=== PATIENT | male | born 1980 | race Caucasian/White ===

== ENCOUNTER 2020-07-23 13:55 | Outpatient (REF) | payer OTHER, SELFPAY | END 2020-07-23 13:56 | disposition home or self-care (01) | LOC: HO.LAB 13:55 | PROVIDERS: Visit Provider Internal Medicine | DX: Z20.828 Contact with and (suspected) exposure to other viral communicable diseases (principal) | CPT/HCPCS: C9803; U0003 ==

== ENCOUNTER 2022-10-01 09:31 | Outpatient (REF) | payer OTHER, SELFPAY ==
[2022-10-01 11:32] LABS: Hematocrit 38.7 % (42.0-52.0); Hemoglobin 13.5 g/dl (14.0-18.0); Mean Corpuscular HGB Conc 34.9 g/dl (31.0-36.0); Mean Corpuscular Volume 88.8 fL (80.0-98.0); Mean Platelet Volume 10.9 fL (9.4-12.4); Platelet Count 268 X10*3/uL (160-400); Red Blood Count 4.36 X10*6/uL (4.60-5.80); Red Cell Distribution Width 11.2 % (11.0-16.0); White Blood Count 5.7 X10*3/uL (4.8-10.8)
[2022-10-01 11:57] LABS: Alanine Aminotransferase 26 U/L (0-40); Albumin Level 4.3 g/dL (3.5-5.0); Alkaline Phosphatase 75 U/L (39-117); Anion Gap 13 (12-20); Aspartate Amino Transferase 23 U/L (5-37); Bilirubin Total 0.6 mg/dL (0.0-1.0); Blood Urea Nitrogen 14 mg/dL (9-16); Calcium 9.5 mg/dL (8.4-10.2); Carbon Dioxide 27 mmol/L (22-29); Chloride 105 mmol/L (96-108); Cholesterol 121 mg/dL; Estimated Glomerular Filt Rate > 60; Glucose Fasting 106 mg/dL (60-99); HDL Cholesterol 30 mg/dL; LDL Cholesterol Calculated 80 mg/dl; Potassium 4.5 mmol/L (3.3-5.1); Sodium 140 mmol/L (135-145); Total Protein 7.2 g/dL (6.5-8.0); Triglycerides 58 mg/dL
[2022-10-01 12:21] LABS: TSH reflex Free T4 2.07 uIU/mL (0.32-4.0)
== END 2022-10-01 09:32 | disposition home or self-care (01) ==
LOC: HO.WFDLDS 09:31
PROVIDERS: Visit Provider Nurse Practitioner Family
DX: Z00.00 Encounter for general adult medical examination without abnormal findings (principal)
CPT/HCPCS: 36415; 80053; 80061; 84443; 85027

== ENCOUNTER 2022-12-03 08:59 | Outpatient (REF) | payer OTHER, SELFPAY ==
[2022-12-03 12:01] LABS: Hematocrit 41.9 % (42.0-52.0); Hemoglobin 14.6 g/dl (14.0-18.0); Mean Corpuscular HGB Conc 34.8 g/dl (31.0-36.0); Mean Corpuscular Hemoglobin 30.6 pg (27.0-33.0); Mean Corpuscular Volume 87.8 fL (80.0-98.0); Mean Platelet Volume 11.8 fL (9.4-12.4); Platelet Count 198 X10*3/uL (160-400); Red Blood Count 4.77 X10*6/uL (4.60-5.80); Red Cell Distribution Width 11.9 % (11.0-16.0); White Blood Count 6.6 X10*3/uL (4.8-10.8)
[2022-12-09 18:42] LABS: PSA, Ultra Sensitive 0.44 ng/mL
== END 2022-12-03 09:00 | disposition home or self-care (01) ==
LOC: HO.WFDLDS 08:59
PROVIDERS: Visit Provider Hospitalist
DX: D64.9 Anemia, unspecified (principal); Z12.5 Encounter for screening for malignant neoplasm of prostate
CPT/HCPCS: 36415; 84153; 85027

== ENCOUNTER 2023-10-22 08:43 | Outpatient (AMB) | payer OTHER, SELFPAY ==
--- NOTE | 2023-10-22 08:48 | A.OFFPC_ITS ---
Vital Signs 10/22/23 08:55 Height 5 ft 11 in Weight 231 lb BMI 32.2 BP 108/56 L Blood Pressure Location Lt brachial Position Sitting Respiration 12 Pulse 57 Pulse Source Pulse Oximeter Temp 97.3 F Temp Source Temporal Artery Scan Pulse Oximetry (%) 98 Oxygen Delivery Method Room Air Intake Visit Reasons: DANYELL from [facility] Intake Note: Patient is here for a transfer of care from to . Patient reports L hand shaking, patient states shaking is at random. Patient reports recent loss of his father about 2 weeks ago. Patient reports concern for L large toenail. Felt Coverer Required: No Accompanied by: Self / Same As Patient Allergies mushroom [MUSHROOM] Allergy (Intermediate, Verified 10/22/23 09:35) SHORTNESS OF BREATH Seasonal Allergies Allergy (Intermediate, Verified 10/22/23 09:35) Unknown Medication List - Last Reconciled 10/22/23 by Aylin Pizarro, SOFTWARE TESTER- aripiprazole 5 mg PO aripiprazole ER mg IM bupropion HCl 75 mg PO DAILY cetirizine 10 mg PO DAILY cholecalciferol (vitamin D3) 50 mcg PO DAILY fluticasone propionate 50 mcg/actuation 2 sprays intranasal DAILY 1 month melatonin 3 mg PO BEDTIME meloxicam 15 mg PO DAILY sodium chloride 0.65% 2 sprays intranasal Q3H Tobacco use date assessed: 10/22/23 Dental Screening Dental Screen Date: 10/22/23 Did you have a dental visit in the last 12 months?: Yes Did you have a dental problem in the last 6 months where you did not have access to dental care?: No Was dental information given to patient?: Patient has dentist HPI HPI Comments History of Present Illness Details 43-year-old male with anemia, schizoaffe ctive disorder, MDD, generalized anxiety disorder, obesity, gout, chronic tension headaches, GERD, vitamin-D deficiency, allergic rhinitis Status post tracheostomy in February 2023 due to a retropharyngeal abscess with extension into the superior mediastinum positive for strep Specialists ENT * cleared for f/u Psych N Counselor [facility] Neurology - never did f/u Orthopedics Here today to est care Left great toe nail thickened for months. Reports started after getting in grown toe nail. Tx by podiatry. No at home treatment Left hand tremor. Acute on chronic. Worse since passing of his Dad 2 weeks ago. Was referred to neurology in the past by previous PCP however he did not attend this appointment. He has not sure why. Reports cramping in right calf. Occurs at bedtime. Reports good fluid intake. Has tried to massage the area and deep breathe to help. Walking off can help. Schizoaffective disorder, MDD, generalized anxiety disorder all managed by outside prescriber. Reports noncompliance with his medications. He is also active with a counselor States that his dad age 79 2 weeks ago of colon cancer. He wonders if he should have an early colon cancer screening with a colonoscopy. He has not currently active with GI and interested in a referral. [facility] Medical History Left knee pain History of retropharyngeal abscess Tremor of left hand Right anterior knee pain Surgical History S/P emergency tracheotomy for assistance in breathing History of surgery Labral tear of right hip joint Family History Father Colon cancer Alcoholism Mother Arthritis Daughter GERD (gastroesophageal reflux disease) Family/Other FH: mental illness Schizo affective schizophrenia Brother In good health Social History (Updated 10/22/23 @ 09:09 by Anushka Johnson CMA) Household Members: Other Household Members Other:: [facility] Housing: Other ([facility]) 75 years or older and lives alone: No Alcohol intake: never Patient Tobacco Use Status: Never used Tobacco e-Cigarette/Vaping Use: Never Used Second Hand Smoke Exposure: No service: No Current occupational status: employed 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 1. Little interest or pleasure in doing things: not at all 2. Feeling down, depressed, or hopeless: several days 3. Trouble falling or staying asleep, or sleeping too much: not at all 4. Feeling tired or having little energy: not at all 5. Poor appetite or overeating: not at all 6. Feeling bad about yourself - or that you are a failure or have let yourself or your family down: not at all 7. Trouble concentrating on things, such as reading the newspaper or watching television: not at all 8. Moving or speaking so slowly that other people could have noticed. Or the opposite - being so fidgety or restless that you have been moving around a lot more than usual: not at all 9. Thoughts that you would be better off or of hurting yourself in some way: not at all Total score: 1 Depression Screening Interpretation: Positive Depression Screening Follow-up: Existing condition and In treatment Depression Screening Done: Yes 00089 - PHQ-9 Billing: Yes Source: Developed by Drs. Anderson Mijares, Shanda Sloan, Gurpreet Cabezas and colleagues, with an educational sandra from [employer]. Thrive Questionnaire Date Thrive assessed: 10/22/23 I am a: Patient What is your living situation today?: I have a steady place to live Within the past 12 months, did the food you bought not last and you didn't have the money to get more?: Never true Within the past 12 months, did you worry whether your food would run out before you got money to buy more?: Never true Do you have trouble paying for medicines?: No Do you have trouble getting transportation to medical appointments?: No Do you have trouble paying your heating and electricity bill?: No Do you have trouble taking care of your child, family member or friend?: No Do you have trouble with day-to-day activities such as bathing, preparing meals, shopping, managing finances, etc.?: No Are you currently unemployed and looking for a job?: No Are you interested in more education?: No Please select the resources that you would like help with: None Currently or been in a relationship where the following occur: no concerns reported THRIVE Score: 0 AUDIT C Alcohol Use Questionnaire (AUDIT-C) 1. How often do you have a drink containing alcohol?: Never 3. How often do you have six or more drinks on one occasion?: Never Total Score: 0 Score Reviewed/Action Taken: Yes NIRU-7 AMB Questionnaire NIRU-7 Date NIRU - 7 assessed: 10/22/23 Feeling nervous, anxious, or on edge: 0 = Not at all Not being able to stop or control worryin = Not at all Worrying too much about different things: 0 = Not at all Trouble relaxin = Not at all Being so restless that it is hard to sit still: 0 = Not at all Becoming easily annoyed or irritable: 0 = Not at all Feeling afraid as if something awful might happen: 0 = Not at all Total NIRU-7 score (0-4 normal; 5-9 mild; 10-14 moderate; 15-21 severe): 0 Source: Developed by Drs. Anderson Mijares, Shanda Sloan, Gurpreet Cabezas and colleagues, with an educational sandra from [employer]. NIRU-7 Assessment Billing NIRU-7 Assessment Tool: NIRU-7 Assessment 27279 Review of Systems Const All systems reviewed & are unremarkable except as noted in HPI and below Physical exam (Primary Care) Vital Signs: Last Vital Signs Temp 97.3 F 10/22/23 08:55 Pulse 57 10/22/23 08:55 Resp 12 10/22/23 08:55 BP 108/56 L 10/22/23 08:55 Pulse Ox 98 10/22/23 08:55 Oxygen Delivery Method Room Air 10/22/23 08:55 BMI result Body Mass Index 32.2 Tobacco/Smoking Status: Tobacco use Status Tobacco use date assessed 10/22/23 10/22/23 09:08 Patient Tobacco Use Status Never used Tobacco 10/22/23 09:09 e-Cigarette/Vaping Use Never Used 10/22/23 09:09 PHQ-9: PHQ-9 Score PHQ-9: Total score 1 10/22/23 09:08 Depression Screening Interpretation: Positive Depression Screening Follow-up: Existing condition and In treatment Thrive Assessment: Date of Thrive Assessment Date Thrive assessed 10/22/23 10/22/23 09:08 Currently or been in a relationship where the following occur: no concerns reported Const Other: awake alert NAD MMM RRR LS CTAB Left great toe nail onychomycosis Right lower ext WNL. Reports mild tenderness w/ calf palpation. Neurovasc intact Mood and affect appropriate No tremors noted during exam Assessment and Plan Assessment & Plan (1) MDD (major depressive disorder), recurrent episode: Comment: Currently managed on Abilify injectable as well as p.o., and bupropion by outside prescriber at [facility]. Also active with Psychiatry. Encouraged to follow up Code(s): F33.9 - Major depressive disorder, recurrent, unspecified Qualifiers: Major depression episode severity: moderate Qualified Code(s): F33.1 - Major depressive disorder, recurrent, moderate (2) NIRU (generalized anxiety disorder): Comment: Currently managed on Abilify injectable as well as p.o., and bupropion by outside prescriber at [facility]. Also active with Psychiatry. Encouraged to follow up Code(s): F41.1 - Generalized anxiety disorder (3) Vitamin D deficiency: Comment: Currently on vitamin D3 50 mcgs p.o. daily. We will check a vitamin-D level today Code(s): E55.9 - Vitamin D deficiency, unspecified (4) Allergic rhinitis: Comment: Managed with Flonase. Also taking cetirizine. Continue these medications as they are controlling his symptoms Code(s): J30.9 - Allergic rhinitis, unspecified Qualifiers: Allergic rhinitis seasonality: seasonal Allergic rhinitis trigger: other Qualified Code(s): J30.89 - Other allergic rhinitis (5) Benign essential tremor: Comment: Affecting the left hand only. We will refer to neurology for further evaluation and treatment Code(s): G25.0 - Essential tremor (6) Schizoaffective disorder: Comment: Currently managed on Abilify injectable as well as p.o., and bupropion by outside prescriber at [facility]. Also active with Psychiatry. Encouraged to follow up Code(s): F25.9 - Schizoaffective disorder, unspecified Qualifiers: Schizoaffective disorder type: bipolar Qualified Code(s): F25.0 - Schizoaffective disorder, bipolar type (7) Obesity (BMI 30.0-34.9): Comment: BMI 32.2. Lifestyle modifications encouraged Code(s): E66.9 - Obesity, unspecified (8) Onychomycosis: Comment: Affecting left great toenail. We will refer to podiatry for further evaluation and treatment Code(s): B35.1 - Tinea unguium (9) Family history of colon cancer: Comment: Dad, age 79 of colon CA 2024 He is interested in meeting with GI to see what his risks are to see if he would benefit from an earlier colon cancer screening Code(s): Z80.0 - Family history of malignant neoplasm of digestive organs (10) Leg cramping: Code(s): R25.2 - Cramp and spasm Plan: We will check electrolytes today. And bring him back to discuss. However this is only affecting 1 lichen it seems to be mostly at night. It sounds like a Charley horse. Likely he will just need supportive care such as hydration (11) Anemia: Comment: . Noted in his records. We will obtain labs today and follow up with him Code(s): D64.9 - Anemia, unspecified Qualifiers: Anemia type: unspecified type Qualified Code(s): D64.9 - Anemia, unspecified (12) Prostate cancer screening: Code(s): Z12.5 - Encounter for screening for malignant neoplasm of prostate Plan This note is constructed using voice recognition software. While every effort has been made to ensure accuracy in macaroni maker, still errors may have been included Sometimes, these errors may affect the content or meaning of the given sentence . Total time spent caring for the patient today was 45 minutes. This includes time spent before the visit reviewing the chart, time spent during the visit, and time spent after the visit on documentation Orders: Orders Comprehensive [place]. Panel Fast Today D64.9 - Anemia, unspecified, E55.9 - Vitamin D deficiency, unspecified, F33.9 - Major depressive disorder, recurrent, unspecified, F41.1 - Generalized anxiety disorder, J30.9 - Allergic rhinitis, unspecified, M10.9 - Gout, unspecified Vitamin D 1,25 dihydroxy Today D64.9 - Anemia, unspecified, E55.9 - Vitamin D deficiency, unspecified, F33.9 - Major depressive disorder, recurrent, unspecified, F41.1 - Generalized anxiety disorder, J30.9 - Allergic rhinitis, unspecified, M10.9 - Gout, unspecified Lipid Panel Today D64.9 - Anemia, unspecified, E55.9 - Vitamin D deficiency, unspecified, F33.9 - Major depressive disorder, recurrent, unspecified, F41.1 - Generalized anxiety disorder, J30.9 - Allergic rhinitis, unspecified, M10.9 - Gout, unspecified IRON PROFILE Today D64.9 - Anemia, unspecified, K21.9 - Gastro-esophageal reflux disease without esophagitis, Z12.5 - Encounter for screening for malignant neoplasm of prostate Vitamin B12 and Folate Today D64.9 - Anemia, unspecified, K21.9 - Gastro- esophageal reflux disease without esophagitis, Z12.5 - Encounter for screening for malignant neoplasm of prostate Microalbumin, Random (w Creat) Today D64.9 - Anemia, unspecified, E55.9 - Vi tamin D deficiency, unspecified, F33.9 - Major depressive disorder, recurrent, unspecified, F41.1 - Generalized anxiety disorder, J30.9 - Allergic rhinitis, unspecified, M10.9 - Gout, unspecified TSH reflex Free T4 Today D64.9 - Anemia, unspecified, E55.9 - Vitamin D deficiency, unspecified, F33.9 - Major depressive disorder, recurrent, unspecified, F41.1 - Generalized anxiety disorder, J30.9 - Allergic rhinitis, unspecified, M10.9 - Gout, unspecified PSA,Total (Free>4and<10) Today D64.9 - Anemia, unspecified, E55.9 - Vitamin D deficiency, unspecified, F33.9 - Major depressive disorder, recurrent, unspecified, F41.1 - Generalized anxiety disorder, J30.9 - Allergic rhinitis, unspecified, M10.9 - Gout, unspecified Magnesium Today D64.9 - Anemia, unspecified, E55.9 - Vitamin D deficiency, unspecified, F33.9 - Major depressive disorder, recurrent, unspecified, F41.1 - Generalized anxiety disorder, J30.9 - Allergic rhinitis, unspecified, M10.9 - Gout, unspecified Complete Blood Count no Diff Today D64.9 - Anemia, unspecified, K21.9 - Gastro- esophageal reflux disease without esophagitis, Z12.5 - Encounter for screening for malignant neoplasm of prostate Referrals Podiatry Referral B35.1 - Tinea unguium Neurology Referral D64.9 - Anemia, unspecified, E55.9 - Vitamin D deficiency, unspecified, F33.9 - Major depressive disorder, recurrent, unspecified, F41.1 - Generalized anxiety disorder, G25.0 - Essential tremor, J30.9 - Allergic rhinitis, unspecified, M10.9 - Gout, unspecified Gastroenterology Referral D64.9 - Anemia, unspecified, E55.9 - Vitamin D deficiency, unspecified, F33.9 - Major depressive disorder, recurrent, unspecified, F41.1 - Generalized anxiety disorder, J30.9 - Allergic rhinitis, unspecified, M10.9 - Gout, unspecified, Z80.0 - Family history of malignant neoplasm of digestive organs Coding Level of Care Code Est Pt Level 5 (22514) Diagnoses Moderate episode of recurrent major depressive disorder F33.1 Major depression episode severity: moderate NIRU (generalized anxiety disorder) F41.1 Vitamin D deficiency E55.9 Seasonal allergic rhinitis due to other allergic trigger J30.89 Allergic rhinitis seasonality: seasonal Allergic rhinitis trigger: other Benign essential tremor G25.0 Schizoaffective disorder, bipolar type F25.0 Schizoaffective disorder type: bipolar Obesity (BMI 30.0-34.9) E66.9 Onychomycosis B35.1 Family history of colon cancer Z80.0 Leg cramping R25.2 Anemia, unspecified type D64.9 Anemia type: unspecified type Prostate cancer screening Z12.5 Additional Codes NIRU-7 Assessment Billing - NIRU-7 Assessment Tool: NIRU-7 Assessment 22924 ([id number])
[2023-10-22 08:55] VITALS: BP 108/56; PULSE 57; RESP 12; TEMP 36.3; O2SAT 98; BMI 32.2
== END 2023-10-22 09:57 | disposition home or self-care (01) ==
PROVIDERS: PCP Nurse Practitioner Family; Visit Provider Nurse Practitioner Family
DX: G25.0 Essential tremor (principal); F33.1 Major depressive disorder, recurrent, moderate; F25.0 Schizoaffective disorder, bipolar type; F41.1 Generalized anxiety disorder; E55.9 Vitamin D deficiency, unspecified; J30.89 Other allergic rhinitis; E66.9 Obesity, unspecified; B35.1 Tinea unguium; Z80.0 Family history of malignant neoplasm of digestive organs; R25.2 Cramp and spasm; D64.9 Anemia, unspecified; Z12.5 Encounter for screening for malignant neoplasm of prostate
CPT/HCPCS: 99215

== ENCOUNTER 2023-10-22 09:46 | Outpatient (REF) | payer OTHER, SELFPAY ==
[2023-10-22 11:42] LABS: Hematocrit 38.8 % (42.0-52.0); Hemoglobin 13.8 g/dl (14.0-18.0); Mean Corpuscular HGB Conc 35.6 g/dl (31.0-36.0); Mean Corpuscular Hemoglobin 31.9 pg (27.0-33.0); Mean Corpuscular Volume 89.6 fL (80.0-98.0); Mean Platelet Volume 11.6 fL (9.4-12.4); Platelet Count 178 X10*3/uL (160-400); Red Blood Count 4.33 X10*6/uL (4.60-5.80); Red Cell Distribution Width 11.8 % (11.0-16.0)
[2023-10-22 12:15] LABS: Alanine Aminotransferase 37 U/L (0-40); Albumin Level 4.4 g/dL (3.5-5.0); Alkaline Phosphatase 59 U/L (39-117); Anion Gap 11 (12-20); Aspartate Amino Transferase 26 U/L (5-37); Bilirubin Total 0.7 mg/dL (0.0-1.0); Blood Urea Nitrogen 14 mg/dL (9-16); Calcium 9.4 mg/dL (8.4-10.2); Carbon Dioxide 28 mmol/L (22-29); Chloride 106 mmol/L (96-108); Cholesterol 123 mg/dL (<200); Estimated Glomerular Filt Rate 55; Glucose Fasting 101 mg/dL (60-99); HDL Cholesterol 29 mg/dL (>40); Iron 123 mcg/dL (45-160); LDL Cholesterol Calculated 75 mg/dL (<100); Magnesium 1.9 mg/dL (1.6-2.6); Percent Iron Saturation 38 % (15-50); Potassium 4.1 mmol/L (3.3-5.1); Sodium 141 mmol/L (135-145); Total Iron Binding Capacity 327 mcg/dL (228-428); Total Protein 7.6 g/dL (6.5-8.0); Triglycerides 98 mg/dL (<150); Unsaturated Iron Binding 204 ug/dL
[2023-10-22 12:31] LABS: PSA,Total (Free>4and<10) 0.53 ng/mL (0.00-4.00)
[2023-10-22 12:33] LABS: TSH reflex Free T4 3.46 uIU/mL (0.32-4.0)
[2023-10-22 12:40] LABS: Creatinine Urine 215.61 mg/dL; Microalbum/Creatinine Ratio Ur 2.3 ug/mg cr (<30)
[2023-10-22 12:45] LABS: Folate 7.2 ng/mL (> or = 4.0); Vitamin B12 203 pg/mL (200-900)
[2023-10-27 13:04] LABS: VITAMIN D (1,25 OH) D3 41 pg/mL; Vit D (1,25-Dihydroxy) Total 41 pg/mL (18-72); Vitamin D (1,25 OH) D2 <8 pg/mL
== END 2023-10-22 09:47 | disposition home or self-care (01) ==
LOC: HO.WFDLDS 09:46
PROVIDERS: Visit Provider Nurse Practitioner Family
DX: Z12.5 Encounter for screening for malignant neoplasm of prostate (principal); Z13.6 Encounter for screening for cardiovascular disorders; J30.9 Allergic rhinitis, unspecified; E55.9 Vitamin D deficiency, unspecified; M10.9 Gout, unspecified; F41.1 Generalized anxiety disorder; F33.9 Major depressive disorder, recurrent, unspecified; D64.9 Anemia, unspecified; K21.9 Gastro-esophageal reflux disease without esophagitis
CPT/HCPCS: 36415; 80053; 80061; 82043; 82570; 82607; 82652; 82746; 83540; 83735; 84153; 84443; 85027

== ENCOUNTER 2023-11-12 08:48 | Outpatient (AMB) | payer OTHER, SELFPAY ==
--- NOTE | 2023-11-12 09:03 | A.OFFPC_ITS ---
Vital Signs 11/12/23 09:18 Height 5 ft 11 in Weight 230 lb 2 oz BMI 32.1 BP 104/68 Blood Pressure Location Lt brachial Position Sitting Respiration 12 Pulse 74 Pulse Source Pulse Oximeter Temp 97 F Temp Source Temporal Artery Scan Pulse Oximetry (%) 99 Intake Visit Reasons: f/u labs Intake Note: Patient is here for a review of labs. Land Surveyor Assistant Required: No Accompanied by: Self / Same As Patient Allergies mushroom [MUSHROOM] Allergy (Intermediate, Verified 11/12/23 09:39) SHORTNESS OF BREATH Seasonal Allergies Allergy (Intermediate, Verified 11/12/23 09:39) Unknown Medication List - Last Reconciled 11/12/23 by Aylin Pizarro, DIRECTOR FINANCIAL SERVICES- aripiprazole 5 mg PO aripiprazole ER mg IM bupropion HCl 75 mg PO DAILY cetirizine 10 mg PO DAILY cholecalciferol (vitamin D3) 50 mcg PO DAILY fluticasone propionate 50 mcg/actuation 2 sprays intranasal DAILY 1 month melatonin 3 mg PO BEDTIME meloxicam 15 mg PO DAILY sodium chloride 0.65% 2 sprays intranasal Q3H Tobacco use date assessed: 10/22/23 HPI HPI Comments History of Present Illness Details 43-year-old male with anemia, schizoaffe ctive disorder, MDD, generalized anxiety disorder, obesity, gout, chronic tension headaches, GERD, vitamin-D deficiency, allergic rhinitis, CKD 2, IFG Status post tracheostomy in 2022 due to a retropharyngeal abscess with extension into the superior mediastinum positive for strep Specialists ENT Psych Neurology Orthopedics Podiatry GI Here today to f/u on labs new rash front of left lower leg, itchy. Feels like dry skin. worried as dad had something. denies it was cancer. cramps havent happened lately. Tremor is the same. appts w/ GI, podiatry and Neuro pending Labs from 10/22/2023 show a low RBC, hemoglobin hematocrit, normal electrolytes, BUN 14, creatinine 1.41, GFR 55, fasting glucose 101, normal magnesium, normal iron, normal liver enzymes, normal cholesterol, normal PSA, B12 on the low end of normal at 203, normal folate, TSH on the high end of normal 3.46, normal urine creatinine ratio PFSH Medical History Left knee pain History of retropharyngeal abscess Tremor of left hand Right anterior knee pain Surgical History S/P emergency tracheotomy for assistance in breathing History of surgery Labral tear of right hip joint Family History Father Colon cancer Alcoholism Mother Arthritis Daughter GERD (gastroesophageal reflux disease) Family/Other FH: mental illness Schizo affective schizophrenia Brother In good health Social History (Updated 11/12/23 @ 09:06 by Anushka Johnson CMA) Household Members: Other Household Members Other:: [facility] Both parents involved: No Caregiver staying overnight: No Housing: Other ([facility] [facility]) Are you a primary healthcare marketer to a significant other at home: No Do you presently have visiting nurse or other home services: No 75 years or older and lives alone: No Alcohol intake: never Patient Tobacco Use Status: Never used Tobacco e-Cigarette/Vaping Use: Never Used Second Hand Smoke Exposure: No service: No Current occupational status: employed 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 Anderson Mijares, Shanda Sloan, Gurpreet Cabezas and colleagues, with an educational sandra from [employer]. Review of Systems Const All systems reviewed & are unremarkable except as noted in HPI and below Physical exam (Primary Care) Vital Signs: Last Vital Signs Temp 97 F 11/12/23 09:18 Pulse 74 11/12/23 09:18 Resp 12 11/12/23 09:18 BP 104/68 11/12/23 09:18 Pulse Ox 99 11/12/23 09:18 BMI result Body Mass Index 32.1 Tobacco/Smoking Status: Tobacco use Status Tobacco use date assessed 10/22/23 11/12/23 09:09 Patient Tobacco Use Status Never used Tobacco 11/12/23 09:09 e-Cigarette/Vaping Use Never Used 11/12/23 09:09 Thrive Assessment: Date of Thrive Assessment Date Thrive assessed 10/22/23 11/12/23 09:09 Const Other: awake alert NAD MMM RRR LS CTAB Left great toe nail onychomycosis Left anterior lower leg is what appears to be secondary excoriations from scratching w/ scabs, healing w/o infection. Mood and affect appropriate No tremors noted during exam Assessment and Plan Assessment & Plan (1) Anemia: Comment: noted on labs with normal Iron and low normal B12. Hgb trending improved Plan: start a daily MVI with minerals and repeat labs in 3 months Code(s): D64.9 - Anemia, unspecified Qualifiers: Anemia type: unspecified type Qualified Code(s): D64.9 - Anemia, unspecified (2) IFG (impaired fasting glucose): Comment: lifestyle mods & monitoring repeat labs in 3 months to include a1c Code(s): R73.01 - Impaired fasting glucose (3) CKD (chronic kidney disease) stage 3, GFR 30-59 ml/min: Comment: 10/2023 BUN 14, creatinine 1.41, GFR 55 avoid nephrotoxic agents, monitor, hydrate Code(s): N18.30 - Chronic kidney disease, stage 3 unspecified Qualifiers: Chronic kidney disease stage 3 subtype: stage 3a (GFR 45-59) Qualified Code(s): N18.31 - Chronic kidney disease, stage 3a (4) Excoriation of left lower leg: Code(s): S80.812A - Abrasion, left lower leg, initial encounter Qualifiers: Encounter type: initial encounter Qualified Code(s): S80.812A - Abrasion, left lower leg, initial encounter Plan: short course of topical low dose steroids bid x 5 days and liberal application of daily moisturizer like cerve BID call if s/sx of infection or delayed healing Plan This note is constructed using voice recognition software. While every effort has been made to ensure accuracy in policy issue clerk, still errors may have been included Sometimes, these errors may affect the content or meaning of the given sentence . Total time spent caring for the patient today was 30 minutes. This includes time spent before the visit reviewing the chart, time spent during the visit, and time spent after the visit on documentation Orders: Orders Comprehensive [place]. Panel Fast 01/22/24 D64.9 - Anemia, unspecified, N18.30 - Chronic kidney disease, stage 3 unspecified, R73.01 - Impaired fasting glucose Complete Blood Count no Diff 01/22/24 D64.9 - Anemia, unspecified, N18.30 - Chronic kidney disease, stage 3 unspecified, R73.01 - Impaired fasting glucose Hemoglobin A1c 01/22/24 D64.9 - Anemia, unspecified, N18.30 - Chronic kidney disease, stage 3 unspecified, R73.01 - Impaired fasting glucose IRON PROFILE 01/22/24 D64.9 - Anemia, unspecified, N18.30 - Chronic kidney disease, stage 3 unspecified, R73.01 - Impaired fasting glucose Vitamin B12 and Folate 01/22/24 D64.9 - Anemia, unspecified, N18.30 - Chronic kidney disease, stage 3 unspecified, R73.01 - Impaired fasting glucose Medications: New multivitamin with minerals (Daily Multivitamin-Minerals tablet) administer with a meal 1 tab PO DAILY 90 tabs 3RF hydrocortisone 1% (Dermarest Eczema (hydrocortisone)) apply sparingly to left lower ext twice per day x 5 days then STOP 1 appl topical BID 120 mL 0RF Patient Instructions: RTO 3 MONTHS 3 MONTHS 30 MIN W ME FU ANEMIA, CKD, IFG//LABS Coding Level of Care Code Est Pt Level 4 (61875) Diagnoses Anemia, unspecified type D64.9 Anemia type: unspecified type IFG (impaired fasting glucose) R73.01 Stage 3a chronic kidney disease N18.31 Chronic kidney disease stage 3 subtype: stage 3a (GFR 45-59) Excoriation of left lower leg, initial encounter S80.142T Encounter type: initial encounter
[2023-11-12 09:18] VITALS: BP 104/68; PULSE 74; RESP 12; TEMP 36.1; O2SAT 99; BMI 32.1
== END 2023-11-12 09:54 | disposition home or self-care (01) ==
PROVIDERS: PCP Nurse Practitioner Family; Visit Provider Nurse Practitioner Family
DX: D64.9 Anemia, unspecified (principal); R73.01 Impaired fasting glucose; N18.31 Chronic kidney disease, stage 3a; S80.812A Abrasion, left lower leg, initial encounter
CPT/HCPCS: 99214

== ENCOUNTER 2024-02-07 10:48 | Outpatient (AMB) | payer OTHER, SELFPAY ==
--- NOTE | 2024-02-07 10:53 | A.OFFPC_ITS ---
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: No Accompanied by: Self / Same As Patient Allergies mushroom [MUSHROOM] Allergy (Intermediate, Verified 02/07/24 11:01) SHORTNESS OF BREATH Seasonal Allergies Allergy (Intermediate, Verified 02/07/24 11:01) Unknown Medication List - Last Reconciled 02/07/24 by Aylin Pizarro, LINEN WORKER- aripiprazole 5 mg PO aripiprazole ER mg IM bupropion HCl 75 mg PO DAILY cetirizine 10 mg PO DAILY fluticasone propionate 50 mcg/actuation 2 sprays intranasal DAILY 1 month melatonin 3 mg PO BEDTIME meloxicam 15 mg PO DAILY multivitamin with minerals (Daily Multivitamin-Minerals tablet) 1 tab PO DAILY sodium chloride 0.65% 2 sprays intranasal Q3H Tobacco use date assessed: 10/22/23 Dental Screening Dental Screen Date: 10/22/23 HPI HPI Comments History of Present Illness Details 43-year-old male with anemia, schizoaffe ctive disorder, MDD, generalized anxiety disorder, obesity, gout, chronic tension headaches, GERD, vitamin-D deficiency, allergic rhinitis, CKD 2, IFG Status post tracheostomy in 2022 due to a retropharyngeal abscess with extension into the superior mediastinum positive for strep [facility]ists ENT Psych Neurology first appt in February 2024 Orthopedics GI Labs from 10/22/2023 show a low RBC, hemoglobin hematocrit, normal electrolytes, BUN 14, creatinine 1.41, GFR 55, fasting glucose 101, normal magnesium, normal iron, normal liver enzymes, normal cholesterol, normal PSA, B12 on the low end of normal at 203, normal folate, TSH on the high end of normal 3.46, normal urine creatinine ratio Here today for routine f/u of chronic conditions: Did not get labs done before appt today, will do so after this appt. He is not fasting so fasting cmp d/c, cmp ordered Results and changes will be communicated via the portal Taking MVI as directed. Rash resolved s/p treatment Admits to having some troubles psychiatrically; working closely w/ his pysch team. This has interefered w/ him making his f/u. Still waiting on appts w Podiatrty. Info for podiatry referral given to him adele marr, advised to call to schedule appt. Had appt with GI scheduled 12/2023, missed this. He will call to reschedule. [facility] Medical History Left knee pain History of retropharyngeal abscess Tremor of left hand Right anterior knee pain Surgical History S/P emergency tracheotomy for assistance in breathing History of surgery Labral tear of right hip joint Family History Father Colon cancer Alcoholism Mother Arthritis Daughter GERD (gastroesophageal reflux disease) Family/Other FH: mental illness Schizo affective schizophrenia Brother In good health Social History Household Members: Other Household Members Other:: [employer] [facility] Housing: Other ([facility]) Are you a primary care provider to a significant other at home: No Do you presently have visiting nurse or other home services: No Alcohol intake: never Patient Tobacco Use Status: Never used Tobacco e-Cigarette/Vaping Use: Never Used Second Hand Smoke Exposure: No service: No Current occupational status: employed Current occupation: [employer] Current occupational exposures/hazards: No Sexual orientation: Straight/Heterosexual Gender identity: Male Cognitive needs: No Hearing needs: No Vision needs: Yes Questionnaire Thrive Questionnaire Date Thrive assessed: 10/22/23 NIRU-7 AMB Questionnaire NIRU-7 Date NIRU - 7 assessed: 10/22/23 Source: Developed by Drs. Anderson Mijares, Shanda Sloan, Gurpreet Cabezas and colleagues, with an educational sandra from [employer]. Review of Systems Const All systems reviewed & are unremarkable except as noted in HPI and below Physical exam (Primary Care) Vital Signs: Last Vital Signs Temp 97.7 F 02/07/24 10:57 Pulse 73 02/07/24 10:57 Resp 14 02/07/24 10:57 BP 118/70 02/07/24 10:57 Pulse Ox 98 02/07/24 10:57 Oxygen Delivery Method Room Air 02/07/24 10:57 BMI result Body Mass Index 32.4 Tobacco/Smoking Status: Tobacco use Status Tobacco use date assessed 10/22/23 02/07/24 10:55 Patient Tobacco Use Status Never used Tobacco 02/07/24 10:55 e-Cigarette/Vaping Use Never Used 02/07/24 10:55 Thrive Assessment: Date of Thrive Assessment Date Thrive assessed 10/22/23 02/07/24 10:55 Results Reviewed Results Reviewed: Labs from today show improved Iron Def Anemia , lower b12, stable renal labs and Hga1c 6% Assessment and Plan Assessment & Plan (1) CKD (chronic kidney disease) stage 3, GFR 30-59 ml/min: Comment: 10/2023 BUN 14, creatinine 1.41, GFR 55 avoid nephrotoxic agents, monitor, hydrate Code(s): N18.30 - Chronic kidney disease, stage 3 unspecified Qualifiers: Chronic kidney disease stage 3 subtype: stage 3a (GFR 45-59) Qualified Code(s): N18.31 - Chronic kidney disease, stage 3a (2) IFG (impaired fasting glucose): Comment: lifestyle mods & monitoring repeat labs in 3 months to include a1c Code(s): R73.01 - Impaired fasting glucose (3) Onychomycosis: Comment: Affecting left great toenail. refer to podiatry for further evaluation and treatment Code(s): B35.1 - Tinea unguium (4) Vitamin D deficiency: Comment: was on vitamin D3 50 mcgs p.o. daily vitamin-D level > 40. started on MVI Cont MVI repeat Vit D annually Code(s): E55.9 - Vitamin D deficiency, unspecified (5) Anemia: Comment: noted on labs with normal Iron and low B12. Hgb trending improved Plan: cont daily MVI with minerals ADD b12 1000mcg Qd and repeat labs in 3 months Code(s): D64.9 - Anemia, unspecified Qualifiers: Anemia type: unspecified type Qualified Code(s): D64.9 - Anemia, unspecified Orders: Orders Comprehensive [place]. Panel Fast 05/23/24 E55.9 - Vitamin D deficiency, unspecified, N18.31 - Chronic kidney disease, stage 3a, R73.01 - Impaired fasting glucose Lipid Panel 05/23/24 E55.9 - Vitamin D deficiency, unspecified, N18.31 - Chronic kidney disease, stage 3a, R73.01 - Impaired fasting glucose Vitamin B12 and Folate 05/23/24 E55.9 - Vitamin D deficiency, unspecified, N18.31 - Chronic kidney disease, stage 3a, R73.01 - Impaired fasting glucose Complete Blood Count no Diff 05/23/24 E55.9 - Vitamin D deficiency, unspecified, N18.31 - Chronic kidney disease, stage 3a, R73.01 - Impaired fasting glucose Hemoglobin A1c 04/23/24 R73.01 - Impaired fasting glucose Comprehensive Met. Panel Today N18.31 - Chronic kidney disease, stage 3a, R73.01 - Impaired fasting glucose Vitamin D 1,25 dihydroxy 05/23/24 E55.9 - Vitamin D deficiency, unspecified, N18.31 - Chronic kidney disease, stage 3a, R73.01 - Impaired fasting glucose Medications: New mecobalamin (vitamin B12) (B12 Active) 1,000 mcg PO DAILY 90 tabs 3RF Discontinued meloxicam Discontinued Reason: Doctor's Order 15 mg PO DAILY 30 tabs 0RF M25.561 - Pain in right knee Patient Instructions: RTO in 4-6 months for CPE, sooner as needed. At 1717 pt was informed via portal: Hi Your labs are looking better for the low blood count. Continue to take your multivitamin with iron daily. Your b12 however is lower. I have sent in a new medication to take daily. Your kidney labs are stable. Be sure to continue to adequately hydrate. You continue to show an elevated blood sugar consistent with pre-diabetes. Please monitor your sugar & carbohydrate intake. Try to include exercise. I have placed fasting lab orders to get done 1 week before the next visit with me. See you then, or sooner if needed. Aylin Coding Level of Care Code Est Pt Level 4 (73132) Diagnoses Stage 3a chronic kidney disease N18.31 Chronic kidney disease stage 3 subtype: stage 3a (GFR 45-59) IFG (impaired fasting glucose) R73. Onychomycosis B35.1 Vitamin D deficiency E55.9 Anemia, unspecified type D64.9 Anemia type: unspecified type
[2024-02-07 10:57] VITALS: BP 118/70; PULSE 73; RESP 14; TEMP 36.5; O2SAT 98; BMI 32.4
== END 2024-02-07 11:15 | disposition home or self-care (01) ==
PROVIDERS: PCP Nurse Practitioner Family; Visit Provider Nurse Practitioner Family
DX: N18.31 Chronic kidney disease, stage 3a (principal); R73.01 Impaired fasting glucose; B35.1 Tinea unguium; E55.9 Vitamin D deficiency, unspecified; D64.9 Anemia, unspecified
CPT/HCPCS: 99214

== ENCOUNTER 2024-02-07 11:19 | Outpatient (REF) | payer OTHER, SELFPAY ==
[2024-02-07 14:59] LABS: Hematocrit 39.9 % (42.0-52.0); Mean Corpuscular HGB Conc 35.1 g/dl (31.0-36.0); Mean Corpuscular Hemoglobin 31.2 pg (27.0-33.0); Mean Corpuscular Volume 88.9 fL (80.0-98.0); Mean Platelet Volume 11.9 fL (9.4-12.4); Platelet Count 215 X10*3/uL (160-400); Red Blood Count 4.49 X10*6/uL (4.60-5.80); Red Cell Distribution Width 11.9 % (11.0-16.0); White Blood Count 5.5 X10*3/uL (4.8-10.8)
[2024-02-07 15:24] LABS: Alanine Aminotransferase 34 U/L (0-40); Albumin Level 4.3 g/dL (3.5-5.0); Alkaline Phosphatase 63 U/L (39-117); Anion Gap 9 (12-20); Aspartate Amino Transferase 25 U/L (5-37); Bilirubin Total 0.6 mg/dL (0.0-1.0); Blood Urea Nitrogen 7 mg/dL (9-16); Calcium 9.6 mg/dL (8.4-10.2); Carbon Dioxide 30 mmol/L (22-29); Chloride 105 mmol/L (96-108); Estimated Glomerular Filt Rate 54; Glucose Random 179 mg/dL (60-115); Iron 122 mcg/dL (45-160); Percent Iron Saturation 38 % (15-50); Potassium 4.3 mmol/L (3.3-5.1); Sodium 140 mmol/L (135-145); Total Iron Binding Capacity 320 mcg/dL (228-428); Total Protein 7.4 g/dL (6.5-8.0); Unsaturated Iron Binding 198 ug/dL
[2024-02-07 15:31] LABS: Estimated Average Glucose 126 mg/dL
[2024-02-07 15:57] LABS: Folate 7.4 ng/mL (> or = 4.0); Vitamin B12 187 pg/mL (200-900)
== END 2024-02-07 11:20 | disposition home or self-care (01) ==
LOC: HO.WFDLDS 11:19
PROVIDERS: Visit Provider Nurse Practitioner Family
DX: D64.9 Anemia, unspecified (principal); R73.01 Impaired fasting glucose; N18.30 Chronic kidney disease, stage 3 unspecified; N18.31 Chronic kidney disease, stage 3a
CPT/HCPCS: 36415; 80053; 82607; 82746; 83036; 83540; 85027

== ENCOUNTER 2024-03-07 11:06 | Outpatient (AMB) | payer OTHER, SELFPAY ==
--- NOTE | 2024-03-07 11:11 | MHC.OFFVIS ---
Vital Signs 03/07/24 11:13 Height 5 ft 11 in Weight 230 lb BMI 32.1 BP 108/78 Blood Pressure Location Rt brachial Position Sitting Pulse 58 Pulse Source Pulse Oximeter Pulse Oximetry (%) 95 Oxygen Delivery Method Room Air Intake Visit Reasons: INP- Tremors L hand shakes a lot. -CONF Intake Note: patient has left side hand tremors. not sleeping at all,feels like he hasn't rested when he wakes up following day. Allergies mushroom [MUSHROOM] Allergy (Intermediate, Verified 03/07/24 11:16) SHORTNESS OF BREATH Seasonal Allergies Allergy (Intermediate, Verified 03/07/24 11:16) Unknown Medication List - Last Reconciled 03/07/24 by Ruby Rodriguez, KAREN aripiprazole 5 mg PO aripiprazole ER mg IM aripiprazole ER (Abilify Maintena) 300 mg IM Q28D bupropion HCl 75 mg PO DAILY cetirizine 10 mg PO DAILY fluticasone propionate 50 mcg/actuation 2 sprays intranasal DAILY 1 month mecobalamin (vitamin B12) (B12 Active) 1,000 mcg PO DAILY melatonin 3 mg PO BEDTIME multivitamin with minerals (Daily Multivitamin-Minerals tablet) 1 tab PO DAILY sodium chloride 0.65% 2 sprays intranasal Q3H HPI Comments Details: 43- yr-old male presents for new pt evaluation of movement disorder, specifically: LUE tremor. Pt is accompanied by his friend, Jessi. Pt is concerned about a LUE rest tremor, which he started to notice 6 months ago and his fmaily/frineds noticed 12 months ago. States tremor happens anytime. Only stops when he holds something heavy. Tremor is not increase with action- such as pouring. Pt is concerned that his abilify use may have caused the tremor. PMH significant for:schizoaffective disorder, depression, generalized anxiety disorder, GERD / hiatal hernia s/p Rey funduplication (07/2015, Dr. Pena), seasonal allergies, vitamin D deficiency, adenovirus (+) PCR and CT scan c.w. a large left-side retro & parapharyngeal abscess with extension into posterior mediastinum / ELDA / sCreat peaked = 1.6 s/p emergency tracheostomy & I&D of abscess (01/02/2023, Dr. Ramirez) s/p tracheostomy removal (December [address] [facility]). His mother has asymmetric tremor- worse with activity/pouring. His maternal grandfather also had tremor. Pt is right handed. ADL status: Ind. Currently lives with his mother. IADL status: Cannot manage his own finances- d/t compulsivity, difficulty prioritizing finances. Fine-motor skills: No issues Micrographia: Denies changes in writing Vision changes: Denies. But rarely blinks- per his friend. May stare off and not blink for 10 minutes. Denies h/o seizure. Hypophonia: Denies Hyposmia: Denies Dysphagia: Denies Drooling: Denies Orthostatic lightheadedness: Sometimes- briefly GI: Denies constipation : Denies Musculoskeletal: Denies neck or back pain. Slowness: Denies Freezing episodes: Denies Tremor: none other Involuntary movements: Denies Dyskinesia: Denies Stiffness: Denies Paresthesias: Denies Gait changes: Denies Sleep difficulty: Poor sleep. Uses Melatonin- but tries not to take it as he is worried that he will take too many. Has been told he snores. Some fragmented sleep, unrefreshing sleep, daytime sleepiness, restless sleep. Parasomnias: Has been told he talks in his sleep. Has woken up believing his vivid dream is real. Memory impairment: States memory is not great. Graduated high school- states was not a good student- had an IEP when younger and graduated from it, but struggled more in high school and this is when he starting showing signs of mental health d/o. Hallucinations: Not since he has been on Abilify. Has had hallucinations since about age 22- auditory, visual, and was talking to them. Usual exercise: Walks. Does candlepin bowling. He currently under care of psychiatry and psychology through [facility]. History of concussion/head injury? He had 2 mild concussions w/ scalp laceration x's 2- high school- hit his head on a ceiling; struck top of his head on a piece of metal when he stood up too fast. History of neuroleptic (metoclopramide/antipsychotics) use? Zyprexa when younger- x's a few months. Abilify x's 2 yrs- currently taking. History of psychiatric hospitalizations? Denies History of occupational chemical exposures? Denies Family history of movement disorders? Mother and maternal grandfather. Family history of mood disorder or suicide? Denies [facility] Medical History (Updated 03/07/24 @ 17:18 by KAREN Valentino) Benign essential tremor Left knee pain History of retropharyngeal abscess Tremor of left hand Right anterior knee pain Surgical History S/P emergency tracheotomy for assistance in breathing History of surgery Labral tear of right hip joint Family History Father Colon cancer Alcoholism Mother Arthritis Daughter GERD (gastroesophageal reflux disease) Family/Other FH: mental illness Schizo affective schizophrenia Brother In good health Social History Household Members: Other Household Members Other:: [employer] Both parents involved: No Caregiver staying overnight: No [facility]: [facility] Are you a primary transitional care manager to a significant other at home: No Do you presently have visiting nurse or other home services: No 75 years or older and lives alone: No Alcohol intake: never Patient Tobacco Use Status: Never used Tobacco e-Cigarette/Vaping Use: Never Used Second Hand Smoke Exposure: No service: No Current occupational status: employed Current occupation: [employer] Current occupational exposures/hazards: No Sexual orientation: Straight/Heterosexual Gender identity: Male Cognitive needs: No Hearing needs: No Vision needs: Yes Review of Systems Const All systems reviewed & are unremarkable except as noted in HPI and below Physical Exam Vital Signs: Last Vital Signs Pulse 58 03/07/24 11:13 BP 108/78 03/07/24 11:13 Pulse Ox 95 03/07/24 11:13 Oxygen Delivery Method Room Air 03/07/24 11:13 BMI result Body Mass Index 32.1 Const General: cooperative and no acute distress Resp Effort & Inspection: normal respiratory effort and able to speak in complete sentences Cardio Rate: regular rate Rhythm: regular rhythm Neuro Other: General: A&O x's 3. Expression: Decreased blink. Expression intact. Voice: Intact Tremor: LUE rest and postural tremor on pronator drift exam. Archimede's spiral- Bilaterally legible spirals w/o tremor. BUE MARIAH: Slightly decreased fluidity on right. Tone: BUE L > R tone Dyskinesia: None FFM: Intact Finger-Nose: BUE Intact Foot taps: Mildly decreased on the right Gait: Able to stand w/o using arms for support, no LUE arm swing w/ mild tremor, decreased RUE arm swing, good stride, slightly unsteady during turn (pt did not appreciate this himself). Psych: Pleasant affect. MS: 5/5 throughout. Deep tendon reflexes (DTR's): Right triceps reflex intensity grade: 2+, Left triceps reflex intensity grade: 2+, Rt Biceps (C5, C6): 2+, Left biceps reflex intensity grade: 2+, Right brachioradialis reflex intensity grade: 2+, Left brachioradialis reflex intensity grade: 2+, Right patellar reflex intensity grade: 2+ and Left patellar reflex intensity grade: 2+ Psych Appearance: grossly normal Mental Status: mental status grossly normal Speech and movement: Clear speech present Affect: normal affect Attitude: cooperative Thought process: Normal thought process present Assessment & Plan Assessment & Plan (1) Movement disorder: Comment: LUE rest/postural tremor, BUE L > R tone, decreased RLE foot taps, asymmetric decreased arm swing, decreased blink. 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 unknown CV insult. Pt has family h/o c/w ET, however pt's tremor s/s are not c/w a typical ET presentation. Code(s): G25.9 - Extrapyramidal and movement disorder, unspecified Category: Medical (2) Tremor: Code(s): R25.1 - Tremor, unspecified Category: Medical (3) Excessive daytime sleepiness: Code(s): G47.19 - Other hypersomnia Category: Medical (4) Sleep difficulties: Code(s): G47.9 - Sleep disorder, unspecified Category: Medical (5) Snoring: Code(s): R06.83 - Snoring Category: Medical Plan Reviewed w/ pt that we will conduct further investigations to determine etiology of tremor and movement d/o s/s. However, discussed that atypical neuroleptic medications can cause abnomral movement s/s- including Parkinsomism and Tardive dyskinesia, and these effects may be permanent even once the neuroleptic is discontinued. However, for some patients, these risks must be weighed against the benefits of these medications- and thus, for some patients, they do require prolonged or life-long tx w/ atypical neuroleptic tx's. In this pt's case, I would not recommend reducing his current Abilify dose as he has expressed that he is at high risk for mood decompensation w/o taking Abilify. He should continue to f/u w/ psychiatry and therapist. Pt is advised to undergo: Brain MRI w/o HST to assess for sleep apnea Upon review of above, consider DaTscan. Case discussed with Dr Elva Mays. Follow-up upon review of above and in 6 months or sooner prn. Coding Level of Care Code New Pt Level 4 (06711) Diagnoses Movement disorder G25.9 Tremor R25.1 Excessive daytime sleepiness G47.19 Sleep difficulties G47.9 Snoring R06.83 [place] Sleepiness Scale Questions Sitting and reading: moderate chance of dozing Watching TV: moderate chance of dozing Sitting inactive in a theater, movie etc.: moderate chance of dozing As a passenger in a car for an hour without break: moderate chance of dozing Lying down in the afternoon when circumstances permit: moderate chance of dozing Sitting and talking to someone: would never doze Sitting quietly after lunch without alcohol: moderate chance of dozing In a car, while stopped for a few minutes in the traffic: would never doze ESS < 10: normal, ESS > 12: pathologic: 12
[2024-03-07 11:13] VITALS: BP 108/78; PULSE 58; O2SAT 95; BMI 32.1
== END 2024-03-07 12:33 | disposition home or self-care (01) ==
PROVIDERS: Absent Provider Nurse Practitioner Family; PCP Nurse Practitioner Family; Visit Provider Nurse Practitioner Family
DX: G25.9 Extrapyramidal and movement disorder, unspecified (principal); G47.19 Other hypersomnia; G47.9 Sleep disorder, unspecified; R06.83 Snoring
CPT/HCPCS: 99204

== ENCOUNTER → 2024-03-07 11:06 | Outpatient (BNVA) | payer OTHER, SELFPAY | PROVIDERS: Absent Provider Nurse Practitioner Family; PCP Nurse Practitioner Family; Visit Provider Nurse Practitioner Family | DX: G25.9 Extrapyramidal and movement disorder, unspecified (principal); G47.19 Other hypersomnia; G47.9 Sleep disorder, unspecified; R06.83 Snoring | CPT/HCPCS: 99202 ==

== ENCOUNTER 2024-03-30 22:33 | Emergency (ER) | payer OTHER, SELFPAY ==
--- NOTE | ~2024-03-30 | XR_ITS ---
EXAMINATION: XR CHEST CLINICAL INFORMATION: Cough. COMPARISON: 02/02/2019. TECHNIQUE: Frontal view of the chest was obtained. FINDINGS: No significant abnormality is noted involving the heart, lungs, mediastinum, bony thorax or soft tissues. XR/XR chest 1V IMPRESSION: Unremarkable examination.
[2024-03-30 22:54] VITALS: BP 126/80; PULSE 97; RESP 18; TEMP 36.6; O2SAT 94; BMI 31.4
[2024-03-30 23:49] LABS: Influenza A PCR NEGATIVE (Negative); Influenza B PCR NEGATIVE (Negative); Resp Syncy Virus RNA Qual PCR NEGATIVE (Negative); SARS COV2 PCR INHOUSE NEGATIVE (Negative)
[2024-03-31 00:45] VITALS: BP 113/68; PULSE 60; RESP 20; TEMP 36.5; O2SAT 96
--- NOTE | 2024-03-31 00:58 | ED_ITS ---
HPI - General Adult General Chief complaint: General Medical Stated complaint: cough x2 wks left foot ? infected Time Seen by Provider: 03/31/24 00:52 Source: patient Mode of arrival: ambulatory Limitations: no limitations History of Present Illness ED Provider: Dr. Ivon Mckee HPI narrative: Patient comes to the emergency room complaining of 2 weeks of dry cough and a few days of a blister on top of his left foot. Patient states that he has not had any fever or chills. Patient has not tried any [id number] medications for cough. Patient denies any chest pain or shortness of breath. Related Data Home Medications ?Medication ?Instructions ?Recorded ?Confirmed sodium chloride 0.65 % nasal spray 2 spray intranasal Q3H 08/13/20 03/07/24 aerosol aripiprazole 300 mg suspension, mg IM 10/22/23 02/07/24 extended rel. intramuscular syringe aripiprazole 5 mg tablet 5 mg PO 10/22/23 02/07/24 bupropion HCl 75 mg tablet 75 mg PO DAILY 10/22/23 03/07/24 melatonin 3 mg tablet 3 mg PO BEDTIME 10/22/23 03/07/24 aripiprazole 300 mg suspension, 300 mg IM Q28D 03/07/24 03/07/24 extended rel. intramuscular syringe (Cesar Kwok) Previous Rx's ?Medication ?Instructions ?Recorded cetirizine 10 mg tablet 10 mg PO DAILY #28 tabs 02/08/21 fluticasone propionate 50 2 spray intranasal DAILY 1 month 06/13/21 mcg/actuation nasal #16 grams spray,suspension multivitamin with minerals (Daily 1 tab PO DAILY #90 tabs 11/12/23 Multivitamin-Minerals tablet) mecobalamin (vitamin B12) 1,000 1,000 mcg PO DAILY #90 tabs 02/14/24 mcg chewable tablet (B12 Active) bacitracin zinc 500 unit/gram 1 appl topical QID #14.2 grams 03/31/24 topical ointment benzonatate 100 mg capsule 100 mg PO TID PRN cough #15 caps 03/31/24 Allergies Allergy/AdvReac Type Severity Reaction Status Date / Time mushroom [MUSHROOM] Allergy Intermediate SHORTNESS Verified 03/30/24 22:55 OF BREATH Seasonal Allergies Allergy Intermediate Unknown Verified 03/30/24 22:55 Review of Systems Review of Systems: Constitutional : No Weight loss, No Fever, No Chills, No Night Sweats, No Fatigue, No Malaise ENT/Mouth : No Hearing loss, No Ear Pain, No Nasal Congestion, No Sinus Pain, No Hoarseness, No sore throat, No Rhinorrhea, No Swallowing Difficulty Eyes: No Eye Pain, No Swelling, No Redness, No Foreign Body, No Discharge, No Vision Changes Cardiovascular : No Chest Pain, No SOB, No Dyspnea on Exertion, No Orthopnea, No Edema, No Palpitations Respiratory : Complaining of dry Cough, No Sputum, No Wheezing, No Smoke Exposure, No Dyspnea Gastrointestinal : No Nausea, No Vomiting, No Diarrhea, No Constipation, No abdominal Pain, No Hematochezia, No Melena Genitourinary : no irregular bleeding, No Dysuria, No Urinary Frequency, No Hematuria, No Urinary Incontinence, No Urgency, No Flank Pain, No Urinary Flow Changes, No Hesitancy Musculoskeletal : No joint pain, No Myalgias, No Joint Swelling Skin : Complaining of a blister to the dorsum of the left foot Neuro : No Weakness, No Numbness, No Paresthesias, No Loss of Consciousness, No Dizziness, No Headache Psych : No Anxiety/Panic, No Depression, No SI/HI/AH/VH, No Social Issues, Heme/Lymph: No Bruising, No Bleeding,No Lymphadenopathy Endocrine : No Polyuria, No Polydipsia, No Temperature Intolerance PMFSH Past Medical History Medical History Benign essential tremor Left knee pain History of retropharyngeal abscess Tremor of left hand Right anterior knee pain Surgical History S/P emergency tracheotomy for assistance in breathing History of surgery Labral tear of right hip joint Family History Family History Father Colon cancer Alcoholism Mother Arthritis Daughter GERD (gastroesophageal reflux disease) Family/Other FH: mental illness Schizo affective schizophrenia Brother In good health Social History Social History Household Members: Other Household Members Other:: [facility] Housing: Other ([facility]) Are you a primary hiv/aids care nurse to a significant other at home: No Do you presently have visiting nurse or other home services: No Alcohol intake: never Patient Tobacco Use Status: Never used Tobacco Smoked in Last 30 Days: No e-Cigarette/Vaping Use: Never Used Second Hand Smoke Exposure: No Use of substances other than those prescribed or required for medical reasons: No Advance Directives: No Advance Directives Information Provided: No service: No Current occupational status: employed 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 Oriented X3. No acute distress. Eyes: Pupils equal, round and reactive to light. ENT: Pharynx normal. Neck: Normal inspection. Neck supple. No lymph nodes noted. No crepitus CVS: Normal heart rate and rhythm. Pulses normal. Normal S1 and S2 Respiratory: No respiratory distress. Breath sounds normal. No Wheezing. No rales Abdomen: Soft and nontender. No rigidity. No distention. Skin: There is 2 cm x 2 cm popped blister on the dorsum of the left foot, skin looks clean, no signs of cellulitis Extremities: No lower extremity edema. No Lacerations. No Rash Neuro: Oriented X 3. No motor deficit. No sensory deficit. Moving all extremities. No slurred speech. CN 2 through 12 grossly intact Psych: calm, cooperative, normal affect Medical Decision Making Medical Decision Making MDM Narrative: -my interpretation of labs: Serology negative for influenza RSV and COVID. -patient's lungs are completely clear, oxygen saturation 96% on room air, patient does have occasional dry cough. -my interpretation of chest x-ray: No obvious infiltrates. -discussed with the patient that he likely has viral bronchitis, the cough may last up to 6-8 weeks -patient is lesion in the foot is likely secondary to a blister from wearing tight shoes. Differential Diagnosis Differential Diagnoses: The differential diagnosis associated with the presentation includes (COVID, influenza, RSV, viral illness, bronchitis) Lab Data MDM Lab Attestation statement: I reviewed the patient's lab results. Labs: Lab Results 03/30/24 Range/Units 23:07 Influenza Type A (PCR) NEGATIVE (Negative) Influenza Type B (PCR) NEGATIVE (Negative) RSV RNA Qual (PCR) NEGATIVE (Negative) SARS-CoV-2 RNA (RT-PCR) NEGATIVE (Negative) Discharge Plan Discharge Clinical Impression: Viral bronchitis, Blister Patient Disposition: Home, Self-Care Instructions: Acute Bronchitis (ED) Additional Instructions: Please follow-up with your primary care physician tomorrow. If you have any worsening or new symptoms, please return to the emergency room or call 911 Prescriptions: New benzonatate 100 mg capsule 100 mg PO TID PRN (Reason: cough) Qty: 15 0RF bacitracin zinc 500 unit/gram ointment 1 appl topical QID Qty: 14.2 0RF No Action cetirizine 10 mg tablet 10 mg PO DAILY Qty: 28 3RF fluticasone propionate 50 mcg/actuation spray,suspension 2 spray intranasal DAILY 30 Days Qty: 16 5RF Rx Instructions: administer into each nostril mecobalamin (vitamin B12) [B12 Active] 1,000 mcg tablet,chewable 1,000 mcg PO DAILY Qty: 90 3RF sodium chloride 0.65 % aerosol,spray 2 spray intranasal Q3H aripiprazole 300 mg suspension,extended rel syring IM aripiprazole 5 mg tablet 5 mg PO bupropion HCl 75 mg tablet 75 mg PO DAILY Patient Comments: Patient to call to confirm dose Rx Instructions: administer 6 hours apart melatonin 3 mg tablet 3 mg PO BEDTIME Daily Multivitamin-Minerals Tablet 1 tab PO DAILY Qty: 90 3RF Rx Instructions: administer with a meal Abilify Maintena 300 mg suspension,extended rel syring 300 mg IM Q28D Print Language: Vietnamese
[2024-03-31 01:08] VITALS: BP 113/68; PULSE 60; RESP 20; TEMP 36.5; O2SAT 96
== END 2024-03-31 01:10 | disposition home or self-care (01) ==
PROVIDERS: Emergency Provider Emergency Medicine; PCP Nurse Practitioner Family
DX: J20.8 Acute bronchitis due to other specified organisms (principal); S90.822A Blister (nonthermal), left foot, initial encounter; X58.XXXA Exposure to other specified factors, initial encounter; Z03.818 Encounter for observation for suspected exposure to other biological agents ruled out; R05.9 Cough, unspecified; Y93.9 Activity, unspecified; Y92.89 Other specified places as the place of occurrence of the external cause; Y99.9 Unspecified external cause status
CPT/HCPCS: 0241U; 71045; 99283; 99284

== ENCOUNTER 2024-04-03 22:19 | Emergency (ER) | payer OTHER, SELFPAY ==
--- NOTE | ~2024-04-03 | XR_ITS ---
EXAMINATION: XR CHEST 2 VIEWS CLINICAL INFORMATION: Dyspnea. COMPARISON: Prior chest radiographs, most recently 03/30/2024. TECHNIQUE: Frontal and lateral views of the chest were obtained. FINDINGS: The heart, great vessels, pulmonary vasculature and mediastinum are normal. The lungs show no focal infiltrate, effusion or pneumothorax. There is no acute osseous abnormality. There is multi-level thoracic spondylosis. XR/XR chest 2V IMPRESSION: No active cardiopulmonary disease.
[2024-04-03 22:44] VITALS: BP 135/71; PULSE 101; RESP 19; TEMP 36.7; O2SAT 92; BMI 31.1
[2024-04-03 23:59] LABS: Influenza A PCR NEGATIVE (Negative); Influenza B PCR NEGATIVE (Negative); Resp Syncy Virus RNA Qual PCR NEGATIVE (Negative); SARS COV2 PCR INHOUSE NEGATIVE (Negative)
[2024-04-04 00:55] VITALS: BP 117/72; PULSE 86; RESP 16; TEMP 36.8; O2SAT 92
--- NOTE | 2024-04-04 07:22 | ED.GENADULT ---
HPI - General Adult General Chief complaint: Upper Respiratory Symptoms Stated complaint: seen here 03/31 cough isnt getting better Time Seen by Provider: 04/04/24 07:21 Source: patient Mode of arrival: ambulatory Limitations: no limitations History of Present Illness ED Provider: joellen PEREZ narrative: Patient is a 43-year-old male presenting to the emergency department with over 2 weeks of nonproductive cough and shortness of breath. He was seen here on 03/31 and prescribed benzonatate which he states he has been taking as prescribed without improvement. Denies chest pain or palpitations. Reports feeling lightheaded at work yesterday and states temp was 99?. Denies any abdominal pain, nausea, vomiting, diarrhea. MD complaint: cough Onset (ago): week(s) Associated symptoms: fever/chills Treatments prior to arrival: other Related Data Home Medications ?Medication ?Instructions ?Recorded ?Confirmed sodium chloride 0.65 % nasal spray 2 spray intranasal Q3H 08/13/20 03/07/24 aerosol aripiprazole 300 mg suspension, mg IM 10/22/23 02/07/24 extended rel. intramuscular syringe aripiprazole 5 mg tablet 5 mg PO 10/22/23 02/07/24 bupropion HCl 75 mg tablet 75 mg PO DAILY 10/22/23 03/07/24 melatonin 3 mg tablet 3 mg PO BEDTIME 10/22/23 03/07/24 aripiprazole 300 mg suspension, 300 mg IM Q28D 03/07/24 03/07/24 extended rel. intramuscular syringe (Cesar Kwok) Previous Rx's ?Medication ?Instructions ?Recorded cetirizine 10 mg tablet 10 mg PO DAILY #28 tabs 02/08/21 fluticasone propionate 50 2 spray intranasal DAILY 1 month 06/13/21 mcg/actuation nasal #16 grams spray,suspension multivitamin with minerals (Daily 1 tab PO DAILY #90 tabs 11/12/23 Multivitamin-Minerals tablet) mecobalamin (vitamin B12) 1,000 1,000 mcg PO DAILY #90 tabs 02/14/24 mcg chewable tablet (B12 Active) bacitracin zinc 500 unit/gram 1 appl topical QID #14.2 grams 03/31/24 topical ointment benzonatate 100 mg capsule 100 mg PO TID PRN cough #15 caps 03/31/24 albuterol sulfate 90 mcg/actuation 2 puff inhalation Q4-6H PRN 04/04/24 aerosol inhaler shortness of breath or wheezing #6.7 grams azithromycin 250 mg tablet See Rx Instructions PO .COMPLEX #6 04/04/24 tabs prednisone 20 mg tablet 20 mg PO DAILY #5 tabs 04/04/24 Allergies Allergy/AdvReac Type Severity Reaction Status Date / Time mushroom [MUSHROOM] Allergy Intermediate SHORTNESS Verified 04/03/24 22:48 OF BREATH Seasonal Allergies Allergy Intermediate Unknown Verified 04/03/24 22:48 Review of Systems Review of Systems: As per MDM Yes all other systems are reviewed and are negative Constitutional: Constitutional: Reports as per HPI [facility] Past Medical History Medical History Benign essential tremor Left knee pain History of retropharyngeal abscess Tremor of left hand Right anterior knee pain Surgical History S/P emergency tracheotomy for assistance in breathing History of surgery Labral tear of right hip joint Family History Family History Father Colon cancer Alcoholism Mother Arthritis Daughter GERD (gastroesophageal reflux disease) Family/Other FH: mental illness Schizo affective schizophrenia Brother In good health Social History Social History Household Members: Other Household Members Other:: [facility] Housing: Other ([facility]) Are you a primary healthcare liaison to a significant other at home: No Do you presently have visiting nurse or other home services: No Alcohol intake: never Patient Tobacco Use Status: Never used Tobacco e-Cigarette/Vaping Use: Never Used Second Hand Smoke Exposure: No Advance Directives: No Advance Directives Information Provided: Yes Do you have a plan to hurt others: No Plan service: No Current occupational status: employed 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 Blood pressure normal. Heart rate normal. Respiratory rate normal. Temperature normal. Oxygen saturation normal. Const General: cooperative, healthy appearing and no acute distress Orientation/consciousness: oriented to person, oriented to place, oriented to time and patient oriented x3 Limitations: no limitations HENMT Head: Yes normocephalic and Yes atraumatic Ears: external ears normal General nose exam: Normal external nose present Face and sinus: Yes face symmetric Mouth: oropharynx normal and moist mucous membranes Throat: Yes uvula midline Eyes Pupils: Equal, round and reactive pupils present Neck Neck: Yes normal visual inspection and Yes supple Resp Effort & Inspection: normal respiratory effort and able to speak in complete sentences Auscultation: clear to auscultation bilaterally and wheezes scattered wheezes Cardio Rate: regular rate Rhythm: regular rhythm Heart sounds: S1 normal heart sound present and S2 normal heart sound present GI Palpation (GI): Soft to palpation and nontender Auscultation: normoactive bowel sounds General: Yes no CVA tenderness Back/Spine/Pelvis Back: no CVA tenderness Skin General skin exam: elasticity normal and turgor normal Neuro General: oriented to person, oriented to place, oriented to time, patient oriented x3, moves all extremities, no focal motor deficits and CN's II-XI intact bilaterally Cranial nerves: Yes Equal, round and reactive pupils present Cognition (Neuro): normal cognition Extrem General: Yes full ROM, Yes no pedal edema and Yes no calf tenderness Psych Mental Status: mental status grossly normal Affect: normal affect Thought process: Normal thought process present Medical Decision Making Medical Decision Making MDM Narrative: Patient is a 43-year-old male presenting to the emergency department with over 2 weeks of nonproductive cough and shortness of breath. On exam patient is awake, A+Ox3, VS WNL, afebrile, normal neurological exam without focal deficits, physical exam findings as above. Given reported symptoms and physical exam findings, initial differential includes bronchitis, pneumonia, viral illness. Viral swabs negative. X-ray chest notable for no evidence of pneumonia. My interpretation is in agreement with the radiologist's interpretation. Given ongoing nature symptoms, will treat for bronchitis at this time with azithromycin, prednisone, albuterol inhaler. Follow-up with PCP. Return precautions discussed. Patient verbalized understanding of and agreement plan. Differential Diagnosis Differential Diagnoses: The differential diagnosis associated with the presentation includes As Per [facility]. Lab Data [facility] Lab Attestation statement: I reviewed the patient's lab results. As per [facility] Labs: Lab Results 04/03/24 Range/Units 23:12 Influenza Type A (PCR) NEGATIVE (Negative) Influenza Type B (PCR) NEGATIVE (Negative) RSV RNA Qual (PCR) NEGATIVE (Negative) SARS-CoV-2 RNA (RT-PCR) NEGATIVE (Negative) Independent Interpretation I performed an independent interpretation of an: Plain X-Ray Interpretation: No evidence of pneumonia on chest x-ray Radiology Impression Discussion of test interpretation with radiology: I have reviewed the radiologist's reading. Radiologist Impression: XR/XR chest 2V IMPRESSION: No active cardiopulmonary disease. External Record Review External record reviewed: Inpatient record, Office record and Outpatient record Prescription Management I considered prescription management with: Antibiotic and Other Discharge Plan Discharge Clinical Impression: Bronchitis Patient Disposition: Home, Self-Care Instructions: How to Use a Metered-Dose Inhaler (ED), Acute Bronchitis (ED) Additional Instructions: You were evaluated in the emergency department today for cough and shortness of breath. You are being treated for bronchitis with an antibiotic, please complete the full course as prescribed. You are also being prescribed a short course of steroids to decrease inflammation. You are being prescribed an inhaler which you can use every 4-6 hours as needed for shortness of breath. Please follow-up with your primary care provider this week. Return to the emergency department if you develop worsening shortness of breath, difficulty breathing, chest pain, fever not improved with Tylenol or ibuprofen, or any other concerning symptoms. Prescriptions: New azithromycin 250 mg tablet See Rx Instructions .ROUTE .COMPLEX Qty: 6 0RF Rx Instructions: For 250 mg dose pack: take 500 mg today (day 1), then 250 mg for 4 days (days 2-5) prednisone 20 mg tablet 20 mg PO DAILY Qty: 5 0RF albuterol sulfate 90 mcg/actuation HFA aerosol inhaler 2 puff inhalation Q4-6H PRN (Reason: shortness of breath or wheezing) Qty: 6.7 0RF No Action cetirizine 10 mg tablet 10 mg PO DAILY Qty: 28 3RF fluticasone propionate 50 mcg/actuation spray,suspension 2 spray intranasal DAILY 30 Days Qty: 16 5RF Rx Instructions: administer into each nostril mecobalamin (vitamin B12) [B12 Active] 1,000 mcg tablet,chewable 1,000 mcg PO DAILY Qty: 90 3RF benzonatate 100 mg capsule 100 mg PO TID PRN (Reason: cough) Qty: 15 0RF bacitracin zinc 500 unit/gram ointment 1 appl topical QID Qty: 14.2 0RF sodium chloride 0.65 % aerosol,spray 2 spray intranasal Q3H aripiprazole 300 mg suspension,extended rel syring IM aripiprazole 5 mg tablet 5 mg PO bupropion HCl 75 mg tablet 75 mg PO DAILY Patient Comments: Patient to call to confirm dose Rx Instructions: administer 6 hours apart melatonin 3 mg tablet 3 mg PO BEDTIME Daily Multivitamin-Minerals Tablet 1 tab PO DAILY Qty: 90 3RF Rx Instructions: administer with a meal Abilify Maintena 300 mg suspension,extended rel syring 300 mg IM Q28D Print Language: Kyrgyz
[2024-04-04 08:06] VITALS: BP 109/50; PULSE 71; RESP 16; TEMP 36.6; O2SAT 92
[2024-04-04 08:15] VITALS: BP 109/50; PULSE 71; RESP 16; TEMP 36.6; O2SAT 92
== END 2024-04-04 08:16 | disposition home or self-care (01) ==
PROVIDERS: Emergency Provider Emergency Medicine
DX: J40 Bronchitis, not specified as acute or chronic (principal); R05.9 Cough, unspecified; R50.9 Fever, unspecified; Z03.818 Encounter for observation for suspected exposure to other biological agents ruled out
CPT/HCPCS: 0241U; 71046; 99283

== ENCOUNTER 2024-05-02 13:24 | Outpatient (REF) | payer OTHER, SELFPAY ==
--- NOTE | ~2024-05-02 | MR_ITS ---
EXAMINATION: MR BRAIN WITHOUT CONTRAST CLINICAL INFORMATION: Tremor. COMPARISON: CT head 12/05/2013. TECHNIQUE: MRI of the brain was obtained using routine sequences without contrast. FINDINGS: There are a few scattered nonspecific foci of T2 FLAIR signal hyperintensity within the periventricular white matter. No acute territorial infarct. No pathological magnetic susceptibility artifact. Intracranial vascular flow voids are maintained. There is no intracranial mass effect or midline shift. No abnormal extra-axial collection. Lateral and third ventricles are normal. No hydrocephalus. Midline structures including the cervicomedullary junction are normal. No acute bone marrow signal changes. There is a right mastoid effusion. Mild paranasal sinus disease with partial opacification of the posterior ethmoid air cells. Globes and orbits are grossly symmetric. MR/MR head/brain wo con IMPRESSION: There are a few scattered nonspecific signal changes involving the supratentorial white matter. Otherwise unremarkable examination in that there is no discrete anatomic finding to provide an explanation for this patient's tremor. No evidence of acute territorial infarct or hemorrhage. Electronically signed by: Anderson Pham MD 05/17/2024 02:42 PM EDT
== END 2024-05-02 13:25 | disposition home or self-care (01) ==
LOC: HO.MRI 13:24
PROVIDERS: Visit Provider Nurse Practitioner Family
DX: G25.9 Extrapyramidal and movement disorder, unspecified (principal)
CPT/HCPCS: 70551

== ENCOUNTER → 2024-05-08 15:06 | Outpatient (REF) | payer OTHER, SELFPAY | LOC: HO.SL 15:06 | PROVIDERS: Visit Provider Nurse Practitioner Family | DX: G47.19 Other hypersomnia (principal); G47.9 Sleep disorder, unspecified; R06.83 Snoring | CPT/HCPCS: 95806 ==

== ENCOUNTER → 2024-05-08 15:15 | Outpatient (BNV) | payer OTHER, SELFPAY | PROVIDERS: Visit Provider Psychiatry & Neurology Neurology | DX: R06.83 Snoring (principal); G47.19 Other hypersomnia | CPT/HCPCS: 95806 ==

== ENCOUNTER 2024-06-12 07:54 | Outpatient (AMB) | payer OTHER, SELFPAY ==
--- NOTE | 2024-06-12 07:56 | MHC.PC.OV ---
Vital Signs 06/12/24 08:02 Height 5 ft 11 in Weight 228 lb 6 oz BMI 31.8 BP 102/68 Blood Pressure Location Lt brachial Position Sitting Respiration 14 Pulse 66 Pulse Source Pulse Oximeter Pulse Oximetry (%) 96 Oxygen Delivery Method Room Air Intake Visit Reasons: 4-6 months CPE Intake Note: annual physical Allergies mushroom [MUSHROOM] Allergy (Intermediate, Verified 06/12/24 08:12) SHORTNESS OF BREATH Seasonal Allergies Allergy (Intermediate, Verified 06/12/24 08:12) Unknown Medication List - Last Reconciled 06/12/24 by Aylin Pizarro, COMMUNITY CASE MANAGER- albuterol sulfate 90 mcg/actuation 2 puffs inhalation Q4-6H PRN aripiprazole 5 mg PO aripiprazole ER (Abilify Maintena) 300 mg IM Q28D benztropine 0.5 mg PO BID bupropion HCl 75 mg PO DAILY cetirizine 10 mg PO DAILY fluticasone propionate 50 mcg/actuation 2 sprays intranasal DAILY 1 month mecobalamin (vitamin B12) (B12 Active) 1,000 mcg PO DAILY melatonin 3 mg PO BEDTIME multivitamin with minerals (Daily Multivitamin-Minerals tablet) 1 tab PO DAILY sodium chloride 0.65% 2 sprays intranasal Q3H Tobacco use date assessed: 06/12/24 Dental Screening Dental Screen Date: 06/12/24 Did you have a dental visit in the last 12 months?: No Did you have a dental problem in the last 6 months where you did not have access to dental care?: No Was dental information given to patient?: Patient has dentist HPI HPI Comments History of Present Illness Details 44-year-old male with anemia, schizoaffective disorder, MDD, generalized anxiety disorder, obesity, gout, chronic tension headaches, GERD, vitamin-D deficiency, allergic rhinitis, CKD 2, IFG, family hx of colon ca (father) Status post tracheostomy in 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 neuroleptic parkinsons > check imaging + sleep study RTO 6 mo Orthopedics GI Podiatry [facility] [place] Health Maintenance: Tdap and Flu today Colon - referred to GI PSA wnl 10/2023 Here today for CPE Neuro consult reviewed Psych started new med to counteract shakes since this time, this has helped. Reports mood is stable. Broke up w girlfriend, was living with Mom now moved to [place]. About 2 weeks ago had one of his black outs. Will be seeing counselor tomorrow. Unsure of triggers; used to be headaches but not getting as many headaches now. ED visit x 2 for cold sx. Notes reviewed. CXR negative. Due for labs today, will get done after visit. A1c done today improved at 5.9% Referred again today to GI given family hx and referred to [facility] podiatry for toe nails Eyes - glasses routine eye exams Skin - no issues Plan Flu and Tdap today Labs today; results to portal once available. GI and Podiatry referrals placed today Cont all meds; Cont care w/ care team RTO 6 mo routine fu with labs 1 week before, sooner PRN Labs from today show stable CBC, normal electrolytes, stable renal function BUN 14, creatinine 1.47, EGFR 53, fasting glucose 93, hemoglobin A1c 5.9%, normal calcium, elevation in liver enzymes AST 38, ALT 43, total cholesterol 112, triglycerides 73, LDL 67, HDL 31, B12 improved however remains low end of normal at 291, vitamin-D pending This note is constructed using voice recognition software. While every effort has been made to ensure accuracy in medical dir, still errors may have been included Sometimes, these errors may affect the content or meaning of the given sentence . [facility] Medical History Benign essential tremor Left knee pain History of retropharyngeal abscess Tremor of left hand Right anterior knee pain Surgical History S/P emergency tracheotomy for assistance in breathing History of surgery Labral tear of right hip joint Family History Father Colon cancer Alcoholism Mother Arthritis Daughter GERD (gastroesophageal reflux disease) Family/Other FH: mental illness Schizo affective schizophrenia Brother In good health Social History Household Members: Other Household Members Other:: [facility] Housing: Other ([facility]) Are you a primary hospice care sales consultant to a significant other at home: No Do you presently have visiting nurse or other home services: No Alcohol intake: never Patient Tobacco Use Status: Never used Tobacco e-Cigarette/Vaping Use: Never Used Second Hand Smoke Exposure: No service: No Current occupational status: employed 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 1. Little interest or pleasure in doing things: not at all 2. Feeling down, depressed, or hopeless: not at all 3. Trouble falling or staying asleep, or sleeping too much: not at all 4. Feeling tired or having little energy: not at all 5. Poor appetite or overeating: not at all 6. Feeling bad about yourself - or that you are a failure or have let yourself or your family down: not at all 7. Trouble concentrating on things, such as reading the newspaper or watching television: not at all 8. Moving or speaking so slowly that other people could have noticed. Or the opposite - being so fidgety or restless that you have been moving around a lot more than usual: not at all 9. Thoughts that you would be better off or of hurting yourself in some way: not at all Total score: 0 Depression Screening Interpretation: Negative Depression Screening Done: Yes 22412 - PHQ-9 Billing: Yes Source: Developed by Drs. Anderson Mijares, Shanda Sloan, Gurpreet Cabezas and colleagues, with an educational sandra from [employer]. Thrive Questionnaire Date Thrive assessed: 06/12/24 I am a: Patient What is your living situation today?: I have a steady place to live Within the past 12 months, did the food you bought not last and you didn't have the money to get more?: I choose not to answer this question Within the past 12 months, did you worry whether your food would run out before you got money to buy more?: I choose not to answer this question Do you have trouble paying for medicines?: No Do you have trouble getting transportation to medical appointments?: No Do you have trouble paying your heating and electricity bill?: No Do you have trouble taking care of your child, family member or friend?: No Do you have trouble with day-to-day activities such as bathing, preparing meals, shopping, managing finances, etc.?: No Are you currently unemployed and looking for a job?: No Are you interested in more education?: No Please select the resources that you would like help with: None Currently or been in a relationship where the following occur: I choose not to answer THRIVE Score: 0 AUDIT C Alcohol Use Questionnaire (AUDIT-C) 1. How often do you have a drink containing alcohol?: Never 3. How often do you have six or more drinks on one occasion?: Never Total Score: 0 Score Reviewed/Action Taken: Yes NIRU-7 AMB Questionnaire NIRU-7 Date NIRU - 7 assessed: 06/12/24 Feeling nervous, anxious, or on edge: 0 = Not at all Not being able to stop or control worryin = Not at all Worrying too much about different things: 0 = Not at all Trouble relaxin = Not at all Being so restless that it is hard to sit still: 0 = Not at all Becoming easily annoyed or irritable: 0 = Not at all Feeling afraid as if something awful might happen: 0 = Not at all Total NIRU-7 score (0-4 normal; 5-9 mild; 10-14 moderate; 15-21 severe): 0 Source: Developed by Drs. Anderson Mijares, Shanda Sloan, Gurpreet Cabezas and colleagues, with an educational sandra from [employer]. NIRU-7 Assessment Billing NIRU-7 Assessment Tool: NIRU-7 Assessment 45844 Review of Systems Const Details: Constitutional: Denies fever. Skin: Denies rash. Eye: Denies eye pain. ENMT: Denies sore throat and nasal congestion. Respiratory: Denies shortness of breath and cough. Gastrointestinal: Denies nausea, vomiting or abdominal pain. Cardiovascular: Denies chest pain and syncope. Genitourinary: Denies dysuria. Musculoskeletal: Denies back pain and extremity pain. Neurologic: Denies headaches, confusion, and weakness. Psychiatric: Denies suicidal thoughts and substance abuse. Allergy/ Immunologic: Denies impaired immunity. Physical exam (Primary Care) Vital Signs: Last Vital Signs Pulse 66 06/12/24 08:02 Resp 14 06/12/24 08:02 BP 102/68 06/12/24 08:02 Pulse Ox 96 06/12/24 08:02 Oxygen Delivery Method Room Air 06/12/24 08:02 BMI result Body Mass Index 31.8 BMI Assessment/Plan discussion: High BMI High, discussed plan: lifestyle Tobacco/Smoking Status: Tobacco use Status Tobacco use date assessed 06/12/24 06/12/24 08:04 Patient Tobacco Use Status Never used Tobacco 06/12/24 08:00 e-Cigarette/Vaping Use Never Used 06/12/24 08:00 PHQ-9: PHQ-9 Score PHQ-9: Total score 0 06/12/24 09:09 Depression Screening Interpretation: Negative Thrive Assessment: Date of Thrive Assessment Date Thrive assessed 06/12/24 06/12/24 08:00 Currently or been in a relationship where the following occur: I choose not to answer Const Other: General: Well developed, well nourished, in no acute distress. Appears stated age. Head: Normocephalic, atraumatic. Eyes: Pupils are equal, round and reactive to light and accommodation. Conjunctivae are clear. Vision grossly normal. Ears: TMs clear AU, EACS WNL Nose: Patent, without discharge. Mouth: There are no ulcers or lesions noted. No inflammation, no post nasal drip, no plaques nor exudates. Neck: Supple, no adenopathy or thyromegaly. Lungs: Clear to auscultation bilaterally. No rales, rhonchi or wheeze noted. Good air flow in all bautista. Heart: Regular rate and rhythm. No murmurs, click, rubs or gallops are noted. Abdomen: Bowel sounds present in all quadrants. The abdomen is soft, nontender, with no masses or organomegaly noted. No hernias are noted. Musculoskeletal: Joints are nontender, without swelling, redness, or effusions. Range of motion is observed to be normal. Pulses: Peripheral pulses are equal and palpable bilaterally. Extremities: No clubbing, cyanosis nor edema is noted. Neurologic: Gait and station normal. Cranial Nerves 2-12 intact. Motor strength grossly symmetrical and intact. No sensory loss. Balance normal. Skin: No rashes, ulcers, or lesions noted. Turgor is good. Skin color is good. Left great toe nail onychomycosis . Psych: Normal eye contact, affect and mood appropriate, and normal interactions. Patient is alert and appropriate to context. Office Procedures Flu Questionnaire Does the patient have a severe egg allergy?: No Does the patient have severe life threatening allergies?: No Does the patient have a fever or illness today?: No Has the patient ever had Guillain-Pandora Syndrome?: No Has the patient ever had any past reaction to a flu shot?: No Results AMB Hemoglobin A1c AMB Hemoglobin A1c 5.9 % Last Edit by Nikhil Almonte MA on 06/12/24 08:41 Immunizations Fluarix Triv [id number] (PF) 45 mcg (15 mcg x 3)/0.5 mL IM syringe Performing Provider: ELKIN Grimes Performing Location: [facility] Administered by: Lashae Stoddard RN on 06/12/24 08:41 Dose Route Admin Location Dispensed Lot Number Expiration Date ND Transport Operations Inspector 0.5 mL IM Right Deltoid 0.5 mL [id number] 02/19/25 [id number] [employer] VIS Given Date VIS Provided VIS Publication Date 06/12/24 Single Vaccine 21 Eligibility Eligibility Date Funding Source Not VFC Eligible 06/12/24 Private Administration Comments: Patient received the flu and TDaP vaccines today. Both given in the right deltoid, flu shot above the TDaP. Boostrix Tdap 2.5 Lf unit-8 mcg-5 Lf/0.5 mL intramuscular syringe Performing Provider: ELKIN Girmes Performing Location: [facility] Administered by: Lashae Stoddard RN on 06/12/24 08:41 Dose Route Admin Location Dispensed Lot Number Expiration Date ND Transport Operations Inspector 0.5 mL IM Right Deltoid 0.5 mL [id number] 05/20/25 [id number] [employer] VIS Given Date VIS Provided VIS Publication Date 06/12/24 Single Vaccine 21 Eligibility Eligibility Date Funding Source Not VFC Eligible 06/12/24 Private Administration Comments: Patient received the flu and TDaP vaccines today. Both given in the right deltoid, flu shot above the TDaP. Results Reviewed Results Reviewed: Laboratory Last Values Hgb A1c (Clinic) 5.9 % (4.0-6.0) 06/12/24 08:24 Coding Level of Care Code Est Pt Prev Care 40-64y(56566) Diagnoses Encounter for general adult medical examination without abnormal findings Z00.00 Anemia, unspecified type D64.9 Anemia type: unspecified type GERD without esophagitis K21.9 Family history of colon cancer Z80.0 Onychomycosis B35.1 IFG (impaired fasting glucose) R73.01 Vitamin D deficiency E55.9 Moderate episode of recurrent major depressive disorder F33.1 Major depression episode severity: moderate Obesity (BMI 30.0-34.9) E66.9 BMI 31.0-31.9,adult Z68.31 Stage 3a chronic kidney disease N18.31 Chronic kidney disease stage 3 subtype: stage 3a (GFR 45-59) B12 deficiency E53.8 Additional Codes NIRU-7 Assessment Billing - NIRU-7 Assessment Tool: NIRU-7 Assessment 13483 ([id number]) Assessment & Plan Assessment & Plan (1) Encounter for general adult medical examination without abnormal findings: Code(s): Z00.00 - Encounter for general adult medical examination without abnormal findings Plan: . (2) Anemia: Comment: noted on labs with normal Iron and low B12. Hgb trending Plan: cont daily MVI with minerals b12 1000mcg Qd Code(s): D64.9 - Anemia, unspecified Category: Medical Qualifiers: Anemia type: unspecified type Qualified Code(s): D64.9 - Anemia, unspecified (3) GERD without esophagitis: Code(s): K21.9 - Gastro-esophageal reflux disease without esophagitis Category: Medical Plan: . (4) Family history of colon cancer: Comment: Dad, age 79 of colon CA 2023 He is interested in meeting with GI to see what his risks are to see if he would benefit from an earlier colon cancer screening Code(s): Z80.0 - Family history of malignant neoplasm of digestive organs Category: Medical (5) Onychomycosis: Comment: Affecting left great toenail. refer to podiatry for further evaluation and treatment Code(s): B35.1 - Tinea unguium Category: Medical Plan: . (6) IFG (impaired fasting glucose): Comment: lifestyle mods & monitoring repeat labs in 3 months to include a1c Code(s): R73.01 - Impaired fasting glucose Category: Medical Plan: . (7) Vitamin D deficiency: Comment: was on vitamin D3 50 mcgs p.o. daily vitamin-D level > 40. started on MVI Cont MVI repeat Vit D annually Code(s): E55.9 - Vitamin D deficiency, unspecified Category: Medical Plan: . (8) MDD (major depressive disorder), recurrent episode: Comment: Currently managed on Abilify injectable as well as p.o., and bupropion by outside prescriber at [facility]. Also active with Psychiatry. Encouraged to follow up Code(s): F33.9 - Major depressive disorder, recurrent, unspecified Category: Medical Qualifiers: Major depression episode severity: moderate Qualified Code(s): F33.1 - Major depressive disorder, recurrent, moderate (9) Obesity (BMI 30.0-34.9): Comment: BMI >31 Lifestyle modifications encouraged Code(s): E66.9 - Obesity, unspecified Category: Medical (10) BMI 31.0-31.9,adult: Comment: . Code(s): Z68.31 - Body mass index [BMI] 31.0-31.9, adult Category: Medical Plan: . (11) CKD (chronic kidney disease) stage 3, GFR 30-59 ml/min: Comment: egfr 53, avoid nephrotoxic agents, monitor, hydrate Code(s): N18.30 - Chronic kidney disease, stage 3 unspecified Category: Medical Qualifiers: Chronic kidney disease stage 3 subtype: stage 3a (GFR 45-59) Qualified Code(s): N18.31 - Chronic kidney disease, stage 3a (12) B12 deficiency: Code(s): E53.8 - Deficiency of other specified B group vitamins Category: Medical Plan . Orders: Orders Influenza [id number] Immunization Today Z23 - Encounter for immunization TDaP Immunization Today Z23 - Encounter for immunization Lipid Panel 10/21/24 D64.9 - Anemia, unspecified, E53.8 - Deficiency of other specified B group vitamins, E55.9 - Vitamin D deficiency, unspecified, N18.31 - Chronic kidney disease, stage 3a, R73.01 - Impaired fasting glucose Complete Blood Count no Diff 10/21/24 D64.9 - Anemia, unspecified AMB Hemoglobin A1c Today R73.01 - Impaired fasting glucose, Z13.9 - Encounter for screening, unspecified Comprehensive Met. Panel 10/21/24 D64.9 - Anemia, unspecified, E53.8 - Deficiency of other specified B group vitamins, E55.9 - Vitamin D deficiency, unspecified, N18.31 - Chronic kidney disease, stage 3a, R73.01 - Impaired fasting glucose IRON PROFILE 10/21/24 D64.9 - Anemia, unspecified, E53.8 - Deficiency of other specified B group vitamins, E55.9 - Vitamin D deficiency, unspecified, N18.31 - Chronic kidney disease, stage 3a, R73.01 - Impaired fasting glucose Microalbumin, Random (w Creat) 10/21/24 D64.9 - Anemia, unspecified, E53.8 - Deficiency of other specified B group vitamins, E55.9 - Vitamin D deficiency, unspecified, N18.31 - Chronic kidney disease, stage 3a, R73.01 - Impaired fasting glucose TSH reflex Free T4 10/21/24 D64.9 - Anemia, unspecified, E53.8 - Deficiency of other specified B group vitamins, E55.9 - Vitamin D deficiency, unspecified, N18.31 - Chronic kidney disease, stage 3a, R73.01 - Impaired fasting glucose Vitamin D 1,25 dihydroxy 10/21/24 D64.9 - Anemia, unspecified, E53.8 - Deficiency of other specified B group vitamins, E55.9 - Vitamin D deficiency, unspecified, N18.31 - Chronic kidney disease, stage 3a, R73.01 - Impaired fasting glucose Referrals Gastroenterology Referral D64.9 - Anemia, unspecified, K21.9 - Gastro-esophageal reflux disease without esophagitis, Z80.0 - Family history of malignant neoplasm of digestive organs Podiatry Referral B35.1 - Tinea unguium Patient Instructions: Health screenings for men ages 40 to 64 You should visit your health care provider regularly, even if you feel healthy. The purpose of these visits is to: Screen for medical issues Assess your risk for future medical problems Encourage a healthy lifestyle Update vaccinations and other preventive care services Help you get to know your provider in case of an illness Information Even if you feel fine, you should still see your provider for regular checkups. These visits can help you avoid problems in the future. For example, the only way to find out if you have high blood pressure is to have it checked regularly. High blood sugar and high cholesterol level also may not have any symptoms in the early stages. Simple blood tests can check for these conditions. There are specific times when you should see your provider or receive specific health screenings. The [place] Preventive Services Task Force publishes a list of recommended screenings. Below are screening guidelines for men ages 40 to 64. BLOOD PRESSURE SCREENING Have your blood pressure checked at least once every year. Watch for blood pressure screenings in your area. Ask your provider if you can stop in to have your blood pressure checked. Ask your provider if you need your blood pressure checked more often if: You have diabetes, heart disease, kidney problems, or are overweight or have certain other health conditions You have a first-degree relative with high blood pressure You are Black Your blood pressure top number is from 120 to 129 mm Hg, or the bottom number is from 70 to 79 mm Hg If the top number is 130 mm Hg or greater or the bottom number is 80 mm Hg or greater, this is considered stage 1 hypertension. Schedule an appointment with your provider to learn how you can lower your blood pressure. Effects of age on blood pressure CHOLESTEROL SCREENING Cholesterol screening should begin at age 35 for men with no known risk factors for coronary heart disease. Repeat cholesterol screening should take place: Every 5 years for men with normal cholesterol levels More often if changes occur in lifestyle (including weight gain and diet) More often if you have diabetes, heart disease, kidney problems, or certain other conditions COLORECTAL CANCER SCREENING If you are under age 45, talk to your provider about getting screened. You may need to be screened if you have a strong family history of colon cancer or polyps. Screening may also be considered if you have risk factors such as a history of inflammatory bowel disease or polyps. If you are age 45 to 75, you should be screened for colorectal cancer. There are several screening tests available: A stool-based fecal occult blood (gFOBT) or fecal immunochemical test (FIT) every year A stool sDNA test every 1 to 3 years Flexible sigmoidoscopy every 5 years or every 10 years with stool testing FIT done every year CT colonography (virtual colonoscopy) every 5 years Colonoscopy every 10 years You may need a colonoscopy more often if you have risk factors for colorectal cancer, such as: Ulcerative colitis A personal or family history of colorectal cancer A history of growths in your colon called adenomatous polyps DENTAL EXAM Go to the dentist once or twice every year for an exam and cleaning. Your dentist will evaluate if you have a need for more frequent visits. DIABETES SCREENING All adults who do not have risk factors for diabetes should be screened starting at age 35 and repeated every 3 years. If you have other risk factors for diabetes, such as a first degree relative with diabetes, overweight or obesity, high blood pressure, prediabetes, or a history of heart disease, you may be tested more often. If you are overweight and have other risk factors, such as high blood pressure and are planning to become , screening is recommended. EYE EXAM Have an eye exam every 2 to 4 years ages 40 to 54 and every 1 to 3 years ages 55 to 64. Your provider may recommend more frequent eye exams if you have vision problems or glaucoma risk. Have an eye exam that includes an examination of your retina (back of your eye) at least every year if you have diabetes. IMMUNIZATIONS Commonly needed vaccines include: Flu shot: get one every year COVID-19 vaccine: ask your provider what is best for you Tetanus-diphtheria and acellular pertussis (Tdap) vaccine: have as one of your tetanus-diphtheria vaccines if you did not receive it as an adolescent Tetanus-diphtheria: have a booster (or Tdap) every 10 years Varicella vaccine: receive 2 doses if you never had chickenpox or the varicella vaccine and were born in 1979 or after Hepatitis B vaccine: receive 2, 3, or 4 doses, depending on your exact circumstances, if you did not receive these as a child or adolescent, until age 59 Shingles (herpes zoster) vaccine: at or after age 50 Ask your provider if you should receive other immunizations, especially if you have certain medical conditions, such as diabetes or are at increased risk for some diseases such as pneumonia. INFECTIOUS DISEASE SCREENING Screening for hepatitis C: all adults ages 18 to 79 should get a one-time test for hepatitis C. Screening for human immunodeficiency virus (HIV): all people ages 15 to 65 should get a one-time test for HIV. Depending on your lifestyle and medical history, you may need to be screened for infections such as syphilis, chlamydia, and other infections. LUNG CANCER SCREENING You should have an annual screening for lung cancer with low-dose computed tomography (LDCT) if: You are age 50 to 80 years AND You have a 20 pack-year smoking history AND You currently smoke or have quit within the past 15 years OSTEOPOROSIS SCREENING If you are age 50 to 64 and have risk factors for osteoporosis, you should discuss screening with your provider. Risk factors can include long-term steroid use, low body weight, smoking, heavy alcohol use, having a fracture after age 50, or a family history of hip fracture or osteoporosis. Osteoporosis PHYSICAL EXAM All adults should visit their provider from time to time, even if they are healthy. The purpose of these visits is to: Screen for diseases Assess risk of future medical problems Encourage a healthy lifestyle Update vaccinations and other preventive care services Maintain a relationship with a provider in case of an illness Your height, weight, and body mass index (BMI) should be checked at every exam. During your exam, your provider may ask you about: Depression and anxiety Diet and exercise Alcohol and tobacco use Safety, such as use of seat belts and smoke detectors Your medicines and risk for interactions PROSTATE CANCER SCREENING If you're 55 through 69 years old, before having the test, talk to your provider about the pros and cons of having a PSA test. Ask about: Whether screening decreases your chance of dying from prostate cancer. Whether there is any harm from prostate cancer screening, such as side effects from testing or overtreatment of cancer when discovered. Whether you have a higher risk of prostate cancer than others. If you are age 55 or younger, screening is not generally recommended. You should talk with your provider about if you have a higher risk for prostate cancer. Risk factors include: Having a family history of prostate cancer (especially a brother or father) Being If you choose to be tested, the PSA blood test is repeated over time (yearly or less often), though the best frequency is not known. Prostate examinations are no longer routinely done on men with no symptoms. Prostate cancer SKIN EXAM Your provider may check your skin for signs of skin cancer, especially if you're at high risk. People at high risk include those who have had skin cancer before, have close relatives with skin cancer, or have a weakened immune system. TESTICULAR EXAM The US Preventive Services Task Force (USPSTF) now recommends against performing testicular self-exams. Doing testicular self-exams has been shown to have little to no benefit.
[2024-06-12 08:02] VITALS: BP 102/68; PULSE 66; RESP 14; O2SAT 96; BMI 31.8
== END 2024-06-12 08:41 | disposition home or self-care (01) ==
PROVIDERS: Visit Provider Nurse Practitioner Family
DX: Z00.00 Encounter for general adult medical examination without abnormal findings (principal); N18.31 Chronic kidney disease, stage 3a; F33.1 Major depressive disorder, recurrent, moderate; E66.811 Obesity, class 1; Z68.31 Body mass index [BMI] 31.0-31.9, adult; D64.9 Anemia, unspecified; K21.9 Gastro-esophageal reflux disease without esophagitis; Z80.0 Family history of malignant neoplasm of digestive organs; B35.1 Tinea unguium; R73.01 Impaired fasting glucose; E55.9 Vitamin D deficiency, unspecified; E53.8 Deficiency of other specified B group vitamins

== ENCOUNTER → 2024-06-12 07:54 | Outpatient (BNVA) | payer OTHER, SELFPAY | PROVIDERS: Visit Provider Nurse Practitioner Family | DX: Z00.01 Encounter for general adult medical examination with abnormal findings (principal); D64.9 Anemia, unspecified; K21.9 Gastro-esophageal reflux disease without esophagitis; Z23 Encounter for immunization; B35.1 Tinea unguium; R73.01 Impaired fasting glucose; E55.9 Vitamin D deficiency, unspecified; F33.1 Major depressive disorder, recurrent, moderate; E66.9 Obesity, unspecified; Z68.31 Body mass index [BMI] 31.0-31.9, adult; N18.31 Chronic kidney disease, stage 3a; E53.8 Deficiency of other specified B group vitamins; Z80.0 Family history of malignant neoplasm of digestive organs | CPT/HCPCS: 83036; 90471; 90656; 90715; 96127; 99396 ==

== ENCOUNTER 2024-06-12 08:46 | Outpatient (REF) | payer OTHER, SELFPAY ==
[2024-06-12 11:49] LABS: Hematocrit 40.1 % (42.0-52.0); Hemoglobin 14.2 g/dl (14.0-18.0); Mean Corpuscular HGB Conc 35.4 g/dl (31.0-36.0); Mean Corpuscular Hemoglobin 31.9 pg (27.0-33.0); Mean Corpuscular Volume 90.1 fL (80.0-98.0); Mean Platelet Volume 12.2 fL (9.4-12.4); Platelet Count 200 X10*3/uL (160-400); Red Blood Count 4.45 X10*6/uL (4.60-5.80); Red Cell Distribution Width 11.9 % (11.0-16.0); White Blood Count 4.9 X10*3/uL (4.8-10.8)
[2024-06-12 12:31] LABS: Alanine Aminotransferase 43 U/L (0-40); Albumin Level 4.4 g/dL (3.5-5.0); Alkaline Phosphatase 60 U/L (39-117); Anion Gap 12 (12-20); Aspartate Amino Transferase 38 U/L (5-37); Bilirubin Total 0.7 mg/dL (0.0-1.0); Blood Urea Nitrogen 14 mg/dL (9-16); Calcium 9.8 mg/dL (8.4-10.2); Carbon Dioxide 27 mmol/L (22-29); Chloride 106 mmol/L (96-108); Cholesterol 112 mg/dL (<200); Estimated Glomerular Filt Rate 53; Glucose Fasting 93 mg/dL (60-99); HDL Cholesterol 31 mg/dL (>40); LDL Cholesterol Calculated 67 mg/dL (<100); Potassium 4.4 mmol/L (3.3-5.1); Sodium 141 mmol/L (135-145); Total Protein 7.4 g/dL (6.5-8.0); Triglycerides 73 mg/dL (<150)
[2024-06-12 12:58] LABS: Folate 8.2 ng/mL (> or = 4.0); Vitamin B12 291 pg/mL (200-900)
[2024-06-16 16:12] LABS: VITAMIN D (1,25 OH) D3 44 pg/mL; Vit D (1,25-Dihydroxy) Total 44 pg/mL (18-72); Vitamin D (1,25 OH) D2 <8 pg/mL
== END 2024-06-12 08:47 | disposition home or self-care (01) ==
LOC: HO.WFDLDS 08:46
PROVIDERS: Visit Provider Nurse Practitioner Family
DX: N18.31 Chronic kidney disease, stage 3a (principal); R73.01 Impaired fasting glucose; Z13.9 Encounter for screening, unspecified; E55.9 Vitamin D deficiency, unspecified
CPT/HCPCS: 36415; 80053; 80061; 82607; 82652; 82746; 85027

== ENCOUNTER 2024-08-30 13:31 | Outpatient (AMB) | payer OTHER, SELFPAY ==
[2024-08-30 13:34] VITALS: BP 108/70; PULSE 81; O2SAT 96; BMI 31.4
--- NOTE | 2024-08-30 13:34 | A.OFFVIS_ITS ---
Vital Signs 08/30/24 13:34 Height 5 ft 11 in Weight 225 lb BMI 31.4 BP 108/70 Blood Pressure Location Lt brachial Position Sitting Pulse 81 Pulse Source Pulse Oximeter Pulse Oximetry (%) 96 Oxygen Delivery Method Room Air Intake Visit Reasons: 6 Month F/U Crepe Sole Scourer Required: No Accompanied by: Self / Same As Patient Allergies mushroom [MUSHROOM] Allergy (Intermediate, Verified 08/30/24 13:36) SHORTNESS OF BREATH Seasonal Allergies Allergy (Intermediate, Verified 08/30/24 13:36) Unknown Medication List - Last Reconciled 08/30/24 by Paul Osullivan PA-C albuterol sulfate 90 mcg/actuation 2 puffs inhalation Q4-6H PRN aripiprazole ER (Abilify Maintena) 300 mg IM Q28D benztropine 0.5 mg PO BID bupropion HCl 75 mg PO DAILY cetirizine 10 mg PO DAILY fluticasone propionate 50 mcg/actuation 2 sprays intranasal DAILY 1 month magnesium oxide 400 mg PO DAILY mecobalamin (vitamin B12) (B12 Active) 1,000 mcg PO DAILY melatonin 3 mg PO BEDTIME multivitamin with minerals (Daily Multivitamin-Minerals tablet) 1 tab PO DAILY sodium chloride 0.65% 2 sprays intranasal Q3H valbenazine (Ingrezza) 40 mg PO QAM HPI Comments Details: 43- yr-old male presents for new pt evaluation of movement disorder, specifically: LUE tremor. PMH significant for:schizoaffective disorder, depression, generalized anxiety disorder, GERD / hiatal hernia s/p Rey funduplication (07/2015, Dr. Pena), seasonal allergies, vitamin D deficiency, adenovirus (+) PCR and CT scan c.w. a large left-side retro & parapharyngeal abscess with extension into posterior mediastinum / ELDA / sCreat peaked = 1.6 s/p emergency tracheostomy & I&D of abscess (01/02/2023, Dr. Ramirez) s/p tracheostomy removal (December 2022 at [facility]). Pt is concerned about a LUE rest tremor, which he started months ago and his family/friends also noticed months ago. He States tremor happens anytime. Tremor is not increase with action- such as pouring water etc. Pt is concerned that his abilify use may have caused the tremor, however he does admit he drinks one liter of coke per day. Tremor travels up to the head from the L. side. Abilifiy inj. in L. arm, for schizo - affective disorder. He has a family history of tremors. He states the Ingrezza not working, Psychiatrist one month ago. -every 3 months, Therapist biweekly. Pt is right handed. ADL status: Ind. Currently lives with room mate in [facility] IADL status: Cannot manage his own finances- d/t compulsivity, difficulty prioritizing finances. Fine-motor skills: No issues Micrographia: Denies changes in writing Vision changes: Denies. But rarely blinks- per his friend. May stare off and not blink for 10 minutes. Denies h/o seizure. Hypophonia: Denies Hyposmia: Denies insomnia HST was normal. Dysphagia: Denies Drooling: Denies Orthostatic lightheadedness: Sometimes- briefly GI: Denies constipation : Denies Musculoskeletal: Denies neck or back pain. Slowness: Denies Freezing episodes: Denies Tremor: none other Involuntary movements: Denies Dyskinesia: Denies Stiffness: Denies Paresthesias: Denies Gait changes: Denies Sleep difficulty: Poor sleep. Uses Melatonin- but tries not to take it as he is worried that he will take too many. Has been told he snores. Some fragmented sleep, unrefreshing sleep, daytime sleepiness, restless sleep. Parasomnias: Has been told he talks in his sleep. Has woken up believing his vivid dream is real. Memory impairment: States memory is not great. Graduated high school- states was not a good student- had an IEP when younger and graduated from it, but struggled more in high school and this is when he starting showing signs of mental health d/o. Hallucinations: Not since he has been on Abilify. Has had hallucinations since about age 22- auditory, visual, and was talking to them. Usual exercise: Walks. Does candlepin bowling. He is currently under care of psychiatry and psychology through [facility]. History of concussion/head injury? He had 2 mild concussions w/ scalp laceration x's 2- high school- hit his head on a ceiling; struck top of his head on a piece of metal when he stood up too fast. History of neuroleptic (metoclopramide/antipsychotics) use? Zyprexa when younger- x's a few months. Beatay x's 2 yrs- currently taking. History of psychiatric hospitalizations? Denies History of occupational chemical exposures? Denies Family history of movement disorders? Mother and maternal grandfather. Family history of mood disorder or suicide? Denies [facility] Medical History Benign essential tremor Left knee pain History of retropharyngeal abscess Tremor of left hand Right anterior knee pain Surgical History S/P emergency tracheotomy for assistance in breathing History of surgery Labral tear of right hip joint Family History Father Colon cancer Alcoholism Mother Arthritis Daughter GERD (gastroesophageal reflux disease) Family/Other FH: mental illness Schizo affective schizophrenia Brother In good health Social History Household Members: Other Household Members Other:: [facility] Both parents involved: No Caregiver staying overnight: No Housing: Other ([facility]) Are you a primary farm or ranch animal caretaker to a significant other at home: No Do you presently have visiting nurse or other home services: No 75 years or older and lives alone: No Alcohol intake: never Patient Tobacco Use Status: Never used Tobacco e-Cigarette/Vaping Use: Never Used Second Hand Smoke Exposure: No service: No Current occupational status: employed 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 Current occupational exposures/hazards: No Sexual orientation: Straight/Heterosexual Gender identity: Male Cognitive needs: No Hearing needs: No Vision needs: Yes Review of Systems Const All systems reviewed & are unremarkable except as noted in HPI and below ENT Reports Normal hearing present Neuro Reports Normal hearing present Physical Exam Vital Signs: Last Vital Signs Pulse 81 08/30/24 13:34 BP 108/70 08/30/24 13:34 Pulse Ox 96 08/30/24 13:34 Oxygen Delivery Method Room Air 08/30/24 13:34 BMI result Body Mass Index 31.4 Const General: cooperative, poor hygiene and tired appearing Nutritional Appearance: average body habitus Orientation/consciousness: patient oriented x3 Eyes Pupils: Equal, round and reactive pupils present Neck Neck: Yes full ROM Resp Effort & Inspection: normal respiratory effort and able to speak in complete sentences Neuro General: patient oriented x3 Cranial nerves: Yes CN's II-XII intact bilaterally, Yes Facial sensation intact/muscles of mastication intact, Yes Equal, round and reactive pupils present, Yes Normal accommodation reflex present, Yes Bilaterally intact EOM present, Yes Nystagmus not present, Yes Normal facial strength present, Yes Midline tongue present, Yes Normal hearing present, Yes Ability to bilaterally rotate head present and Yes Ability to bilaterally elevate shoulders present Motor exam (neuro): 5/5 motor strength present throughout, Pronator motor function not present and Motor abnormalites present (LUE) Deep tendon reflexes (DTR's): Right triceps reflex intensity grade: 2+, Left triceps reflex intensity grade: 2+, Rt Biceps (C5, C6): 2+, Left biceps reflex intensity grade: 2+, Right brachioradialis reflex intensity grade: 2+, Left brachioradialis reflex intensity grade: 2+, Right patellar reflex intensity grade: 2+, Left patellar reflex intensity grade: 2+, Right ankle reflex intensity grade: 2+ and Left ankle reflex intensity grade: 2+ Coordination: [id number] test normal Psych Appearance: disheveled Affect: Anxious affect present Attitude: cooperative Thought process: Normal thought process present Thought content: Normal thought content present Insight: Good insight present (Psych) and Fair insight present (Psych) Judgement: Fair judgement present (Psych) Results Reviewed Results Reviewed: Labs Assessment & Plan Assessment & Plan (1) Muscle cramps at night: Code(s): R25.2 - Cramp and spasm Category: Medical Plan Tremor LUE travels to head Magnesium 400mg at bedtime will also help with daily muscle spasms /cramps RLS? / PLMS? Will consider NCS after eliminating caffeine use, and once he has the discussion with his psychiatrist re: changing medications safely from Abilify injections to other meds which work for his schizo-affective disorder. Increase water intake to 60% of body weight. Omegas daily for brain health, B6 200 mg for Nerves. Melatonin 3mg to 10mg PRN to help with relaxation of mood and sleep. Medications: New melatonin 3 mg PO BEDTIME 30 tabs 3RF G47.19 - Other hypersomnia magnesium oxide 400 mg PO DAILY 30 tabs 3RF muscle spasms G25.9 - Extrapyramidal and movement disorder, unspecified pyridoxine (vitamin B6) 100 mg PO 2XW 30 tabs 1RF omega-3 fatty acids 500 mg PO DAILY 30 caps 3RF Coding Level of Care Code Est Pt Level 4 (60063) Diagnoses Muscle cramps at night R25.2 Time Spent (min) 40 Comment Baseline
== END 2024-08-30 14:16 | disposition home or self-care (01) ==
PROVIDERS: PCP Nurse Practitioner Family; Visit Provider Nurse Practitioner Family
DX: R25.2 Cramp and spasm (principal)
CPT/HCPCS: 99214

== ENCOUNTER → 2024-08-30 13:31 | Outpatient (BNVA) | payer OTHER, SELFPAY | PROVIDERS: PCP Nurse Practitioner Family; Visit Provider Nurse Practitioner Family | DX: R25.2 Cramp and spasm (principal) | CPT/HCPCS: 99212 ==

== ENCOUNTER 2024-12-25 10:46 | Outpatient (AMB) | payer OTHER, SELFPAY ==
--- NOTE | 2024-12-25 10:57 | MHC.OFFVIS ---
Vital Signs 12/25/24 11:11 12/25/24 11:18 Height 5 ft 11 in Weight 224 lb 13.944 oz BMI 31.4 BP 180/139 H 90/55 L Blood Pressure Location Lt brachial Lt brachial Position Sitting Sitting Pulse 257 H 55 Intake Visit Reasons: Family Hx, GERD, Anemia Intake Note: Terry presents in the office as a new patient for FHx Colon Cancer, GERD, and Anemia. CC: He states that he is feeling okay and not having any concerns at this time. He states that he does have an issue with coughing - he states he had a virus in his throat and has issues at times with coughing as he is swallowing. He states at times he gets a choking like feeling but not all the time. Sightseeing Guide Required: No Allergies mushroom [MUSHROOM] Allergy (Intermediate, Verified 12/25/24 11:12) SHORTNESS OF BREATH Seasonal Allergies Allergy (Intermediate, Verified 12/25/24 11:12) Unknown HPI Comments Details: 44 y.o M with pertinent hx of left sided retropharyngeal abscesss necessitating emergent trach 12/2022, GERD s/p fundoplication 2014 (Dr Pena), fam hx of colon ca, who is here for 2 main issues. Pt reports for the past 1 year has been having intermittent difficulty swallowing with larger pieces of food. Often coughs it up or regurgitates it. Has hx of tracheostomy as above in 2022. In addition, father was diagnosed with colon cancer in his 70s. Referral also states anemia but pt with normal H/H and iron studies. Does have low RBC count though. [facility] Medical History (Updated 12/25/24 @ 12:05 by Latoya Weber MD) Dysphagia Benign essential tremor Left knee pain History of retropharyngeal abscess Tremor of left hand Right anterior knee pain Surgical History S/P emergency tracheotomy for assistance in breathing History of surgery Labral tear of right hip joint Family History Father Colon cancer Alcoholism Mother Arthritis Daughter GERD (gastroesophageal reflux disease) Family/Other FH: mental illness Schizo affective schizophrenia Brother In good health Social History Household Members: Other Household Members Other:: [facility] Both parents involved: No Caregiver staying overnight: No Housing: Other ([facility]) Are you a primary social worker palliative care to a significant other at home: No Do you presently have visiting nurse or other home services: No 75 years or older and lives alone: No Alcohol intake: never Patient Tobacco Use Status: Never used Tobacco e-Cigarette/Vaping Use: Never Used Second Hand Smoke Exposure: No service: No Current occupational status: employed 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 Current occupational exposures/hazards: No Sexual orientation: Straight/Heterosexual Gender identity: Male Cognitive needs: No Hearing needs: No Vision needs: Yes Review of Systems Const All systems reviewed & are unremarkable except as noted in HPI and below Physical Exam Vital Signs: Last Vital Signs Pulse 55 12/25/24 11:18 BP 90/55 L 12/25/24 11:18 BMI result Body Mass Index 31.4 No apparent distress mild tremors in LUE Nonicteric Abdomen soft, nondistended Alert and oriented x3, normal gait Assessment & Plan Assessment & Plan (1) Dysphagia: Code(s): R13.10 - Dysphagia, unspecified Category: Medical (2) Family history of colon cancer: Code(s): Z80.0 - Family history of malignant neoplasm of digestive organs Category: Medical Plan 1. dysphagia Reports intermittent dysphagia in the background of emergent trach 2022. Also has hx of GERD with esophagitis s/p nissens. Ddx include stricture/web, dysmotility. Plan: - barium swallow - EGD 2. Fam hx of colon ca Given colon ca in FDR age >60, will need colo screening to start early but average intervals will apply. Plan: - colo to be booked - PEG prep Rxed and instructions reviewed Follow up after egd/colo Orders: Orders Comprehensive Met. Panel Today D64.9 - Anemia, unspecified Prothrombin Time INR Today D64.9 - Anemia, unspecified [place] barium swallow Today R13.10 - Dysphagia, unspecified Complete Blood Count no Diff Today D64.9 - Anemia, unspecified Medications: New peg 3350-electrolytes 236-22.74-6.74 -5.86 gram (Golytely) as per split prep instructions, until fecal effluent is clear 240 mL PO Q10M 4,000 mL 0RF colonoscopy Coding Level of Care Code New Pt Level 4 (87236) Diagnoses Dysphagia R13.10 Family history of colon cancer Z80.0
[2024-12-25 11:11] VITALS: BP 180/139; PULSE 257; BMI 31.4
[2024-12-25 11:18] VITALS: BP 90/55; PULSE 55
--- OUTSIDE RECORDS SUMMARY | 2024-12-25 12:16 | XMS_ITS | Clinical Summary ---
Author Organization [facility] Address [address] [place] [address] Care Team Providers Care Hydraulic Spinner Name Role Phone EvonnegatotatikarishmaEduard NP Primary Care Provider [phone] Source Comments PLEASE NOTE, if this patient is a minor, it may be UNLAWFUL to discuss sensitive information that is contained in these records (such as FAMILY PLANNING, MENTAL HEALTH or SUBSTANCE ABUSE) with the minor patient's parent or other person without the patient's specific authorization.[facility] Allergies No known active allergies Medications ANTI-DANDRUFF WITH MENTHOL 1 % susp APPLY TO AFFECTED AREA DAILY 325 mL 3 4 Active OLANZapine (ZYPREXA) 10 mg tabletIndications:C hronic schizoaffective disorder (HCC-CMS) Take 1 Tab by mouth nightly at bedtime. PER PSYCH. 4 Active FLUoxetine (PROZAC) 10 mg capsuleIndications: Depression Take 1 Cap by mouth once daily. PER PSYCH. 5 Active traZODone (DESYREL) 50 mg tabletIndications:I nsomnia Take 1 Tab by mouth nightly at bedtime. PER PSYCH. 5 Active hydrocortisone 2.5 % creamIndications:Bu g bites Apply topically 2 (two) times daily. 30 g 1 5 Active selenium sulfide 2.5 % topical suspensionIndicatio ns:Seborrheic dermatitis Apply topically once daily as needed for itching. 120 mL 1 5 Active nystatin (MYCOSTATIN) 100,000 unit/gram ointmentIndications :Tinea pedis of both feet Apply topically 2 (two) times daily. 30 g 1 6 Active acetaminophen (TYLENOL) 500 mg tabletIndications:R ight hip pain Take 1 Tab by mouth every 6 (six) hours as needed for pain 90 Tab 7 Active Active Problems Problem Noted Date Diagnosed Date Vitamin B 12 deficiency 2016 Depression 05/02/2015 Overview (05/02/2015): F/U PSYCH @ [facility]. Migraine headache 12/08/2013 Overview (10/17/2014): Seen by Dr. 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 GI F/U AT [facility]. Repeat EGD 11/29/14 still with severe erosive esophagitis on high PPI use. Repeat EGD 06/16/16 = focal esophagitis limited to area GE junctio, superficial gastritis - Bxs: mod chronic gastritis, H.pylori neg, esophagus mild reflux esophagitis Iron deficiency anemia 03/31/2012 Chronic schizoaffective disorder ([facility]) 06/18 Overview (06/08/2013): DX: 2008. ON PSYCH F/U. Insomnia 06/18/2010 Overview (06/08/2013): ON PSYCH F/U. Right hip pain Resolved Problems Problem Noted Date Diagnosed Date Resolved Date Right knee pain 06/08/2013 12/21/2016 Vitamin B12 deficiency anemia 03/31/2012 01/04/2014 Immunizations Immunization Administration Dates Next Due Flu, Preservative Free 08/02/2017,05/19/2016 Hep B, Adult/Adol (ENERGIX/RECOMBIVAX) 1 INFLUENZA, SEASONAL, INJECTABLE 07/27/2014,06/08,09/28/2012 Family History Medical History Relation Name Comments Cancer Father COLON Diabetes Father Hypertension Father Diabetes Mother Hypertension Mother Cancer Paternal Grandmother BREAST CA Heart Problems Paternal Grandmother CA Relation Name Status Comments Father Alive Mother Alive Paternal Grandmother Social History Tobacco Use Types Packs/Day Years Used Date Smoking Tobacco: Never Smokeless Tobacco: Never Alcohol Use Standard Drinks/Week Comments Yes 0 (1 standard drink = 0.6 oz pur e alcohol) RARE Social Connections Answer Date Recorded Social Connections and Isolation 0 04/15/2019 Financial Resource Strain Answer Date R ecorded Financial Resource Strain 0 2018 Stress Answer Date Recorded Stress 0 04/15/2019 Physical Activity Answer Date Recorded Physical Activity 0 04/15/2019 Food Insecurity Answer Date Recorded Food 0 04/15/2019 Transportation Needs Answer Date Record ed Transportation 0 04/15/2019 Housing Stability Answer Date Recorded Housing 0 04/15/2019 Safety and Environment Answer Date Mekhi rded Safety 0 04/15/2019 Utilities Answer Date Recorded Utilities 0 04/15/2019 Employment Answer Date Recorded Employment 0 04/15/2019 Sex and Gender Information Value Date Recorded Sex Assigned at Male 08/02/2017 6:11 AM PST Legal Sex Male 11:36 AM PDT Gender Identity Male 08/02/2017 6:11 AM PST Sexual Orientation Don't know 08/02/2017 6: 11 AM PST 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[employer] Not on file Not on file Not on file Last Filed Vital Signs Vital Sign Reading Time Taken Comments Blood Pressure 110/79 08/02/2017 9:11 AM EST Pulse 80 08/02/2017 9:11 AM EST Temperature 36.5 ??C (97.7 ??F) 08/02/2017 9:11 AM ES T Respiratory Rate 16 08/02/2017 9:11 AM EST Oxygen Saturation 97% 01/10/2016 10: 56 AM EDT Inhaled Oxygen Concentration - - Weight 97.8 kg (215 lb 11.2 oz) 08/02/2017 9:11 AM EST Height 180.3 cm (5' 11 ) 08/02/2017 9:11 AM EST Body Mass Index 30.08 08/02/2017 9:11 AM EST Plan of Treatment Not on file Insurance [facility] [employer] Member Subscriber Plan / Payer (Ef fective 2016-Present) Name:Terry Quintanilla Relation to Subscriber:Self Name:Terry Quintanilla Payer ID:[id number] Group ID:Not on file Type:Indemnity Address: [facility] [address] [address] Care Teams Hydraulic Spinner Relationship Specialty Start Date End Date Eduard Nunez NP [address] [place] [address] PCP - General THRILL PERFORMER Gerontology 07/01/19
== END 2024-12-25 13:27 | disposition home or self-care (01) ==
LOC: HO.HGI 10:47
PROVIDERS: PCP Nurse Practitioner Family; Visit Provider Internal Medicine
DX: R13.10 Dysphagia, unspecified (principal); Z80.0 Family history of malignant neoplasm of digestive organs
CPT/HCPCS: 99204

== ENCOUNTER 2024-12-25 10:46 | Outpatient (REF) | payer OTHER, SELFPAY ==
[2024-12-25 12:51] LABS: Hematocrit 42.5 % (42.0-52.0); Hemoglobin 14.9 g/dl (14.0-18.0); Mean Corpuscular HGB Conc 35.1 g/dl (31.0-36.0); Mean Corpuscular Hemoglobin 31.1 pg (27.0-33.0); Mean Corpuscular Volume 88.7 fL (80.0-98.0); Platelet Count 190 X10*3/uL (160-400); Red Blood Count 4.79 X10*6/uL (4.60-5.80); Red Cell Distribution Width 11.8 % (11.0-16.0)
[2024-12-25 12:53] LABS: INTERNATIONAL NORM RATIO 1.1 (0.9-1.1); Prothrombin Time 12.6 SEC (10.9-12.4)
[2024-12-25 13:14] LABS: Alanine Aminotransferase 44 U/L (0-40); Albumin Level 4.6 g/dL (3.5-5.0); Alkaline Phosphatase 66 U/L (39-117); Anion Gap 12 (12-20); Aspartate Amino Transferase 36 U/L (5-37); Blood Urea Nitrogen 15 mg/dL (9-16); Calcium 9.4 mg/dL (8.4-10.2); Carbon Dioxide 28 mmol/L (22-29); Chloride 104 mmol/L (96-108); Estimated Glomerular Filt Rate > 60; Glucose Random 95 mg/dL (60-115); Potassium 4.3 mmol/L (3.3-5.1); Sodium 140 mmol/L (135-145); Total Protein 7.9 g/dL (6.5-8.0)
--- OUTSIDE RECORDS SUMMARY | 2024-12-25 13:43 | XMS_ITS | Clinical Summary ---
Author Organization [facility] Address [address] [place] [address] Care Team Providers Care Furniture Mechanic Name Role Phone EvonnegatotatikarishmaEduard NP Primary Care Provider [phone] Source Comments PLEASE NOTE, if this patient [...] Depression 05/02/2015 Overview (05/02/2015): F/U PSYCH @ [facility]. Migraine headache 12/08/2013 Overview (10/17/2014): Seen by Dr. 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 GI F/U AT [facility]. Repeat EGD 11/29/14 still with severe erosive esophagitis on high PPI use. Repeat EGD 06/16/16 = focal esophagitis limited to area GE junctio, superficial gastritis - Bxs: mod chronic gastritis, H.pylori neg, esophagus mild reflux esophagitis Iron deficiency anemia 03/31/2012 Chronic schizoaffective disorder ([facility]) 06/18 Overview (06/08/2013): DX: 2008. 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
== END 2024-12-25 10:47 | disposition home or self-care (01) ==
LOC: HO.LAB 10:46
PROVIDERS: PCP Nurse Practitioner Family; Visit Provider Internal Medicine
DX: R13.10 Dysphagia, unspecified (principal); D64.9 Anemia, unspecified; Z79.01 Long term (current) use of anticoagulants
CPT/HCPCS: 36415; 80053; 85027; 85610; 99202

== ENCOUNTER 2024-12-28 10:54 | Outpatient (REF) | payer OTHER, SELFPAY ==
--- NOTE | ~2024-12-28 | US_ITS ---
CLINICAL HISTORY: R79.89 - Other specified abnormal findings of blood chemistry US abdomen complete Comparison: None Findings: Technical difficulties secondary to overlying bowel gas. The majority of the pancreas is obscured from visualization by the overlying bowel gas. The visualized aorta and inferior vena cava are normal caliber. The liver is normal in size with steatosis. There is no intrahepatic bile duct dilatation. The common duct is 2 mm in diameter. The gallbladder is normal. There is no sonographic Pedraza sign. The main portal vein is antegrade. The right kidney is 10 cm in length. The left kidney is 10.5 cm in length. The spleen is normal. No ascites. IMPRESSION: No acute findings. Hepatic steatosis This document has been electronically signed by: Espinoza Dale MD on 12/29/2024 05:01:42
--- OUTSIDE RECORDS SUMMARY | 2024-12-28 12:26 | XMS_ITS | Clinical Summary ---
Author Organization [facility] Address [address] [place] [address] Care Team Providers Care Bottle Packer Name Role Phone MariamkarishmaEduard NP Primary Care Provider [phone] Source Comments PLEASE NOTE, if this patient [...] Depression 05/02/2015 Overview (05/02/2015): F/U PSYCH @ [facility]. Migraine headache 12/08/2013 Overview (10/17/2014): Seen by Dr. 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 GI F/U AT [facility]. Repeat EGD 11/29/14 still with severe erosive esophagitis on high PPI use. Repeat EGD 06/16/16 = focal esophagitis limited to area GE junctio, superficial gastritis - Bxs: mod chronic gastritis, H.pylori neg, esophagus mild reflux esophagitis Iron deficiency anemia 03/31/2012 Chronic schizoaffective disorder ([facility]) 06/18 Overview (06/08/2013): DX: 2008. 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 ALLI[employer] Member Subscriber Plan / Payer (Ef fective 2016-Present) Name:Terry Quintanilla Relation to Subscriber:Self Name:Terry Quintanilla Payer ID:[id number] Group ID:Not on file Type:Indemnity Address: [facility] [address] [address] Care Teams Bottle Packer Relationship Specialty Start Date End Date Eduard Nunez NP [address] [place] [address] PCP - General BRAILLE TRANSLATOR Gerontology 07/01/19
== END 2024-12-28 10:55 | disposition home or self-care (01) ==
LOC: HO.US 10:54
PROVIDERS: Visit Provider Internal Medicine
DX: R79.89 Other specified abnormal findings of blood chemistry (principal)
CPT/HCPCS: 76700

== ENCOUNTER → 2024-12-28 10:57 | Outpatient (BNV) | payer OTHER, SELFPAY | PROVIDERS: Visit Provider Radiology Diagnostic Radiology | DX: K76.0 Fatty (change of) liver, not elsewhere classified (principal) | CPT/HCPCS: 76700 ==

== ENCOUNTER 2025-01-11 08:53 | Outpatient (AMB) | payer OTHER, SELFPAY ==
[2025-01-11 08:59] VITALS: BP 116/72; PULSE 80; O2SAT 96; BMI 32.4
--- NOTE | 2025-01-11 08:59 | A.OFFVIS_ITS ---
Vital Signs 01/11/25 08:59 Height 5 ft 11 in Weight 232 lb BMI 32.4 BP 116/72 Blood Pressure Location Rt brachial Position Sitting Pulse 80 Pulse Source Pulse Oximeter Pulse Oximetry (%) 96 Oxygen Delivery Method Room Air Intake Visit Reasons: 6 mo follow up Intake Note: Patient presents follow up muscle cramp medication. States daughter has absent seizures and looking to see if maybe he should get checked as well. Allergies mushroom [MUSHROOM] Allergy (Intermediate, Verified 01/11/25 09:04) SHORTNESS OF BREATH Seasonal Allergies Allergy (Intermediate, Verified 01/11/25 09:04) Unknown HPI Comments Details: 44- yr-old r. handed male presents for f/u of movement disorder, specifically: LUE tremor which radiates to the head. PMH significant for:schizoaffective disorder, depression, generalized anxiety disorder, GERD / hiatal hernia s/p Rey funduplication (07/2015, Dr. Pena), seasonal allergies, vitamin D deficiency, adenovirus (+) PCR and CT scan c.w. a large left-side retro & parapharyngeal abscess with extension into posterior mediastinum / ELDA / sCreat peaked = 1.6 s/p emergency tracheostomy & I&D of abscess (01/02/2023, Dr. Ramirez) s/p tracheostomy removal (December 2022 at [facility]). He is scheduled for an endoscopy with [facility] in Mar 2025, due to h/o familial colon cancer. His mother passed in Oct 2024 at the age of 80. Today he is concerned about the L. hand rest tremor, which started years ago and his family/friends also noticed months ago. He states tremor happens anytime, does not increase with action, pouring water, etc. Pt is concerned that his Abilify use may have caused the tremor, now he no longer drinks coke or coffee. Tremor travels up to the head from the L. hand. Abilifiy inj. in L. arm, for schizo - affective disorder, q28 days. He has a family history of tremors and is concerned about having parkinson's disease as he ages. He also reports his 19 year old daughter was diagnosed with Absence seizures and he would also like to be tested as he wants ensure there is not genetic component as he remembers a h/o loc in his mid 20s. He states the Ingrezza was not effective so he stopped taking it per Psychiatrist whom he sees every 3 months, and Therapist biweekly. Pt is right handed. ADL status: Ind. Currently lives with room mate in [facility] IADL status: Cannot manage his own finances- d/t compulsivity, difficulty prioritizing finances. Fine-motor skills: No issues Micrographia: Denies changes in writing Vision changes: Denies. But rarely blinks- per his friend. May stare off and not blink for 10 minutes. Denies h/o seizure. Hypophonia: Denies Hyposmia: Denies insomnia HST was normal. Dysphagia: Denies Drooling: Denies Orthostatic lightheadedness: Sometimes- briefly GI: Denies constipation : Denies Musculoskeletal: Denies neck or back pain. Slowness: Denies Freezing episodes: Denies Tremor: none other Involuntary movements: Denies Dyskinesia: Denies Stiffness: Denies Paresthesias: Denies Gait changes: Denies Sleep difficulty: Poor sleep. Uses Melatonin- but tries not to take it as he is worried that he will take too many. Has been told he snores. Some fragmented sleep, unrefreshing sleep, daytime sleepiness, restless sleep. Parasomnias: Has been told he talks in his sleep. Has woken up believing his vivid dream is real. Memory impairment: States memory is not great. Graduated high school- states was not a good student- had an IEP when younger and graduated from it, but struggled more in high school and this is when he starting showing signs of mental health d/o. Hallucinations: Not since he has been on Abilify. Has had hallucinations since about age 22- auditory, visual, and was talking to them. Usual exercise: Walks. Does candlepin bowling. He is currently under care of psychiatry and psychology through [facility]. History of concussion/head injury? He had 2 mild concussions w/ scalp laceration x's 2- high school- hit his head on a ceiling; struck top of his head on a piece of metal when he stood up too fast. History of neuroleptic (metoclopramide/antipsychotics) use? Zyprexa when younger- x's a few months. Abilify x's 2 yrs- currently taking. History of psychiatric hospitalizations? Denies History of occupational chemical exposures? Denies Family history of movement disorders? Mother and maternal grandfather. Family history of mood disorder or suicide? Denies [facility] Medical History Dysphagia Benign essential tremor Left knee pain History of retropharyngeal abscess Tremor of left hand Right anterior knee pain Surgical History S/P emergency tracheotomy for assistance in breathing History of surgery Labral tear of right hip joint Family History Father Colon cancer Alcoholism Mother Arthritis Daughter GERD (gastroesophageal reflux disease) Family/Other FH: mental illness Schizo affective schizophrenia Brother In good health Social History Household Members: Other Household Members Other:: [facility] Housing: Other ([facility]) Are you a primary care assistant to a significant other at home: No Do you presently have visiting nurse or other home services: No Alcohol intake: never Patient Tobacco Use Status: Never used Tobacco e-Cigarette/Vaping Use: Never Used Second Hand Smoke Exposure: No service: No Current occupational status: employed 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 [employer] Current occupational exposures/hazards: No Sexual orientation: Straight/Heterosexual Gender identity: Male Cognitive needs: No Hearing needs: No Vision needs: Yes Physical Exam Vital Signs: Last Vital Signs Pulse 80 01/11/25 08:59 BP 116/72 01/11/25 08:59 Pulse Ox 96 01/11/25 08:59 Oxygen Delivery Method Room Air 01/11/25 08:59 BMI result Body Mass Index 32.4 Const General: cooperative, no acute distress and tired appearing Nutritional Appearance: overweight Orientation/consciousness: patient oriented x3 HEENT Face and sinus: Yes face symmetric and Yes other (sebhorrheic dermatitis, and psoriasis all over his scalp eye brows and face) Eyes Pupils: Equal, round and reactive pupils present Neck Neck: Yes full ROM Resp Effort & Inspection: normal respiratory effort and able to speak in complete sentences Neuro Other: Decreased facial blink, mild L. hand tremor radiates to the head, no vocal tremor, no slurring of speech or hypophonia, no dyskinesias, no freezing of gait, good posture upright. General: patient oriented x3 and moves all extremities Cranial nerves: Yes Facial sensation intact/muscles of mastication intact, Yes Equal, round and reactive pupils present, Yes Normal accommodation reflex present, Yes Normal facial strength present, Yes Midline tongue present, Yes Ability to bilaterally rotate head present and Yes Ability to bilaterally elevate shoulders present Cognition (Neuro): normal cognition Gait exam (Neuro): Normal gait present Motor exam (neuro): 5/5 motor strength present throughout and Normal motor muscle tone present throughout Coordination: [id number] test normal Psych Appearance: disheveled Speech and movement: Normal speech and movement present Thought content: Normal thought content present Insight: Good insight present (Psych) Results Reviewed Results Reviewed: 04/2024 MR/MR head/brain wo con IMPRESSION: There are a few scattered nonspecific signal changes involving the supratentorial white matter. Otherwise unremarkable examination in that there is no discrete anatomic finding to provide an explanation for this patient's tremor. No evidence of acute territorial infarct or hemorrhage. Assessment & Plan Assessment & Plan (1) Tremor: Comment: Essential tremor benign. Code(s): R25.1 - Tremor, unspecified Category: Medical (2) Movement disorder: Comment: LUE rest/postural tremor, BUE L > R tone, decreased RLE foot taps, asymmetric decreased arm swing, decreased blink. 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 unknown CV insult. Pt has family h/o c/w ET, however pt's tremor s/s are not c/w a typical ET presentation. Code(s): G25.9 - Extrapyramidal and movement disorder, unspecified Category: Medical (3) Muscle cramps at night: Code(s): R25.2 - Cramp and spasm Category: Medical Plan Tremor LUE travels to head will refer to PT EEG f/h of absence seizures recently diagnosed in 19 year old daughter, will consider at future visit. Continue B12, B6 200mg, and magnesium 400mg at bedtime will also help with daily muscle spasms /cramps RLS? / PLMS? NCS/ EMG l. hand tremor and once he has the discussion with his psychiatrist re: changing medications safely from Abilify injections to other meds which work for his schizo-affective disorder, patient felt his abilify helps to control his schizo-affective symptoms and would prefer continuation of this medication. Increase water intake to 60% of body weight. Omegas daily for brain health. Melatonin 3mg to 10mg PRN to help with relaxation and induce restful sleep. Orders: Orders NE nerve conduction velocity 01/11/25 R25.2 - Cramp and spasm, R25.1 - Tremor, unspecified EEG electroencephalogram 01/11/25 Z82.0 - Family history of epilepsy and other diseases of the nervous system NE electromyogram (EMG) 01/11/25 R25.1 - Tremor, unspecified, R25.2 - Cramp and spasm PT Evaluation and Treatment 01/11/25 R25.1 - Tremor, unspecified, G25.9 - Extrapyramidal and movement disorder, unspecified Patient Instructions: Sleep Hygiene provided: set a scheduled bedtime and wake time to help regulate the circadian rhythm and balance the release of pituitary hormones. Sleep in a dark room, temperatures below 68 degrees, and no devices n bed. Limit caffeinated products 6 hours prior to bed, and limit fluids 2-4 hours prior to bed. Gentle night yoga, diffusing essential oils, and playing soft music can be relaxing. Coding Level of Care Code Est Pt Level 4 (47682) Complex EM visit Add On G2211 Diagnoses Tremor R25.1 Movement disorder G25.9 Muscle cramps at night R25.2
--- OUTSIDE RECORDS SUMMARY | 2025-01-11 09:03 | XMS_ITS | Clinical Summary ---
Author Organization [facility] Address [address] [place] [address] Care Team Providers Care Earthmoving Labourer Name Role Phone EvonnegatotatikarishmaEduard NP Primary Care Provider [phone] Source Comments PLEASE NOTE, if this patient [...] Depression 05/02/2015 Overview (05/02/2015): F/U PSYCH @ [facility] Migraine headache 12/08/2013 Overview (10/17/2014): Seen by Dr. 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 GI F/U AT [facility]. Repeat EGD 11/29/14 still with severe erosive esophagitis on high PPI use. Repeat EGD 06/16/16 = focal esophagitis limited to area GE junctio, superficial gastritis - Bxs: mod chronic gastritis, H.pylori neg, esophagus mild reflux esophagitis Iron deficiency anemia 03/31/2012 Chronic schizoaffective disorder ([facility]) 06/18 Overview (06/08/2013): DX: 2008. 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
== END 2025-01-11 09:40 | disposition home or self-care (01) ==
LOC: HO.HSMS 08:54
PROVIDERS: PCP Nurse Practitioner Family; Visit Provider Physician Assistant Medical
DX: G25.9 Extrapyramidal and movement disorder, unspecified (principal); R25.1 Tremor, unspecified; R25.2 Cramp and spasm
CPT/HCPCS: 99214; G2211

== ENCOUNTER → 2025-01-11 08:53 | Outpatient (BNVA) | payer OTHER, SELFPAY | PROVIDERS: PCP Nurse Practitioner Family; Visit Provider Physician Assistant Medical | DX: G25.9 Extrapyramidal and movement disorder, unspecified (principal); R25.1 Tremor, unspecified; R25.2 Cramp and spasm | CPT/HCPCS: 99212 ==

== ENCOUNTER 2025-01-22 09:59 | Outpatient (REF) | payer OTHER, SELFPAY ==
--- OUTSIDE RECORDS SUMMARY | 2025-01-22 10:53 | XMS_ITS | Clinical Summary ---
Author Organization [facility] Address [address] [place] [address] Care Team Providers Care Payroll Technician Name Role Phone MariamkarishmaEduard NP Primary Care Provider [phone] Source Comments PLEASE NOTE, if this patient [...] 05/02/2015 Overview (05/02/2015): F/U PSYCH @ [facility]. Migraine headache 12/08/2013 Overview (10/17/2014): Seen by Dr. 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 GI F/U AT [facility]. Repeat EGD 11/29/14 still with severe erosive esophagitis on high PPI use. Repeat EGD 06/16/16 = focal esophagitis limited to area GE junctio, superficial gastritis - Bxs: mod chronic gastritis, H.pylori neg, esophagus mild reflux esophagitis Iron deficiency anemia 03/31/2012 Chronic schizoaffective disorder ([facility]) 06/18 Overview (06/08/2013): DX: 2008. 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
[2025-01-22 11:03] LABS: Hematocrit 41.9 % (42.0-52.0); Hemoglobin 15.1 g/dl (14.0-18.0); Mean Corpuscular Hemoglobin 31.2 pg (27.0-33.0); Mean Corpuscular Volume 86.6 fL (80.0-98.0); Mean Platelet Volume 11.3 fL (9.4-12.4); Platelet Count 188 X10*3/uL (160-400); Red Blood Count 4.84 X10*6/uL (4.60-5.80); Red Cell Distribution Width 11.9 % (11.0-16.0); White Blood Count 5.2 X10*3/uL (4.8-10.8)
[2025-01-22 12:11] LABS: Creatinine Urine 188.26 mg/dL; Microalbum/Creatinine Ratio Ur 7.9 ug/mg cr (<30)
[2025-01-22 12:12] LABS: Alanine Aminotransferase 58 U/L (0-40); Albumin Level 4.6 g/dL (3.5-5.0); Alkaline Phosphatase 66 U/L (39-117); Anion Gap 12 (12-20); Aspartate Amino Transferase 33 U/L (5-37); Bilirubin Total 0.8 mg/dL (0.0-1.0); Blood Urea Nitrogen 15 mg/dL (9-16); Calcium 9.5 mg/dL (8.4-10.2); Carbon Dioxide 28 mmol/L (22-29); Chloride 106 mmol/L (96-108); Cholesterol 128 mg/dL (<200); Estimated Glomerular Filt Rate 59; Glucose Random 139 mg/dL (60-115); HDL Cholesterol 31 mg/dL (>40); Iron 107 mcg/dL (45-160); LDL Cholesterol Calculated 80 mg/dL (<100); Percent Iron Saturation 32 % (15-50); Potassium 4.1 mmol/L (3.3-5.1); Sodium 142 mmol/L (135-145); TSH reflex Free T4 3.47 uIU/mL (0.32-4.0); Total Iron Binding Capacity 339 mcg/dL (228-428); Total Protein 7.6 g/dL (6.5-8.0); Triglycerides 87 mg/dL (<150); Unsaturated Iron Binding 232 ug/dL
[2025-01-30 17:49] LABS: VITAMIN D (1,25 OH) D3 53 pg/mL; Vit D (1,25-Dihydroxy) Total 53 pg/mL (18-72); Vitamin D (1,25 OH) D2 <8 pg/mL
== END 2025-01-22 10:00 | disposition home or self-care (01) ==
LOC: HO.LAB 09:59
PROVIDERS: PCP Nurse Practitioner Family; Visit Provider Nurse Practitioner Family
DX: E53.8 Deficiency of other specified B group vitamins (principal); N18.31 Chronic kidney disease, stage 3a; R73.01 Impaired fasting glucose; E55.9 Vitamin D deficiency, unspecified; D63.1 Anemia in chronic kidney disease
CPT/HCPCS: 36415; 80053; 80061; 82043; 82570; 82652; 83540; 84443; 85027

== ENCOUNTER 2025-01-25 11:25 | Outpatient (AMB) | payer OTHER, SELFPAY ==
--- NOTE | 2025-01-25 11:50 | A.OFFPC_ITS ---
Vital Signs 01/25/25 12:00 Height 5 ft 11 in Weight 235 lb BMI 32.8 BP 112/66 Blood Pressure Location Rt brachial Position Sitting Respiration 12 Pulse 65 Pulse Source Pulse Oximeter Temp 97.5 F Temp Source Oral Pulse Oximetry (%) 96 Oxygen Delivery Method Room Air Intake Visit Reasons: 6 month 30 min routine fu labs 1 week, resched Intake Note: 6 Months routine follow up to review labs Route Sales Specialist Required: No Allergies mushroom [MUSHROOM] Allergy (Intermediate, Verified 01/25/25 12:48) SHORTNESS OF BREATH Seasonal Allergies Allergy (Intermediate, Verified 01/25/25 12:48) Unknown Medication List - Last Reconciled 01/25/25 by Aylin Pizarro, GRAPHIC COORDINATOR-BC albuterol sulfate 90 mcg/actuation 2 puffs inhalation Q4-6H PRN aripiprazole ER (Abilify Maintena) 300 mg IM Q28D benztropine 0.5 mg PO BID bupropion HCl 75 mg PO DAILY cetirizine 10 mg PO DAILY fluticasone propionate 50 mcg/actuation 2 sprays intranasal DAILY 1 month magnesium oxide 400 mg PO DAILY mecobalamin (vitamin B12) mcg sublingual melatonin 3 mg PO BEDTIME multivitamin with minerals (Daily Multivitamin-Minerals tablet) 1 tab PO DAILY omega-3 fatty acids 500 mg PO DAILY peg 3350-electrolytes 236-22.74-6.74 -5.86 gram (Golytely) 240 mL PO Q10M pyridoxine (vitamin B6) 100 mg PO 2XW sodium chloride 0.65% 2 sprays intranasal Q3H Tobacco use date assessed: 01/25/25 Dental Screening Dental Screen Date: 01/25/25 Did you have a dental visit in the last 12 months?: Yes Did you have a dental problem in the last 6 months where you did not have access to dental care?: No Was dental information given to patient?: Patient has dentist HPI HPI Comments History of Present Illness Details 44-year-old male with anemia, schizoaffe ctive disorder, MDD, generalized anxiety disorder, obesity, gout, chronic tension headaches, GERD, vitamin-D deficiency, allergic rhinitis, CKD , IFG, family hx of colon ca (father) Status post tracheostomy in 2022 due to a retropharyngeal abscess with extension into the superior mediastinum positive for strep, gastric surgery, labral tear R hip social: works at [employer]; lives in [place] Family hx: Mom 10/2024 d/t complications of norovirus; Dad colon ca Specialists ENT Psych counselor and prescriber Neurology consult 02/2024 ? neuroleptic parkinsons > check imaging + sleep study RTO 6 mo Orthopedics GI Podiatry Op[facility] Maintenance: Tdap and Flu 2023 Colon - referred to GI PSA wnl 10/2023 History of Present Illness - The patient is a 44-year-old male pres enting for a chronic disease management visit. - Chronic seasonal allergies managed on cetirizine and Flonase. - Insomnia managed with melatonin; B12 d eficiency treated with supplements. - Schizoaffective, major depressive, and generalized anxiety disorders managed with Abilify, benztropine, and bupropion. - Treated by neurology for tremors; side effects suspected from Abilify. - Prediabetes with glucose elevation; la st A1c increased from 5.9 to 6.1. - Stage 3 CKD with stable GFR; history o f elevated ALT, mild fatty liver noted on US - Psychological effects from maternal lo ss; continuing therapy. - Family history of colon cancer; colono scopy and endoscopy pending. - Facing increased cough for a few month s, w/o sob or chest pain feels like a smokers cough but i dont smoke - Anticipates neurodiagnostics for own s eizure evaluation given family history, dtr w/ absent sz. Feels he can stare off at times too Review of Systems - General: Reports increased cough. Rachid es feeling sick or having a hard time breathing. - ENT: Reports use of cetirizine and Ulices nase for seasonal allergies. - Respiratory: Reports use of albuterol as needed. Denies current difficulty br eathing. - Cardiovascular: No reports of chest pa in. - Gastrointestinal: Reports mild fatty l iver from ultrasound. - Genitourinary: Denies any new symptoms . - Neurological: Reports tremors and conc portillo for absence seizures. Denies recent seizure activity but mentions staring episodes. - Psychological: Reports feeling mentall y stable. Grieving loss of both parents. - Dermatological: has fungal L great toe nail, cared for by podiatry in the past; not better, would like re-eval. Physical Exam Awake alert NAD RRR Ins and Exp wheezing throughout No abd tenderness Fungal toe nail L great toe + tremors worse when talking about stres sful things such as of Mom Results 01/2025 normal cbc and urine microalb,alt 58, egfr 59, glucose 139, hdl low otherwise normal Neuro consult reviewed GI consult reviewed Labs: - Glucose: 139 (elevated). - A1c: Increased from 5.9 to 6.1. - GFR: Stable at 59 (CKD stage 3). - ALT: 58 (elevated). Tests and Diagnostics: - Ultrasound: Mild fatty liver. - EEG, EMG scheduled in February. Discussion Notes I discussed the patient?s chronic conditions, including seasonal allergies, schizoaffective disorder, and vitamin B12 deficiency. Advised continuation of current medications due to stable conditions. Addressed tremors and decided on potential neurodiagnostic testing to explore causes. Emphasized diet modifications for prediabetes and mild hepatic steatosis. Discussed recent transparent and emotional challenges following familial losses. Suggested an order for a chest X-ray due to frequent cough and audible wheezing. Did not RX Albuterol d/t tremors. Recommended grief counseling as part of the ongoing mental health support. Emphasized the importance of screening due to family history of colon cancer. Reviewed patient?s upcoming neuro evaluations for absence seizures. Agreed to follow up in May for a comprehensive physical examination and routine lab work. Assessment and Plan 1. Chronic seasonal allergic rhinitis - Continue cetirizine and Flonase. 2. Vitamin B12 deficiency - Continue supplementation. 3. Insomnia - Use melatonin as needed. 4. Schizoaffective disorder, Major depre ssive disorder, and Generalized anxiety disorder - Maintain current medications & care w/ counselor and prescriber 5. Tremor - Neurodiagnostic tests scheduled. 6. Prediabetes - Dietary counseling and lifestyle modif ication. declined sales representative [employer] referral 7. Chronic kidney disease stage 3, stabl e - Monitor renal function. 8. Elevated liver enzymes and Mild fatty liver - Dietary changes discussed, declined nu tritionist. FU with GI 9. Psychosocial factors - Continue therapy for grief. 10. Absence seizures in family history - Await EEG results for further assessme nt. 11. Respiratory symptoms - Chest X-ray ordered. 12. Podiatric issues - Podiatry referral placed for eval and tx 13. Preventative Care - Await colonoscopy scheduling. Patient Instructions - Continue taking your allergy and menta l health medications as prescribed. - Manage diet to lower sugar intake and consider seeing a documentation supervisor. - Follow up with neurology for tremor an d potential seizure evaluation. - Complete scheduled tests and referrals , including podiatry. - Monitor for any changes in your coughi ng or breathing and get the chest X-ray done promptly. - Keep going to therapy sessions for [facility] support. - Await procedure scheduling and keep an eye out for new dates. - Follow up in May for physical exam and lab work. Consent Patient was informed and verbally consented to the use of an ambient scribe for clinic note documentation during this visit. Total time spent caring for the patient today was 45 minutes. This includes time spent before the visit reviewing the chart, time spent during the visit, and time spent after the visit on documentation, reviewing laboratory results, diagnostic imaging, medications, performing a medically necessary evaluation, counseling on diagnoses, care coordination, ordering appropriate tests, ordering appropriate medications, review of tests performed by other providers, reporting test results with the patient, communication with other healthcare pro viders. [facility] Medical History Dysphagia Benign essential tremor Left knee pain History of retropharyngeal abscess Tremor of left hand Right anterior knee pain Surgical History S/P emergency tracheotomy for assistance in breathing History of surgery Labral tear of right hip joint Family History Father Colon cancer Alcoholism Mother Arthritis Daughter GERD (gastroesophageal reflux disease) Family/Other FH: mental illness Schizo affective schizophrenia Brother In good health Social History Household Members: Other Household Members Other:: [employer] Both parents involved: No Caregiver staying overnight: No Housing: Other ([facility]) Are you a primary clinical manager home care to a significant other at home: No Do you presently have visiting nurse or other home services: No 75 years or older and lives alone: No Alcohol intake: never Patient Tobacco Use Status: Never used Tobacco e-Cigarette/Vaping Use: Never Used Second Hand Smoke Exposure: No service: No Current occupational status: employed 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 1. Little interest or pleasure in doing things: not at all 2. Feeling down, depressed, or hopeless: not at all 3. Trouble falling or staying asleep, or sleeping too much: not at all 4. Feeling tired or having little energy: not at all 5. Poor appetite or overeating: not at all 6. Feeling bad about yourself - or that you are a failure or have let yourself or your family down: not at all 7. Trouble concentrating on things, such as reading the newspaper or watching television: not at all 8. Moving or speaking so slowly that other people could have noticed. Or the opposite - being so fidgety or restless that you have been moving around a lot more than usual: not at all 9. Thoughts that you would be better off or of hurting yourself in some way: not at all Total score: 0 Depression Screening Interpretation: Negative Depression Screening Done: Yes 64562 - PHQ-9 Billing: Yes Source: Developed by Drs. Anderson Mijares, Shanda Sloan, Gurpreet Cabezas and colleagues, with an educational sandra from [employer]. Thrive Questionnaire Date Thrive assessed: 01/25/25 I am a: Patient What is your living situation today?: I have a steady place to live Within the past 12 months, did the food you bought not last and you didn't have the money to get more?: I choose not to answer this question Within the past 12 months, did you worry whether your food would run out before you got money to buy more?: I choose not to answer this question Do you have trouble paying for medicines?: No Do you have trouble getting transportation to medical appointments?: I choose not to answer this question Do you have trouble paying your heating and electricity bill?: I choose not to answer this question Do you have trouble taking care of your child, family member or friend?: I choose not to answer this question Do you have trouble with day-to-day activities such as bathing, preparing meals, shopping, managing finances, etc.?: I choose not to answer this question Are you currently unemployed and looking for a job?: I choose not to answer this question Are you interested in more education?: I choose not to answer this question Please select the resources that you would like help with: None Currently or been in a relationship where the following occur: I choose not to answer THRIVE Score: 0 AUDIT C Alcohol Use Questionnaire (AUDIT-C) 1. How often do you have a drink containing alcohol?: Never 3. How often do you have six or more drinks on one occasion?: Never Total Score: 0 Score Reviewed/Action Taken: Yes NIRU-7 AMB Questionnaire NIRU-7 Date NIRU - 7 assessed: 01/25/25 Feeling nervous, anxious, or on edge: 0 = Not at all Not being able to stop or control worryin = Not at all Worrying too much about different things: 0 = Not at all Trouble relaxin = Not at all Being so restless that it is hard to sit still: 0 = Not at all Becoming easily annoyed or irritable: 0 = Not at all Feeling afraid as if something awful might happen: 0 = Not at all Total NIRU-7 score (0-4 normal; 5-9 mild; 10-14 moderate; 15-21 severe): 0 Source: Developed by Drs. Anderson Mijares, Shanda Sloan, Gurpreet Cabezas and colleagues, with an educational sandra from [employer]. NIRU-7 Assessment Billing NIRU-7 Assessment Tool: NIRU-7 Assessment 37155 Physical exam (Primary Care) Vital Signs: Last Vital Signs Temp 97.5 F 01/25/25 12:00 Pulse 65 01/25/25 12:00 Resp 12 01/25/25 12:00 BP 112/66 01/25/25 12:00 Pulse Ox 96 01/25/25 12:00 Oxygen Delivery Method Room Air 01/25/25 12:00 BMI result Body Mass Index 32.8 BMI Assessment/Plan discussion: High BMI High, discussed plan: lifestyle Tobacco/Smoking Status: Tobacco use Status Tobacco use date assessed 01/25/25 01/25/25 11:52 Patient Tobacco Use Status Never used Tobacco 01/25/25 11:52 e-Cigarette/Vaping Use Never Used 01/25/25 11:52 PHQ-9: PHQ-9 Score PHQ-9: Total score 0 01/25/25 12:52 Depression Screening Interpretation: Negative Thrive Assessment: Date of Thrive Assessment Date Thrive assessed 01/25/25 01/25/25 11:52 Currently or been in a relationship where the following occur: I choose not to answer Results AMB Hemoglobin A1c AMB Hemoglobin A1c 6.1 % Last Edit by Nikhil Cooper MA on 01/25/25 13:15 Results Reviewed Results Reviewed: Laboratory Last Values Hgb A1c (Clinic) 6.1 % (4.0-6.0) H 01/25/25 13:[address] [address] Ultrasound Report Signed Patient: Terry Quintanilla MR#: [id number] : 1980 Acct:[id number] Age/Sex: 44 / M ADM Date: 12/28/24 Loc: HO.US Attending Dr: Latoya Weber MD Ordering Physician: Latoya Weber MD Date of Service: 12/28/24 Procedure(s): US abdomen complete Accession Number(s): [id number] cc: Latoya Weber MD~ CLINICAL HISTORY: R79.89 - Other specified abnormal findings of blood chemistry US abdomen complete Comparison: None Findings: Technical difficulties secondary to overlying bowel gas. The majority of the pancreas is obscured from visualization by the overlying bowel gas. The visualized aorta and inferior vena cava are normal caliber. The liver is normal in size with steatosis. There is no intrahepatic bile duct dilatation. The common duct is 2 mm in diameter. The gallbladder is normal. There is no sonographic Pedraza sign. The main portal vein is antegrade. The right kidney is 10 cm in length. The left kidney is 10.5 cm in length. The spleen is normal. No ascites. IMPRESSION: No acute findings. Hepatic steatosis This document has been electronically signed by: Espinoza Dale MD on 12/29/2024 05:01:42 Coding Level of Care Code Est Pt Level 5 (11484) Complex EM visit Add On G2211 Diagnoses Seasonal allergic rhinitis due to other allergic trigger J30.89 Allergic rhinitis seasonality: seasonal Allergic rhinitis trigger: other Anemia, unspecified type D64.9 Anemia type: unspecified type B12 deficiency E53.8 Family history of colon cancer Z80.0 NIRU (generalized anxiety disorder) F41.1 IFG (impaired fasting glucose) R73.01 Moderate episode of recurrent major depressive disorder F33.1 Major depression episode severity: moderate Schizoaffective disorder, bipolar type F25.0 Schizoaffective disorder type: bipolar Vitamin D deficiency E55.9 Tremor R25.1 Fatty liver K76.0 Wheezing R06.2 Onychomycosis B35.1 Obesity (BMI 30-39.9) E66.9 Stage 3a chronic kidney disease N18.31 Chronic kidney disease stage 3 subtype: stage 3a (GFR 45-59) Elevated LFTs R79.89 Family history of seizure disorder Z82.0 Movement disorder G25.9 Additional Codes NIRU-7 Assessment Billing - NIRU-7 Assessment Tool: NIRU-7 Assessment 41049 ([id number]) PHQ-9 - 98995 - PHQ-9 Billing: Yes ([id number]) Assessment & Plan Assessment & Plan (1) Allergic rhinitis: Comment: Managed with Flonase. Also taking cetirizine. Continue these medications as they are controlling his symptoms Code(s): J30.9 - Allergic rhinitis, unspecified Category: Medical Qualifiers: Allergic rhinitis seasonality: seasonal Allergic rhinitis trigger: other Qualified Code(s): J30.89 - Other allergic rhinitis (2) Anemia: Comment: noted on labs with normal Iron and low B12. Hgb trending Plan: cont daily MVI with minerals b12 1000mcg Qd Code(s): D64.9 - Anemia, unspecified Category: Medical Qualifiers: Anemia type: unspecified type Qualified Code(s): D64.9 - Anemia, unspecified (3) B12 deficiency: Code(s): E53.8 - Deficiency of other specified B group vitamins Category: Medical (4) Family history of colon cancer: Comment: DAD Code(s): Z80.0 - Family history of malignant neoplasm of digestive organs Category: Medical (5) NIRU (generalized anxiety disorder): Comment: Currently managed on Abilify injectable as well as p.o., and bupropion by outside prescriber at [facility]. Also active with Psychiatry. Encouraged to follow up Code(s): F41.1 - Generalized anxiety disorder Category: Medical (6) IFG (impaired fasting glucose): Comment: lifestyle mods & monitoring repeat labs in 3 months to include a1c Code(s): R73.01 - Impaired fasting glucose Category: Medical (7) MDD (major depressive disorder), recurrent episode: Comment: Currently managed on Abilify injectable as well as p.o., and bupropion by outside prescriber at [facility]. Also active with Psychiatry. Encouraged to follow up Code(s): F33.9 - Major depressive disorder, recurrent, unspecified Category: Medical Qualifiers: Major depression episode severity: moderate Qualified Code(s): F33.1 - Major depressive disorder, recurrent, moderate (8) Schizoaffective disorder: Comment: Currently managed on Abilify injectable as well as p.o., and bupropion by outside prescriber at [facility]. Also active with Psychiatry. Encouraged to follow up Code(s): F25.9 - Schizoaffective disorder, unspecified Category: Medical Qualifiers: Schizoaffective disorder type: bipolar Qualified Code(s): F25.0 - Schizoaffective disorder, bipolar type (9) Vitamin D deficiency: Comment: was on vitamin D3 50 mcgs p.o. daily vitamin-D level > 40. started on MVI Cont MVI repeat Vit D annually Code(s): E55.9 - Vitamin D deficiency, unspecified Category: Medical (10) Tremor: Comment: Essential tremor benign. Code(s): R25.1 - Tremor, unspecified Category: Medical (11) Fatty liver: Comment: [place] [id number] Ultrasound Report Signed Patient: Terry Quintanilla MR#: [id number] : 1980 Acct:[id number] Age/Sex: 44 / M ADM Date: 12/28/24 Loc: HO.US Attending Dr: Latoya Weber MD Ordering Physician: Latoya Weber MD Date of Service: 12/28/24 Procedure(s): US abdomen complete Accession Number(s): [id number] cc: Latoya Weber MD~ CLINICAL HISTORY: R79.89 - Other specified abnormal findings of blood chemistry US abdomen complete Comparison: None Findings: Technical difficulties secondary to overlying bowel gas. The majority of the pancreas is obscured from visualization by the overlying bowel gas. The visualized aorta and inferior vena cava are normal caliber. The liver is normal in size with steatosis. There is no intrahepatic bile duct dilatation. The common duct is 2 mm in diameter. The gallbladder is normal. There is no sonographic Pedraza sign. The main portal vein is antegrade. The right kidney is 10 cm in length. The left kidney is 10.5 cm in length. The spleen is normal. No ascites. IMPRESSION: No acute findings. Hepatic steatosis This document has been electronically signed by: Espinoza Dale MD on 12/29/2024 05:01:42 Code(s): K76.0 - Fatty (change of) liver, not elsewhere classified Category: Medical (12) Wheezing: Code(s): R06.2 - Wheezing Category: Medical (13) Onychomycosis: Comment: Affecting left great toenail. refer to podiatry for further evaluation and treatment Code(s): B35.1 - Tinea unguium Category: Medical (14) Obesity (BMI 30-39.9): Code(s): E66.9 - Obesity, unspecified Category: Medical (15) CKD (chronic kidney disease) stage 3, GFR 30-59 ml/min: Comment: egfr 56, avoid nephrotoxic agents, monitor, hydrate Code(s): N18.30 - Chronic kidney disease, stage 3 unspecified Category: Medical Qualifiers: Chronic kidney disease stage 3 subtype: stage 3a (GFR 45-59) Qualified Code(s): N18.31 - Chronic kidney disease, stage 3a (16) Elevated LFTs: Code(s): R79.89 - Other specified abnormal findings of blood chemistry Category: Medical (17) Family history of seizure disorder: Comment: dtr Code(s): Z82.0 - Family history of epilepsy and other diseases of the nervous system Category: Medical (18) Movement disorder: Comment: LUE rest/postural tremor, BUE L > R tone, decreased RLE foot taps, asymmetric decreased arm swing, decreased blink. 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 unknown CV insult. Pt has family h/o c/w ET, however pt's tremor s/s are not c/w a typical ET presentation. Code(s): G25.9 - Extrapyramidal and movement disorder, unspecified Category: Medical Plan , Orders: Orders Complete Blood Count no Diff 05/23/25 K76.0 - Fatty (change of) liver, not elsewhere classified, R73.01 - Impaired fasting glucose, Z00.00 - Encounter for general adult medical examination without abnormal findings Comprehensive Met. Panel 05/23/25 K76.0 - Fatty (change of) liver, not elsewhere classified, R73.01 - Impaired fasting glucose, Z00.00 - Encounter for general adult medical examination without abnormal findings IRON PROFILE 05/23/25 K76.0 - Fatty (change of) liver, not elsewhere classified, R73.01 - Impaired fasting glucose, Z00.00 - Encounter for general adult medical examination without abnormal findings Microalbumin, Random (w Creat) 05/23/25 K76.0 - Fatty (change of) liver, not elsewhere classified, R73.01 - Impaired fasting glucose, Z00.00 - Encounter for general adult medical examination without abnormal findings Vitamin D 25-OH Total 05/23/25 K76.0 - Fatty (change of) liver, not elsewhere classified, R73.01 - Impaired fasting glucose, Z00.00 - Encounter for general adult medical examination without abnormal findings AMB Hemoglobin A1c Today Z13.9 - Encounter for screening, unspecified XR chest 2V Today R06.2 - Wheezing Ferritin 05/23/25 K76.0 - Fatty (change of) liver, not elsewhere classified, R73.01 - Impaired fasting glucose, Z00.00 - Encounter for general adult medical examination without abnormal findings Lipid Panel 05/23/25 K76.0 - Fatty (change of) liver, not elsewhere classified, R73.01 - Impaired fasting glucose, Z00.00 - Encounter for general adult medical examination without abnormal findings TSH reflex Free T4 05/23/25 K76.0 - Fatty (change of) liver, not elsewhere classified, R73.01 - Impaired fasting glucose, Z00.00 - Encounter for general adult medical examination without abnormal findings Vitamin B12 and Folate 05/23/25 K76.0 - Fatty (change of) liver, not elsewhere classified, R73.01 - Impaired fasting glucose, Z00.00 - Encounter for general adult medical examination without abnormal findings PSA, Ultra Sensitive 05/23/25 K76.0 - Fatty (change of) liver, not elsewhere classified, R73.01 - Impaired fasting glucose, Z00.00 - Encounter for general adult medical examination without abnormal findings Referrals Podiatry Referral B35.1 - Tinea unguium
[2025-01-25 12:00] VITALS: BP 112/66; PULSE 65; RESP 12; TEMP 36.4; O2SAT 96; BMI 32.8
--- OUTSIDE RECORDS SUMMARY | 2025-01-25 13:38 | XMS_ITS | Clinical Summary ---
Author Organization [facility] Address [address] [place] [address] Care Team Providers Care All Source Collection Manager Name Role Phone EvonnegatotatikarishmaEduard NP Primary Care Provider [phone] Source Comments PLEASE NOTE, if this patient [...] Depression 05/02/2015 Overview (05/02/2015): F/U PSYCH @ [facility]. Migraine headache 12/08/2013 Overview (10/17/2014): Seen by Dr. 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 GI F/U AT [facility]. Repeat EGD 11/29/14 still with severe erosive esophagitis on high PPI use. Repeat EGD 06/16/16 = focal esophagitis limited to area GE junctio, superficial gastritis - Bxs: mod chronic gastritis, H.pylori neg, esophagus mild reflux esophagitis Iron deficiency anemia 03/31/2012 Chronic schizoaffective disorder ([facility]) 06/18 Overview (06/08/2013): DX: 2008. 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
== END 2025-01-25 13:17 | disposition home or self-care (01) ==
LOC: HO.HMCFM 11:26
PROVIDERS: PCP Nurse Practitioner Family; Visit Provider Nurse Practitioner Family
DX: J30.89 Other allergic rhinitis (principal); F33.1 Major depressive disorder, recurrent, moderate; F25.0 Schizoaffective disorder, bipolar type; N18.31 Chronic kidney disease, stage 3a; D64.9 Anemia, unspecified; E53.8 Deficiency of other specified B group vitamins; F41.1 Generalized anxiety disorder; Z80.0 Family history of malignant neoplasm of digestive organs; R73.01 Impaired fasting glucose; E55.9 Vitamin D deficiency, unspecified; R25.1 Tremor, unspecified; K76.0 Fatty (change of) liver, not elsewhere classified

== ENCOUNTER → 2025-01-25 11:25 | Outpatient (BNVA) | payer OTHER, SELFPAY | PROVIDERS: PCP Nurse Practitioner Family; Visit Provider Nurse Practitioner Family | DX: K21.9 Gastro-esophageal reflux disease without esophagitis (principal); D64.9 Anemia, unspecified; F25.9 Schizoaffective disorder, unspecified; F41.1 Generalized anxiety disorder; E66.9 Obesity, unspecified; R51.9 Headache, unspecified; E55.9 Vitamin D deficiency, unspecified; J30.9 Allergic rhinitis, unspecified; R73.03 Prediabetes; J30.89 Other allergic rhinitis; E53.0 Riboflavin deficiency; G47.00 Insomnia, unspecified; E53.8 Deficiency of other specified B group vitamins; R73.01 Impaired fasting glucose; F33.1 Major depressive disorder, recurrent, moderate; F25.0 Schizoaffective disorder, bipolar type; K76.0 Fatty (change of) liver, not elsewhere classified; R06.2 Wheezing; B35.1 Tinea unguium; N18.31 Chronic kidney disease, stage 3a; R79.89 Other specified abnormal findings of blood chemistry; G25.9 Extrapyramidal and movement disorder, unspecified; Z82.0 Family history of epilepsy and other diseases of the nervous system; Z80.0 Family history of malignant neoplasm of digestive organs; Z68.32 Body mass index [BMI] 32.0-32.9, adult | CPT/HCPCS: 83036; 96127; 99212 ==

== ENCOUNTER 2025-02-22 08:06 | Outpatient (REF) | payer OTHER, SELFPAY ==
--- NOTE | 2025-02-22 08:09 | EEG_ITS ---
This is a 16 channel EEG with an EKG lead. Patient is reported awake during the tracing. Background EEG rhythm is about 10 hertz 5-70 microvolt posteriorly lower amplitude fast anteriorly. Photic stimulation does not produce any significant abnormality. Hyperventilation is not performed. Cardiac lead does not reveal any significant abnormality. No sharp wave spikes or paroxysmal tendency noted. Impression: Unremarkable EEG. MTDD
--- OUTSIDE RECORDS SUMMARY | 2025-02-22 08:09 | XMS_ITS | Clinical Summary ---
Author Organization [facility] Address [address] [place] [address] Care Team Providers Care Grommet Man Name Role Phone EvonnegatotatikarishmaEduard NP Primary Care Provider [phone] Source Comments PLEASE NOTE, if this patient [...] Depression 05/02/2015 Overview (05/02/2015): F/U PSYCH @ [facility]. Migraine headache 12/08/2013 Overview (10/17/2014): Seen by Dr. 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 GI F/U AT [facility]. Repeat EGD 11/29/14 still with severe erosive esophagitis on high PPI use. Repeat EGD 06/16/16 = focal esophagitis limited to area GE junctio, superficial gastritis - Bxs: mod chronic gastritis, H.pylori neg, esophagus mild reflux esophagitis Iron deficiency anemia 03/31/2012 Chronic schizoaffective disorder ([facility]) 06/18/2010 Overview (06/08/2013): DX: 2008. 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
== END 2025-02-22 08:07 | disposition home or self-care (01) ==
LOC: HO.NEURO 08:06
PROVIDERS: PCP Nurse Practitioner Family; Visit Provider Physician Assistant Medical
DX: Z13.858 Encounter for screening for other nervous system disorders (principal); Z82.0 Family history of epilepsy and other diseases of the nervous system
CPT/HCPCS: 95816

== ENCOUNTER → 2025-02-22 08:06 | Outpatient (BNV) | payer OTHER, SELFPAY | PROVIDERS: PCP Nurse Practitioner Family; Visit Provider Psychiatry & Neurology Neurology | DX: Z82.0 Family history of epilepsy and other diseases of the nervous system (principal) ==

== ENCOUNTER 2025-02-24 22:25 | Emergency (ER) | payer OTHER, SELFPAY ==
--- NOTE | ~2025-02-24 | XR_ITS ---
CLINICAL HISTORY: pain 3 view right foot Comparison: None provided Findings: No fractures or dislocations. No significant loss of joint space, osteophytes, or erosions. Superior calcaneal enthesophyte. No ankle effusion. No radiopaque foreign body. IMPRESSION: 1. Superior calcaneal spur. No acute fracture or significant degenerative change. This document has been electronically signed by: Annia Gary MD on 02/25/2025 03:52:14
[2025-02-24 22:43] VITALS: BP 112/71; PULSE 69; RESP 16; TEMP 36.4; O2SAT 95; BMI 27.9
--- OUTSIDE RECORDS SUMMARY | 2025-02-25 00:48 | XMS_ITS | Clinical Summary ---
Author Organization [facility] Address [address] [place] [address] Care Team Providers Care Camp Tender Name Role Phone EvonnegatotatikarishmaEduard NP Primary Care Provider [phone] Source Comments PLEASE NOTE, if this patient [...] Depression 05/02/2015 Overview (05/02/2015): [facility]. Migraine headache 12/08/2013 Overview (10/17/2014): Seen by Dr. 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 GI F/U AT [facility]. Repeat EGD 11/29/14 still with severe erosive esophagitis on high PPI use. Repeat EGD 06/16/16 = focal esophagitis limited to area GE junctio, superficial gastritis - Bxs: mod chronic gastritis, H.pylori neg, esophagus mild reflux esophagitis Iron deficiency anemia 03/31/2012 Chronic schizoaffective disorder ([facility]) 06/18/2010 Overview (06/08/2013): DX: 2008. 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
--- NOTE | 2025-02-25 02:36 | ED.GENADULT ---
HPI - General Adult General Chief complaint: Extremity Injury, Lower Stated complaint: right foot pain Time Seen by Provider: 02/25/25 00:56 Source: patient Limitations: no limitations History of Present Illness ED Provider: Suyapa Coon PA-C HPI narrative: 44-year-old male with a history of schizoaffective disorder, anxiety, depression, GERD, gout, benign essential tremor, asthma who presents with right foot pain x2 days. Pain most prominent over posterior heel, worse with a attempts to bear weight. Denies redness, warmth or swelling. Denies preceding trauma. Related Data Home Medications ?Medication ?Instructions ?Recorded ?Confirmed sodium chloride 0.65 % nasal spray 2 spray intranasal Q3H 08/13/20 01/25/25 aerosol bupropion HCl 75 mg tablet 75 mg PO DAILY 10/22/23 01/25/25 aripiprazole 300 mg suspension, 300 mg IM Q28D 03/07/24 01/25/25 extended rel. intramuscular syringe (Cesar Kwok) benztropine 0.5 mg tablet 0.5 mg PO BID 06/12/24 01/25/25 magnesium oxide 400 mg (241.3 mg 400 mg PO DAILY muscle spasm 12/25/24 01/25/25 magnesium) tablet mecobalamin (vitamin B12) 1,000 mcg sublingual 12/25/24 01/25/25 mcg disintegrating tablet,sublingual Previous Rx's ?Medication ?Instructions ?Recorded cetirizine 10 mg tablet 10 mg PO DAILY #28 tabs 02/08/21 fluticasone propionate 50 2 spray intranasal DAILY 1 month 06/13/21 mcg/actuation nasal #16 grams spray,suspension multivitamin with minerals (Daily 1 tab PO DAILY #90 tabs 11/12/23 Multivitamin-Minerals tablet) albuterol sulfate 90 mcg/actuation 2 puff inhalation Q4-6H PRN 04/04/24 aerosol inhaler shortness of breath or wheezing #6.7 grams melatonin 3 mg tablet 3 mg PO BEDTIME #30 tabs 08/30/24 omega-3 fatty acids 500 mg capsule 500 mg PO DAILY #30 caps 08/30/24 pyridoxine (vitamin B6) 100 mg 100 mg PO 2XW #30 tabs 08/30/24 tablet peg 3350-electrolytes 236 240 ml PO Q10M colonoscopy #4,000 12/25/24 gram-22.74 gram-6.74 gram-5.86 mL gram solution (Golytely) methylprednisolone 4 mg tablets in 4 mg PO QAM #21 ea 02/25/25 a dose pack (Medrol (Suresh)) Allergies Allergy/AdvReac Type Severity Reaction Status Date / Time mushroom (MUSHROOM) Allergy Intermediate SHORTNESS Verified 02/24/25 22:44 OF BREATH Seasonal Allergies Allergy Intermediate Unknown Verified 02/24/25 22:44 Review of Systems Review of Systems: Yes all other systems are reviewed and are negative Constitutional: Constitutional: Denies fatigue and Denies fever(s) Musculoskeletal: Musculoskeletal: Reports arthralgias and Denies joint swelling Integumentary/Breasts: Skin/Breast: Denies erythema Endocrine: Endocrine: Denies fatigue PMFSH Past Medical History Attestation statement: The following information was validated with the patient. Medical History Dysphagia Benign essential tremor Left knee pain History of retropharyngeal abscess Tremor of left hand Right anterior knee pain Surgical History S/P emergency tracheotomy for assistance in breathing History of surgery Labral tear of right hip joint Family History Family History Father Colon cancer Alcoholism Mother Arthritis Daughter GERD (gastroesophageal reflux disease) Family/Other FH: mental illness Schizo affective schizophrenia Brother In good health Social History Social History Household Members: Other Household Members Other:: [facility] [employer] [facility] Housing: Other ([facility]) Are you a primary director medicare sales to a significant other at home: No Do you presently have visiting nurse or other home services: No Alcohol intake: never Patient Tobacco Use Status: Never used Tobacco Smoked in Last 30 Days: No e-Cigarette/Vaping Use: Never Used Second Hand Smoke Exposure: No Use of substances other than those prescribed or required for medical reasons: No Advance Directives: No Advance Directives Information Provided: No Do you have a plan to hurt others: No Plan service: No Current occupational status: employed 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 Current occupational exposures/hazards: No Sexual orientation: Straight/Heterosexual Gender identity: Male Cognitive needs: No Hearing needs: No Vision needs: Yes Physical Exam ED Vital Signs: Vital Signs - 24 hr 02/24/25 22:43 Temperature 97.6 F Pulse Rate 69 Respiratory Rate 16 Blood Pressure 112/71 Pulse Oximetry 95 Oxygen Delivery Method Room Air BMI result Body Mass Index 27.9 Const Other: Alert Orientation/consciousness: patient oriented x3 Resp Effort & Inspection: normal respiratory effort Cardio Other: Normal peripheral perfusion Skin Other: Warm dry no rash Neuro General: patient oriented x3, gait normal, no focal motor deficits and CN's II-XI intact bilaterally Extrem Other: Full flexion and extension from the right ankle, no deformity noted over the foot, no warmth or erythema no swelling Psych Other: Cooperative Medications Administered Discontinued Medications Generic Name Dose Route Start Last Admin Trade Name Freq PRN Reason Stop Dose Admin Ketorolac Tromethamine 15 mg 02/25/25 01:09 02/25/25 01:25 Ketorolac Tromethamine 15 Mg/Ml Vial IM 02/25/25 01:10 15 mg ONCE ONE Administration Medical Decision Making Medical Decision Making MDM Narrative: 44-year-old male with a history of schizoaffective disorder, anxiety, depression, GERD, gout, benign essential tremor, asthma who presents with right foot pain x2 days. Pain most prominent over posterior heel, worse with a attempts to bear weight. Denies redness, warmth or swelling. Denies preceding trauma. Problem: Psychiatric illness , gout History: Per patient I have considered the following differential diagnoses: Gout exacerbation, septic joint, fracture, dislocation, sprain, plantar fasciitis, arthritis, heel spur Plan: X-ray pending. He has no exam findings that are concerning for either a septic joint or potential gout exacerbation. Given distribution of discomfort, this is likely plantar fasciitis, he may have a heel spur. We will be giving Toradol for his discomfort I have independently reviewed the following tests: X-ray right foot: Heel spur noted per my read, no fracture or dislocation Discharge Plan Discharge Clinical Impression: Heel spur Qualifiers: Laterality: right Qualified Code(s): M77.31 - Calcaneal spur, right foot Patient Disposition: Home, Self-Care Instructions: Heel Spur (ED) Additional Instructions: You were found to have a heel spur. See home care instructions. Use the medrol as directed for your discomfort, take this medication with food. I am sending you with a contact for our Podiatry Service. You can call tomorrow to make a follow up appointment. Bear weight as tolerated. Use the crutches as needed. You need to wear a supportive shoe, such as a running sneaker. Prescriptions: New methylprednisolone [Medrol (Suresh)] 4 mg tablets,dose pack 4 mg PO QAM Qty: 21 0RF Rx Instructions: Take per package instructions No Action cetirizine 10 mg tablet 10 mg PO DAILY Qty: 28 3RF fluticasone propionate 50 mcg/actuation spray,suspension 2 spray intranasal DAILY 30 Days Qty: 16 5RF Rx Instructions: administer into each nostril albuterol sulfate 90 mcg/actuation HFA aerosol inhaler 2 puff inhalation Q4-6H PRN (Reason: shortness of breath or wheezing) Qty: 6.7 0RF sodium chloride 0.65 % aerosol,spray 2 spray intranasal Q3H bupropion HCl 75 mg tablet 75 mg PO DAILY Patient Comments: Patient to call to confirm dose Rx Instructions: administer 6 hours apart Daily Multivitamin-Minerals Tablet 1 tab PO DAILY Qty: 90 3RF Rx Instructions: administer with a meal melatonin 3 mg tablet 3 mg PO BEDTIME Qty: 30 3RF pyridoxine (vitamin B6) 100 mg tablet 100 mg PO 2XW Qty: 30 1RF omega-3 fatty acids 500 mg capsule 500 mg PO DAILY Qty: 30 3RF benztropine 0.5 mg tablet 0.5 mg PO BID magnesium oxide 400 mg (241.3 mg magnesium) tablet 400 mg PO DAILY mecobalamin (vitamin B12) 1,000 mcg tablet,disintegrating sublingual peg 3350-electrolytes [Golytely] 236-22.74-6.74 -5.86 gram recon soln 240 ml PO Q10M Qty: 4000 0RF Rx Instructions: as per split prep instructions, until fecal effluent is clear Abilify Maintena 300 mg suspension,extended rel syring 300 mg IM Q28D Referrals: Kailee Stallworth DPM [Physician, Podiatry] Referral Note: heel spur Stand Alone Forms: Work/School Release Print Language: Belgian
[2025-02-25 03:04] VITALS: BP 131/82; PULSE 79; RESP 16; TEMP 36.8; O2SAT 98
[2025-02-25 03:05] VITALS: BP 131/82; PULSE 79; RESP 16; TEMP 36.8; O2SAT 98
--- NOTE | 2025-02-25 03:05 | PC.NURSE ---
pt did not want crutches at this time, tamia teran aware
== END 2025-02-25 03:05 | disposition home or self-care (01) ==
PROVIDERS: Emergency Provider Emergency Medicine; PCP Nurse Practitioner Family
DX: M77.31 Calcaneal spur, right foot (principal); M79.671 Pain in right foot
CPT/HCPCS: 73630; 96372; 99284; J1885

== ENCOUNTER → 2025-02-25 01:09 | Outpatient (BNV) | payer OTHER, SELFPAY | PROVIDERS: Emergency Provider Emergency Medicine; PCP Nurse Practitioner Family; Visit Provider Radiology Diagnostic Radiology | DX: M77.31 Calcaneal spur, right foot (principal) | CPT/HCPCS: 73630 ==

== ENCOUNTER 2025-03-13 09:56 | Outpatient (REF) | payer OTHER, SELFPAY ==
--- NOTE | 2025-03-13 | EMG_ITS ---
Please see the attached neurophysiology report MTDD
--- OUTSIDE RECORDS SUMMARY | 2025-03-13 10:47 | XMS_ITS | Clinical Summary ---
Author Organization [facility] Address [address] [place] [address] Care Team Providers Care Medart Operator Name Role Phone EvonnegatotatikarishmaEduard NP Primary Care Provider [phone] Source Comments PLEASE NOTE, if this patient [...] Depression 05/02/2015 Overview (05/02/2015): F[facility]U PSYCH @ [facility]. Migraine headache 12/08/2013 Overview (10/17/2014): Seen by Dr. 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 GI F/U AT [facility]. Repeat EGD 11/29/14 still with severe erosive esophagitis on high PPI use. Repeat EGD 06/16/16 = focal esophagitis limited to area GE junctio, superficial gastritis - Bxs: mod chronic gastritis, H.pylori neg, esophagus mild reflux esophagitis Iron deficiency anemia 03/31/2012 Chronic schizoaffective disorder ([facility]) 06/18/2010 Overview (06/08/2013): DX: 2008. ON PSYCH F/U. Insomnia 06/18/2010 Overview (06/08/2013): ON PSYCH F/U. Right hip pain Resolved Problems Problem Noted Date Diagnosed Date Resolved Date Right knee pain 06/08/2013 12/21/2016 Vitamin B12 deficiency anemia 03/31/2012 01/04/2014 Immunizations Immunization Administration Dates Next Due Flu, Preservative Free 08/02/2017,05/19/2016 Hep B, Adult/Adol ([id number]/RECOMBIVAX-ADULT) 04/28/2011 INFLUENZA, SEASONAL, INJECTABLE 07/27/2014,06/08,09/28/2012 Family History Medical History Relation Name Comments Cancer Father COLON Diabetes Father Hypertension Father Diabetes Mother Hypertension Mother Cancer Paternal Grandmother BREAST CA Heart Problems Paternal Grandmother [place] Relation Name Status Comments Father Alive Mother [...] 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
== END 2025-03-13 09:57 | disposition home or self-care (01) ==
LOC: HO.NEURO 09:56
PROVIDERS: PCP Nurse Practitioner Family; Visit Provider Physician Assistant Medical
DX: R25.1 Tremor, unspecified (principal); R25.2 Cramp and spasm
CPT/HCPCS: 95886; 95910

== ENCOUNTER → 2025-03-13 10:00 | Outpatient (BNV) | payer OTHER, SELFPAY | PROVIDERS: PCP Nurse Practitioner Family; Visit Provider Psychiatry & Neurology Neurology | DX: R25.2 Cramp and spasm (principal); M79.642 Pain in left hand | CPT/HCPCS: 95886; 95910 ==

== ENCOUNTER 2025-03-22 08:18 | Day surgery (SDC) | payer OTHER, SELFPAY ==
--- OUTSIDE RECORDS SUMMARY | 2025-02-21 14:15 | XMS_ITS | Clinical Summary ---
Author Organization [facility] Address [address] [place] [address] Care Team Providers Care Nuclear Medicine Technologist Name Role Phone EvonnegatotatikarishmaEduard NP Primary Care Provider [phone] Source Comments PLEASE NOTE, if this patient [...] (ZYPREXA) 10 mg tabletIndications:C hronic schizoaffective disorder (CMS & HHS-HCC) Take 1 Tab by mouth nightly at [...] Depression 05/02/2015 Overview (05/02/2015): F/U PSYCH @ [facility]. Migraine headache 12/08/2013 Overview (10/17/2014): Seen by Dr. 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 GI F/U AT [facility]. Repeat EGD 11/29/14 still with severe erosive esophagitis on high PPI use. Repeat EGD 06/16/16 = focal esophagitis limited to area GE junctio, superficial gastritis - Bxs: mod chronic gastritis, H.pylori neg, esophagus mild reflux esophagitis Iron deficiency anemia 03/31/2012 Chronic schizoaffective disorder ([facility]) 06/18/2010 Overview (06/08/2013): DX: 2008. ON PSYCH F/U. 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 on file Not on file Last Filed Vital Signs Vital Sign Reading Time Taken Comments Blood Pressure 110/79 08/02/2017 9:11 AM EST Pulse 80 08/02/2017 9:11 AM EST Temperature 36.5 C (97.7 F) 08/02/2017 9:11 AM EST Respiratory Rate 16 08/02/2017 9:11 AM EST Oxygen Saturation 97% 01/10/2016 10: 56 AM EDT Inhaled Oxygen Concentration - - Weight 97.8 kg (215 lb 11.2 oz) 08/02/2017 9:11 AM EST Height 180.3 cm (5' 11 ) 08/02/2017 9:11 AM EST Body Mass Index 30.08 08/02/2017 9:11 AM EST Plan of Treatment Not on file Insurance [facility] ALLIANCE YANIV MICHAEL [id number] Care Teams Nuclear Medicine Technologist Relationship Specialty Start Date End Date Eduard Nunez NP [address] [place] [address] PCP - General BLOOD DONOR RECRUITER Gerontology 07/01/19
[2025-03-20 14:59] VITALS: BMI 32.8
[2025-03-20 15:20] VITALS: BMI 32.8
--- NOTE | 2025-03-21 09:45 | P.CONAN_ITS ---
HPI - Anesthesia Eval Consult details Narrative: 44yo M for Upper Endoscopy and Colonoscopy Hx tracheostomy in 2022 due to a retropharyngeal abscess with extension into the superior mediastinum positive for strep PMFSH Active Problems Active Problems: All Active Problems Obesity (BMI 30-39.9) (Acute) Wheezing (Acute) Fatty liver (Acute) Family history of seizure disorder (Acute) Elevated LFTs (Acute) Muscle cramps at night (Acute) B12 deficiency (Acute) Snoring (Acute) Sleep difficulties (Acute) Excessive daytime sleepiness (Acute) Tremor (Acute) Movement disorder (Acute) CKD (chronic kidney disease) stage 3, GFR 30-59 ml/min (Acute) IFG (impaired fasting glucose) (Acute) Family history of colon cancer (Acute) Onychomycosis (Acute) Allergic rhinitis (Acute) Vitamin D deficiency (Acute) GERD without esophagitis (Acute) Gout (Acute) NIRU (generalized anxiety disorder) (Acute) MDD (major depressive disorder), recurrent episode (Acute) Anemia (Acute) Prostate cancer screening (Acute) Schizoaffective disorder (Acute) Laboratory tests ordered as part of a complete physical exam (CPE) (Acute) Tension headache, chronic (Acute) Annual physical exam (Acute ~05/2024) Dysphagia (Acute) Past Medical History Medical History Schizoaffective disorder NIRU (generalized anxiety disorder) MDD (major depressive disorder) Recent bereavement Dysphagia Benign essential tremor Left knee pain History of retropharyngeal abscess Tremor of left hand Right anterior knee pain Family History Family History Father Colon cancer Alcoholism Mother Arthritis Daughter GERD (gastroesophageal reflux disease) Family/Other FH: mental illness Schizo affective schizophrenia Brother In good health Surgical History Surgical History History of esophagogastroduodenoscopy (EGD) S/P emergency tracheotomy for assistance in breathing (2022) History of surgery Labral tear of right hip joint Social History Social History Household Members: Family and Other Housing Other:: [facility] Are you a primary critical care physician to a significant other at home: No Do you presently have visiting nurse or other home services: No Alcohol intake: never Patient Tobacco Use Status: Never used Tobacco e-Cigarette/Vaping Use: Never Used Second Hand Smoke Exposure: No Use of substances other than those prescribed or required for medical reasons: No Have you been hit, kicked, punched, or otherwise hurt by someone within the past year? 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 Current occupational exposures/hazards: No Sexual orientation: Straight/Heterosexual Gender identity: Male Cognitive needs: No Hearing needs: No Vision needs: Yes Meds Allergies Allergy/AdvReac Type Severity Reaction Status Date / Time mushroom (MUSHROOM) Allergy Intermediate SHORTNESS Verified 03/20/25 15:18 OF BREATH Seasonal Allergies Allergy Intermediate Runny Verified 03/20/25 15:18 Nose, watery eyes Home Medications ?Medication ?Instructions ?Recorded ?Confirmed ?Last Taken ?Type sodium chloride 0.65 % nasal spray 2 spray intranasal Q3H 08/13/20 03/22/25 Unknown History aerosol bupropion HCl 75 mg tablet 75 mg PO DAILY 10/22/23 Unknown History aripiprazole 300 mg suspension, 300 mg IM Q28D 4 03/22/25 Unknown History extended rel. intramuscular syringe (Cesar Kwok) benztropine 0.5 mg tablet 0.5 mg PO BID 06/12/2403/22 Unknown History magnesium oxide 400 mg (241.3 mg 400 mg PO DAILY muscl e spasm 12/25/24 03/22/25 Unknown History magnesium) tablet mecobalamin (vitamin B12) 1,000 1,000 mcg sublingual D AILY 12/25/24 03/22/25 Unknown History mcg disintegrating tablet,sublingual Exam Height,Weight and Vital Signs: Height 5 ft 11 in Weight 106.594 kg Pertinent Lab Results Pertinent Lab Results: Laboratory Tests 01/22/25 10:13 WBC 5.2 Hgb 15.1 Hct 41.9 L Plt Count 188 Sodium 142 Potassium 4.1 Chloride 106 Carbon Dioxide 28 BUN 15 Creatinine 1.32 Assessment and Plan Assessment Anesthesia Assessment: Chart Reviewed
[2025-03-22 08:40] VITALS: BP 123/79; PULSE 60; RESP 16; TEMP 36.2; O2SAT 96
[2025-03-22] MEDS: Lactated Ringers 1,000 ML 100 ML IVCONT (08:45)
--- NOTE | 2025-03-22 08:51 | P.CONAN_ITS ---
[facility] Active Problems Active Problems: All Active Problems (Updated 03/20/25 @ 14:57 by Radha Perez RN) Obesity (BMI 30-39.9) (Acute) Wheezing (Acute) Fatty liver (Acute) Family history of seizure disorder (Acute) Elevated LFTs (Acute) Muscle cramps at night (Acute) B12 deficiency (Acute) Snoring (Acute) Sleep difficulties (Acute) Excessive daytime sleepiness (Acute) Tremor (Acute) Movement disorder (Acute) CKD (chronic kidney disease) stage 3, GFR 30-59 ml/min (Acute) IFG (impaired fasting glucose) (Acute) Family history of colon cancer (Acute) Onychomycosis (Acute) Allergic rhinitis (Acute) Vitamin D deficiency (Acute) GERD without esophagitis (Acute) Gout (Acute) NIRU (generalized anxiety disorder) (Acute) MDD (major depressive disorder), recurrent episode (Acute) Anemia (Acute) Prostate cancer screening (Acute) Schizoaffective disorder (Acute) Laboratory tests ordered as part of a complete physical exam (CPE) (Acute) Tension headache, chronic (Acute) Annual physical exam (Acute ~05/2024) Dysphagia (Acute) Past Medical History Medical History Schizoaffective disorder NIRU (generalized anxiety disorder) MDD (major depressive disorder) Recent bereavement Dysphagia Benign essential tremor Left knee pain History of retropharyngeal abscess Tremor of left hand Right anterior knee pain Functional capacity: independent ambulation Family History Family History Father Colon cancer Alcoholism Mother Arthritis Daughter GERD (gastroesophageal reflux disease) Family/Other FH: mental illness Schizo affective schizophrenia Brother In good health Family history of problems with anesthesia: No Surgical History Surgical History History of esophagogastroduodenoscopy (EGD) S/P emergency tracheotomy for assistance in breathing (2022) History of surgery Labral tear of right hip joint History of Problems with Anesthesia: No Social History Social History Household Members: Family and Other Housing Other:: [facility] Are you a primary care management assistant to a significant other at home: No Do you presently have visiting nurse or other home services: No Alcohol intake: never Patient Tobacco Use Status: Never used Tobacco e-Cigarette/Vaping Use: Never Used Second Hand Smoke Exposure: No Use of substances other than those prescribed or required for medical reasons: No Have you been hit, kicked, punched, or otherwise hurt by someone within the past year? 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 Current occupational exposures/hazards: No Sexual orientation: Straight/Heterosexual Gender identity: Male Cognitive needs: No Hearing needs: No Vision needs: Yes Meds Allergies Allergy/AdvReac Type Severity Reaction Status Date / Time mushroom (MUSHROOM) Allergy Intermediate SHORTNESS Verified 03/20/25 15:18 OF BREATH Seasonal Allergies Allergy Intermediate Runny Verified 03/20/25 15:18 Nose, watery eyes Active Medications: Current Medications Lactated Ringer's (Lr) 1,000 mls @ 100 mls/hr IVCONT .Q10H FLASH Last Admin: 03/22/25 08:45 Dose: 100 mls/hr Home Medications ?Medication ?Instructions ?Recorded ?Confirmed ?Last Taken ?Type sodium chloride 0.65 % nasal spray 2 spray intranasal Q3H 08/13/20 03/22/25 Unknown History aerosol bupropion HCl 75 mg tablet 75 mg PO DAILY 10/22/23 Unknown History aripiprazole 300 mg suspension, 300 mg IM Q28D 4 03/22/25 Unknown History extended rel. intramuscular syringe (Cesar Kwok) benztropine 0.5 mg tablet 0.5 mg PO BID 06/12/2403/22 Unknown History magnesium oxide 400 mg (241.3 mg 400 mg PO DAILY muscl e spasm 12/25/24 03/22/25 Unknown History magnesium) tablet mecobalamin (vitamin B12) 1,000 1,000 mcg sublingual D AILY 12/25/24 03/22/25 Unknown History mcg disintegrating tablet,sublingual Exam Height,Weight and Vital Signs: Height 5 ft 11 in Weight 106.594 kg Last Vital Signs Temp 97.1 F 07/31/25 08:40 Pulse 60 03/22/25 08:40 Resp 16 03/22/25 08:40 BP 123/79 03/22/25 08:40 Pulse Ox 96 03/22/25 08:40 O2 Del Method Room Air 03/22/25 08:40 Airway Mallampati Class: III TM Dist: >3cm Heart: RRR Lungs: CTA Assessment and Plan Assessment Anesthesia Assessment: Anesthesia Plan Discussed Final Anesthetic Review Family History of Problems with Anesthesia: No History of Problems with Anesthesia: No NPO: Yes ASA Class: III Final Preanesthetic Review: Meds/Allgs Chart Reviewed, Consent Obtained/Reviewed and Anes Risks/Benef Reviewed Patient Risk: Intermediate Procedure Risk: Low Anesthetic Plan Anesthetic Plan: MAC: Disposition: Standard PACU
--- NOTE | 2025-03-22 09:09 | MHC.SHP ---
Pre-Procedural Eval Section A - 24 Hr Update-Section A only Date of Service: 03/22/25 Section B - Complete if H&P > 30 days Chief Complaint: dysphagia, fam hx of crc Details of Present Illness: Dysphagia Benign essential tremor Left knee pain History of retropharyngeal abscess Tremor of left hand Right anterior knee pain Surgical History S/P emergency tracheotomy for assistance in breathing History of surgery Labral tear of right hip joint Allergies: Allergies Allergy/AdvReac Type Severity Reaction Status Date / Time mushroom (MUSHROOM) Allergy Intermediate SHORTNESS Verified 03/20/25 15:18 OF BREATH Seasonal Allergies Allergy Intermediate Runny Verified 03/20/25 15:18 Nose, watery eyes Review of Systems Review of Systems Comment: 10 point ROS negative Exam Exam Comment: Gen appear: No acute distress HEENT: no icterus Chest: No overt resp distress Abd: soft, nontender, nondistended Psych: Stable affect, answering questions appropriately Neuro: A/Ox3 noted to move all extremities spontaneously Ext: no peripheral edema Plan Diagnosis/Plan: Unchanged I have reviewed the history and physical and performed a pertinent physical examination on my patient. No changes have occurred unless specified. Time Spent With Patient Time: Total time managing care of this patient today ____ minutes.
--- NOTE | 2025-03-22 10:12 | P.CONAN_ITS ---
[facility] Active Problems Active Problems: All Active Problems (Updated 03/20/25 @ 14:57 by Radha Perez RN) Obesity (BMI 30-39.9) (Acute) Wheezing (Acute) Fatty liver (Acute) Family history of seizure disorder (Acute) Elevated LFTs (Acute) Muscle cramps at night (Acute) B12 deficiency (Acute) Snoring (Acute) Sleep difficulties (Acute) Excessive daytime sleepiness (Acute) Tremor (Acute) Movement disorder (Acute) CKD (chronic kidney disease) stage 3, GFR 30-59 ml/min (Acute) IFG (impaired fasting glucose) (Acute) Family history of colon cancer (Acute) Onychomycosis (Acute) Allergic rhinitis (Acute) Vitamin D deficiency (Acute) GERD without esophagitis (Acute) Gout (Acute) NIRU (generalized anxiety disorder) (Acute) MDD (major depressive disorder), recurrent episode (Acute) Anemia (Acute) Prostate cancer screening (Acute) Schizoaffective disorder (Acute) Laboratory tests ordered as part of a complete physical exam (CPE) (Acute) Tension headache, chronic (Acute) Annual physical exam (Acute ~05/2024) Dysphagia (Acute) Past Medical History Medical History Schizoaffective disorder NIRU (generalized anxiety disorder) MDD (major depressive disorder) Recent bereavement Dysphagia Benign essential tremor Left knee pain History of retropharyngeal abscess Tremor of left hand Right anterior knee pain Functional capacity: independent ambulation Family History Family History Father Colon cancer Alcoholism Mother Arthritis Daughter GERD (gastroesophageal reflux disease) Family/Other FH: mental illness Schizo affective schizophrenia Brother In good health Family history of problems with anesthesia: No Surgical History Surgical History History of esophagogastroduodenoscopy (EGD) S/P emergency tracheotomy for assistance in breathing (2022) History of surgery Labral tear of right hip joint History of Problems with Anesthesia: No Social History Social History Household Members: Family and Other Housing Other:: [facility] Are you a primary wound care physician to a significant other at home: No Do you presently have visiting nurse or other home services: No Alcohol intake: never Patient Tobacco Use Status: Never used Tobacco e-Cigarette/Vaping Use: Never Used Second Hand Smoke Exposure: No Use of substances other than those prescribed or required for medical reasons: No Have you been hit, kicked, punched, or otherwise hurt by someone within the past year? 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 Current occupational exposures/hazards: No Sexual orientation: Straight/Heterosexual Gender identity: Male Cognitive needs: No Hearing needs: No Vision needs: Yes Meds Allergies Allergy/AdvReac Type Severity Reaction Status Date / Time mushroom (MUSHROOM) Allergy Intermediate SHORTNESS Verified 03/20/25 15:18 OF BREATH Seasonal Allergies Allergy Intermediate Runny Verified 03/20/25 15:18 Nose, watery eyes Active Medications: Current Medications Lactated Ringer's (Lr) 1,000 mls @ 100 mls/hr IVCONT .Q10H FLASH Last Admin: 03/22/25 08:45 Dose: 100 mls/hr Naloxone HCl (Naloxone Hcl 0.4 Mg/Ml Vial) 0.04 mg IVPUSH Q5M PRN PRN Reason: Excessive sedation or RR < 8 Home Medications ?Medication ?Instructions ?Recorded ?Confirmed ?Last Taken ?Type sodium chloride 0.65 % nasal spray 2 spray intranasal Q3H 08/13/20 03/22/25 Unknown History aerosol bupropion HCl 75 mg tablet 75 mg PO DAILY 10/22/23 Unknown History aripiprazole 300 mg suspension, 300 mg IM Q28D 4 03/22/25 Unknown History extended rel. intramuscular syringe (Cesar Kwok) benztropine 0.5 mg tablet 0.5 mg PO BID 06/12/2403/22 Unknown History magnesium oxide 400 mg (241.3 mg 400 mg PO DAILY muscl e spasm 12/25/24 03/22/25 Unknown History magnesium) tablet mecobalamin (vitamin B12) 1,000 1,000 mcg sublingual D AILY 12/25/24 03/22/25 Unknown History mcg disintegrating tablet,sublingual Exam Height,Weight and Vital Signs: Height 5 ft 11 in Weight 106.594 kg Last Vital Signs Temp 97.1 F 03/22/25 08:40 Pulse 60 03/22/25 08:40 Resp 16 03/22/25 08:40 BP 123/79 03/22/25 08:40 Pulse Ox 96 03/22/25 08:40 O2 Del Method Room Air 03/22/25 08:40 Airway Mallampati Class: II TM Dist: >3cm Neck ROM: Full Heart: RRR Lungs: CTA Assessment and Plan Assessment Anesthesia Assessment: Anesthesia Plan Discussed and Chart Reviewed Final Anesthetic Review Family History of Problems with Anesthesia: No History of Problems with Anesthesia: No NPO: Yes ASA Class: III Final Preanesthetic Review: Meds/Allgs Chart Reviewed, Consent Obtained/Reviewed and Anes Risks/Benef Reviewed Patient Risk: Intermediate Anesthetic Plan Anesthetic Plan: MAC: Disposition: Standard PACU
[2025-03-22 10:43] VITALS: BP 92/65; PULSE 69; RESP 16; TEMP 36.1; O2SAT 95
[2025-03-22 10:58] VITALS: BP 111/82; PULSE 55; RESP 14; O2SAT 96
[2025-03-22 11:13] VITALS: BP 125/91; PULSE 56; RESP 14; O2SAT 96
--- NOTE | 2025-03-22 11:19 | HO.POSTANES ---
Post Anesthesia Evaluation Post Anesthesia Evaluation Date of Service: 03/22/25 Vital Signs: Vital Signs Temp Pulse Resp BP Pulse Ox O2 Del Method 03/22/25 10:58 55 14 111/82 96 Room Air 03/22/25 10:43 97 F 69 16 92/65 95 Room Air 03/22/25 08:40 97.1 F 60 16 123/79 96 Room Air Anesthesia: Monitored Mental Status: Awake Pain Control: Satisfactory Nausea/Vomiting: None and Mild Hydration: Adequate Anesthesia-Related Issues: No Anes. Related Issues
--- NOTE | 2025-03-22 11:27 | P.OPN-COLO_ITS ---
Colonoscopy Operative Note Operative Note Date of Service: 03/22/25 Narrative: Procedure: Upper endoscopy and colonoscopy Indication: Dysphagia, fam hx of CRC Endoscopist: Latoya Weber MD Anesthesia Provider: Dr Shannen Hurley Anesthesia type: MAC Instrument: [id number]-[id number] and [id number]-[id number] EGD Procedure:?? The procedure, indications, preparation and potential complications were reviewed with the patient, who indicated understanding and gave written informed consent to proceed. The endoscope was introduced through the mouth, and advanced to the 2nd part of the duodenum. The mucosa was carefully examined on slow withdrawal of the endoscope. The patient tolerated the procedure well. There were no immediate complications.? EGD Findings:? * Esophagus:?Linear ulcerations measuring > 5 mm without crossing the tops of the mucosal folds with underlying nodular mucosa. The Z-line was at 35 cm displaced by hiatal hernia with the diaphragmatic pinch at 38 cm. Cold forceps biopsies were taken from lower esophagus for histology. * Stomach:? Erythema and erosions in the antrum at pre-pyloric area. Retroflexion was performed in the cardia that showed Hill grade II hiatal hernia. Random cold forceps biopsies were taken from the stomach. * Duodenum:?Mild erythema and edema noted in duodenal bulb. Cold forceps biopsies were taken from the duodenal bulb and 2nd portion of the duodenum to rule out celiac sprue. Colonoscopy Procedure:? The patient was then turned for the colonoscopy. A digital rectal exam was performed which was normal.? A distal attachment cap was affixed to the tip of the scope and the colonoscope was then inserted through the anus and advanced through the colon and advanced to the cecum at 80 cm and terminal ileum.? Appendiceal orifice and ileocecal valve were identified. Mucosa was carefully examined under high definition white light as the instrument was slowly withdrawn in a retrograde panoramic fashion. Retroflexion was performed in ascending colon and rectum. The procedure was not difficult. The quality of the prep was BBPS: 2+3+3 = adequate Withdrawal time 8 minutes Limitations: No limitations Findings: Mucosa: Normal colon and terminal ileum mucosa. Protruding lesions: * Small internal hemorrhoids without stigmata of recent bleeding. Impression: 1. Esophagitis with abnormal esophageal mucosa (biopsy) 2. Gastritis (biopsy) 3. Hiatal hernia 4. Duodenitis (biopsy) 5. Normal colon and terminal ileum mucosa (biopsy) 6. Internal hemorrhoids Recommendations:?? * Dilation was not attempted today due to abnormal esophageal mucosa. Follow path results. * Avoid NSAIDs * H Pylori treatment if biopsies + * Repeat colonoscopy for CRC screening in 5 years.
[2025-03-22 11:28] VITALS: BP 124/53; PULSE 76; RESP 14; TEMP 36.8; O2SAT 98
--- NOTE | 2025-03-22 12:30 | HO.POSTANES ---
Post Anesthesia Evaluation Post Anesthesia Evaluation Date of Service: 03/22/25 Vital Signs: Vital Signs Temp Pulse Resp BP Pulse Ox O2 Del Method 03/22/25 11:28 98.3 F 76 14 124/53 L 98 Room Air 03/22/25 11:13 56 14 125/91 H 96 Room Air 03/22/25 10:58 55 14 111/82 96 Room Air 03/22/25 10:43 97 F 69 16 92/65 95 Room Air 03/22/25 08:40 97.1 F 60 16 123/79 96 Room Air Anesthesia: Monitored Mental Status: Awake Pain Control: Satisfactory Nausea/Vomiting: None Hydration: Adequate Anesthesia-Related Issues: No Anes. Related Issues
== END 2025-03-22 12:06 | disposition home or self-care (01) ==
PROVIDERS: PCP Nurse Practitioner Family; Visit Provider Internal Medicine
PROC: (CPT 43239; principal; 2025-03-22 10:30)
DX: Z12.11 Encounter for screening for malignant neoplasm of colon (principal); Z80.0 Family history of malignant neoplasm of digestive organs; K64.8 Other hemorrhoids; R13.10 Dysphagia, unspecified; K29.50 Unspecified chronic gastritis without bleeding; K29.80 Duodenitis without bleeding; K20.80 Other esophagitis without bleeding; K44.9 Diaphragmatic hernia without obstruction or gangrene; G25.0 Essential tremor; D64.9 Anemia, unspecified; Z98.890 Other specified postprocedural states
CPT/HCPCS: 43239; G0105; 88305; 88313; 88342; J2003; J2704

== ENCOUNTER → 2025-03-22 08:18 | Outpatient (BNV) | payer OTHER, SELFPAY | PROVIDERS: PCP Nurse Practitioner Family; Visit Provider Internal Medicine | DX: K20.90 Esophagitis, unspecified without bleeding (principal); K29.90 Gastroduodenitis, unspecified, without bleeding; K44.9 Diaphragmatic hernia without obstruction or gangrene; Z12.11 Encounter for screening for malignant neoplasm of colon; K64.8 Other hemorrhoids; Z80.0 Family history of malignant neoplasm of digestive organs | CPT/HCPCS: 43239; G0105 ==

== ENCOUNTER 2025-04-06 08:45 | Outpatient (REF) | payer OTHER, SELFPAY ==
--- NOTE | ~2025-04-06 | FL_ITS ---
EXAMINATION: XR BARIUM SWALLOW CLINICAL INFORMATION: Dysphagia COMPARISON: Ultrasound abdomen 12/28/2024 TECHNIQUE: Routine barium swallow upright with thick barium and barium coated saltine crackers and thin barium in prone lying position was performed. FINDINGS: Following oral administration of thick barium there is normal propagation bolus from the oral cavity through the pharynx, esophagus into stomach. No obstruction, narrowing or stricture seen. The course, caliber and peristalsis of the stomach duodenal bulb and sweep is normal. There is mild retention of barium in valleculae and piriform sinuses which clears with subsequent swallowing. There is single episode of trace laryngeal penetration and subsequent aspiration with thick barium. Aspiration was not seen on subsequent swallowing. On placing patient prone lying there is normal antegrade flow of thin barium from oral cavity, pharynx into esophagus without obstruction, narrowing or stricture. There is good distention of esophagus without intraluminal filling defect or extrinsic compression. Small sliding hiatal hernia seen with mild gastroesophageal reflux in lying position FLUOROSCOPY TIME: 2 minutes and 50 seconds. DOSE AREA PRODUCT: 2456 uGy-m2 (microgray-meter squared) FL/FL barium swallow IMPRESSION: Small sliding hiatal hernia with mild gastroesophageal reflux in lying position. Single episode of laryngeal penetration and aspiration with thick barium not seen on subsequent swallowing. Electronically signed by: Rigoberto Da Silva MD 04/06/2025 10:35 AM EDT
--- OUTSIDE RECORDS SUMMARY | 2025-04-06 09:03 | XMS_ITS | Patient Health Record ---
Author Organization [facility] riccardo [place] Address [address] [facility] [place] [address] Care Team Providers Care Cutter Aluminum Sheet Name Role Phone Aylin [place] Primary Care Provider UnavailGuera Hernandez Unavailable [phone] Allergies Allergen (clinical drug ingredient) Drug/Non Drug Allergy documented on EMR Reaction Allergy Type Onset Date Status mushrooms (uncoded) Unknown Allergy Active Reason For Referral No Information Medications Medication SIG (Take, Route, Frequency, Duration) Notes Start Date End Date Status Abilify Active Meloxicam Active Immunizations Vaccine Route Administration Date Status Comme nts Influenza Unknown 04/23/2024 Administered Social History Tobacco Use: Social History Observation Description Date Details (start date - stop date) Never Smoker NA - NA Tobacco use other than smoking: Question Answer Notes Are you an other tobacco user? No Tobacco Control (Standard) Question Answer Notes Tobacco use: Nonsmoker AUDIT-C (Standard) Question Answer Notes Did you have a drink containing alcohol in the p ast year? 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) Active confirmed Vital Signs Blood pressure diastolic 80 mm Hg 03/20/2025 Height 5'11 in 03/20/2025 Blood pressure systolic 123 mm Hg 03/20/2025 Weight 225 lbs 03/20/2025 BMI 31.38 kg/m2 03/20/2025 Encounters Encounter Location Date Provider Diagnosis [facility] [place] [address] [place] [address] 03/20/2025 Guera Rosa Achilles tendinitis of right lower extremity M76.61 ; Pain of right heel M79.671 ; Exostosis of right posterior calcaneus M77.31 ; Acquired Susanne's deformity of right heel M92.61 ; Short Achilles tendon (acquired), 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 ; Bursitis of left foot M77.52 ; Hallux valgus (acquired), left foot M20.12 and Tinea unguium B35.1 Assessments Encounter Date Diagnosis (ICD Code) Assessment Notes Treatment Notes Treatment Clinical Notes Section Notes 03/20/2025 Pain of right heel (ICD-10 - M79.671) 03/20/2025 Achilles tendinitis of right lower extremity (ICD-10 - M76.61) Patient Educated with: HEEL CORD STRETCHES.pdf (HEEL CORD STRETCHES.pdf) Patient Educated with: RICE THERAPY.pdf (RICE THERAPY.pdf) 03/20/2025 Exostosis of right posterior calcaneus (ICD-10 - M77.31) 03/20/2025 Acquired Susanne's deformity of right heel (ICD-10 - M92.61) 03/20/2025 Short Achilles tendon (acquired), right ankle (ICD-10 - M67.01) 03/20/2025 Bursitis of left foot (ICD-10 - M77.52) 03/20/2025 Hallux valgus (acquired), left foot (ICD-10 - M20.12) 03/20/2025 Tinea unguium (ICD-10 - B35.1) Plan Of Treatment Pending Test Test Name Order Date X ray : Foot, left 3V 03/20/2025 X ray : Foot, right 3V 03/20/2025 Next Appt Details Provider Name:Guera sexton, 05/29/2025 09:30:00 AM, [address] [place] [address], [id number], Insurance Providers Payer Name Payer Address Payer Phone Subscriber Number Group Number Insured Name Patient Relationship to Insured Coverage Start Date Coverage End Date [facility] [employer] Claims [address] [place] [phone] [id number] Terry Quintanilla Self - patient is the insured Medical (General) History Medical History History ICD Code covid-19 Headaches/Migraines Chicken pox Surgical History Surgery Date(Month/Year) knee surgery
--- OUTSIDE RECORDS SUMMARY | 2025-04-06 09:03 | XMS_ITS | Clinical Summary ---
Author Organization [facility] Address [address] [place] [address] Care Team Providers Care Certified Nurse Name Role Phone Evonnegatotatikarishma Eduard GOLDMAN Primary Care Provider [phone] Source Comments PLEASE NOTE, if this patient [...] Depression 05/02/2015 Overview (05/02/2015): F/U PSYCH @ [facility]. Migraine headache 12/08/2013 Overview (10/17/2014): Seen by Dr. 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 GI F/U AT [facility]. Repeat EGD 11/29/14 still with severe erosive esophagitis on high PPI use. Repeat EGD 06/16/16 = focal esophagitis limited to area GE junctio, superficial gastritis - Bxs: mod chronic gastritis, H.pylori neg, esophagus mild reflux esophagitis Iron deficiency anemia 03/31/2012 Chronic schizoaffective disorder ([facility]) 06/18/2010 Overview (06/08/2013): DX: 2008. ON PSYCH F/U. Insomnia 06/18/2010 Overview (06/08/2013): ON PSYCH F/U. Right hip pain Resolved Problems Problem Noted Date Diagnosed Date Resolved Date Right knee pain 06/08/2013 12/21/2016 Vitamin B12 deficiency anemia 03/31/2012 01/04/2014 Immunizations Immunization Administration Dates Next Due Flu, Preservative Free 08/02/2017,05/19/2016 Hep B, Adult/Adol ([id number]/RECOMBIVAX-ADULT) 04/28/2011 INFLUENZA, SEASONAL, INJECTABLE 07/27/2014,06/08,09/28/2012 Family History Medical History Relation Name Comments Cancer Father COLON Diabetes Father Hypertension Father Diabetes Mother Hypertension Mother Cancer Paternal Grandmother BREAST CA Heart Problems Paternal Grandmother HI Relation Name Status Comments Father Alive Mother [...] 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
== END 2025-04-06 08:46 | disposition home or self-care (01) ==
LOC: HO.XRAY 08:45
PROVIDERS: PCP Nurse Practitioner Family; Visit Provider Internal Medicine
DX: R13.10 Dysphagia, unspecified (principal)
CPT/HCPCS: 74220

== ENCOUNTER → 2025-04-06 08:50 | Outpatient (BNV) | payer OTHER, SELFPAY | PROVIDERS: PCP Nurse Practitioner Family; Visit Provider Radiology Diagnostic Radiology | DX: K44.9 Diaphragmatic hernia without obstruction or gangrene (principal) | CPT/HCPCS: 74221 ==

== ENCOUNTER 2025-05-14 08:38 | Outpatient (AMB) | payer OTHER, SELFPAY ==
--- NOTE | 2025-05-14 08:41 | MHC.OFFVIS ---
Vital Signs 05/14/25 08:42 Height 5 ft 11 in Weight 227 lb 2 oz BMI 31.7 BP 112/72 Blood Pressure Location Lt brachial Position Sitting Pulse 78 Pulse Source Pulse Oximeter Pulse Oximetry (%) 98 Oxygen Delivery Method Room Air Intake Visit Reasons: 4mo follow up Intake Note: Patient presents follow up Tremor. EMG/EEG in chart. Patient took melatotin at 10-10:30pm and woke up at 4am. took while to fall back asleep. Accompanied by: Self / Same As Patient Allergies mushroom (MUSHROOM) Allergy (Intermediate, Verified 05/14/25 08:47) SHORTNESS OF BREATH Seasonal Allergies Allergy (Intermediate, Verified 05/14/25 08:47) Runny Nose, watery eyes valbenazine (From Ingrezza) Allergy (Unknown, Verified 05/14/25 08:47) Unknown HPI Comments Details: 44- yr-old r. handed male presents for a f/u of LUE tremor which radiates to the head. PMH significant for:schizoaffective disorder, depression, generalized anxiety disorder, GERD / hiatal hernia s/p Rey funduplication (07/2015, Dr. Pena), seasonal allergies, vitamin D deficiency, adenovirus (+) PCR and CT scan c.w. a large left-side retro & parapharyngeal abscess with extension into posterior mediastinum / ELDA / sCreat peaked = 1.6 s/p emergency tracheostomy & I&D of abscess (01/02/2023, Dr. Ramirez) s/p tracheostomy removal (December 2022 at [facility]). 05/2024 HST reviewed with pt. AHI is <1 and oxygen nadirs to 89%, will send him for a PSG. He has moderate snoring 33%. 02/2025 EEG reviewed with pt and is unremarkable. 02/2025 EMG and NCS reviewed with pt. and is a normal study. He goes to bed at 11pm and wakes up at 7am for work, however notices recently has been up at 4am and can not fall asleep despite taking melatonin 3mg. He has moderate snoring per PSG and is chronically fatigued. His l. hand tremor has been about the same, and he notices the tremor is worse at rest now and happens intermittently, does not increase with action, or pouring water, etc. Pt is concerned that his Abilify use may have caused the tremor. He decreased use of caffeinated drinks. He spoke with his psychiatrist and decided to continue Abilify sub q. once a month as it is working for his mood and anxiety. (schizo-affective) symptoms. He has a family history of tremors and is concerned about having parkinson's disease as he ages. He states when he tried Ingrezza was not effective so he stopped taking it per Psychiatrist's discretion. He plans to discuss other options with his psychiatrist for the tremor. Pt is right handed. ADL status: Ind. Currently lives with room mate in [facility] IADL status: Cannot manage his own finances- d/t compulsivity, difficulty prioritizing finances. Fine-motor skills: No issues Micrographia: Denies changes in writing, he is r. handed and tremor is in l. hand. Vision changes: Denies. He rarely blinks per his friend. May stare off and not blink for 10 minutes. Denies h/o seizure. Hypophonia: Denies Hyposmia: Denies insomnia HST was normal. Dysphagia: Denies Drooling: Denies Orthostatic lightheadedness: Sometimes- briefly GI: Denies constipation : Denies Musculoskeletal: calve pain r. leg. Slowness: Denies Freezing episodes: Denies Tremor: l. hand and at rest Involuntary movements: Denies Dyskinesia: Denies Stiffness: Denies Paresthesias: Denies Gait changes: limping due to bone spur in l. heel. Sleep difficulty: Poor sleep. takes melatonin, but tries not to take it as he is worried that he will overdose. Parasomnias: has been told he sleep walks, wakes up with vivid dreams. Memory impairment: Poor student in school had an IEP struggled to graduate from due to mental health d/o. Hallucinations: AH and VH, with conversations, prior to starting Abilify. Diminished upon starting Abilify. Physical Activities: Walks daily about 1/2 mile to 1 mile and routinely plays candlepin bowling. He is currently under care of psychiatry and psychology through [facility]. History of concussion/head injury? He had 2 mild concussions w/ scalp laceration x's 2- high school- hit his head on a ceiling; struck top of his head on a piece of metal when he stood up too fast. History of neuroleptic (metoclopramide/antipsychotics) use? Zyprexa when younger- x's a few months. Abilify x's 2 yrs- current. History of psychiatric hospitalizations? Denies History of occupational chemical exposures? Denies Family history of movement disorders? Mother and maternal grandfather. Parkinsons. Family history of mood disorder or suicide? Denies [facility] Medical History Schizoaffective disorder NIRU (generalized anxiety disorder) MDD (major depressive disorder) Recent bereavement Dysphagia Benign essential tremor Left knee pain History of retropharyngeal abscess Tremor of left hand Right anterior knee pain Surgical History H/O colonoscopy History of esophagogastroduodenoscopy (EGD) S/P emergency tracheotomy for assistance in breathing (2022) History of surgery Labral tear of right hip joint Family History Father Colon cancer Alcoholism Mother Arthritis Daughter GERD (gastroesophageal reflux disease) Family/Other FH: mental illness Schizo affective schizophrenia Brother In good health Social History Household Members: Family and Other Both parents involved: No Caregiver staying overnight: No Housing Other:: [facility] Are you a primary foster care social worker to a significant other at home: No Do you presently have visiting nurse or other home services: No 75 years or older and lives alone: No Alcohol intake: never Patient Tobacco Use Status: Never used Tobacco e-Cigarette/Vaping Use: Never Used Second Hand Smoke Exposure: No service: No Current occupational status: employed 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 Current occupational exposures/hazards: No Sexual orientation: Straight/Heterosexual Gender identity: Male Cognitive needs: No Hearing needs: No Vision needs: Yes Physical Exam Vital Signs: Last Vital Signs Pulse 78 05/14/25 08:42 BP 112/72 05/14/25 08:42 Pulse Ox 98 05/14/25 08:42 Oxygen Delivery Method Room Air 05/14/25 08:42 BMI result Body Mass Index 31.7 Const General: cooperative, no acute distress and tired appearing Nutritional Appearance: overweight Orientation/consciousness: patient oriented x3 HEENT Face and sinus: Yes face symmetric and Yes other (sebhorrheic dermatitis, and psoriasis all over his scalp eye brows and face) Eyes Pupils: Equal, round and reactive pupils present Neck Neck: Yes full ROM Resp Effort & Inspection: normal respiratory effort and able to speak in complete sentences Neuro Other: Decreased facial blink, mild L. hand tremor radiates to the head, no vocal tremor, no slurring of speech or hypophonia, no dyskinesias, no freezing of gait, good posture upright. General: patient oriented x3 and moves all extremities Cranial nerves: Yes Facial sensation intact/muscles of mastication intact, Yes Equal, round and reactive pupils present, Yes Normal accommodation reflex present, Yes Normal facial strength present, Yes Midline tongue present, Yes Ability to bilaterally rotate head present and Yes Ability to bilaterally elevate shoulders present Cognition (Neuro): normal cognition Gait exam (Neuro): Normal gait present Motor exam (neuro): 5/5 motor strength present throughout and Normal motor muscle tone present throughout Psych Appearance: disheveled Speech and movement: Slowed movement present (Neuro) Affect: Indifferent affect present Thought content: Compulsions present (thought content) Insight: Fair insight present (Psych) Judgement: Fair judgement present (Psych) Results Reviewed Results Reviewed: This is a 16 channel EEG with an EKG lead. Patient is reported awake during the tracing. Background EEG rhythm is about 10 hertz 5-70 microvolt posteriorly lower amplitude fast anteriorly. Photic stimulation does not produce any significant abnormality. Hyperventilation is not performed. Cardiac lead does not reveal any significant abnormality. No sharp wave spikes or paroxysmal tendency noted. Impression: Unremarkable EEG. Assessment & Plan Assessment & Plan (1) Excessive daytime sleepiness: Comment: PSG / r/o rai and PLMD Code(s): G47.19 - Other hypersomnia Category: Medical (2) Tremor: Comment: Essential tremor benign. Code(s): R25.1 - Tremor, unspecified Category: Medical (3) Movement disorder: Comment: LUE rest/postural tremor, BUE L > R tone, decreased RLE foot taps, asymmetric decreased arm swing, decreased blink. 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 unknown CV insult. Pt has family h/o c/w ET, however pt's tremor s/s are not c/w a typical ET presentation. Code(s): G25.9 - Extrapyramidal and movement disorder, unspecified Category: Medical (4) Muscle cramps at night: Code(s): R25.2 - Cramp and spasm Category: Medical Plan HST is inconclusive,he has moderate snoring, will evaluate with a PSG to r/o RAI. Tremor LUE travels to the head, pt is on abilify per psych and tremor is most likely a s/e of this medication will monitor. Labs reviewed w/ pt. B12, B6 200mg, and mg 400mg at qpm will help with daily muscle spasms /cramps RLS/PLMS? EEG is unremarkable, reviewed with pt today. NCS/ EMG l. hand tremor, he had the discussion with his psychiatrist re: changing medications safely from Abilify injections to other meds which work for his schizo-affective disorder, patient felt his Abilify helps to control his schizo-affective symptoms and would prefer continuation of this medication. Increase melatonin 3mg to 6mg po qpm three hours prior to bed to help with relaxation and induce restful sleep. F/U in 3 months. Orders: Orders RT PSG in-lab sleep study Today G47.19 - Other hypersomnia Patient Instructions: Sleep Hygiene provided: set a scheduled bedtime and wake time to help regulate the circadian rhythm and balance the release of pituitary hormones. Sleep in a dark room, temperatures below 68 degrees, and no devices n bed. Limit caffeinated products 6 hours prior to bed, and limit fluids 2-4 hours prior to bed. Gentle night yoga, diffusing essential oils, and playing soft music can be relaxing. Coding Level of Care Code Est Pt Level 4 (06992) Diagnoses Excessive daytime sleepiness G47.19 Tremor R25.1 Movement disorder G25.9 Muscle cramps at night R25.2
[2025-05-14 08:42] VITALS: BP 112/72; PULSE 78; O2SAT 98; BMI 31.7
--- OUTSIDE RECORDS SUMMARY | 2025-05-14 10:00 | XMS_ITS | Clinical Summary ---
Author Organization [facility] Address [address] [place] [address] Care Team Providers Care Liner Worker Name Role Phone EvonnegatotatikarishmaEduard NP Primary Care Provider [phone] Source Comments PLEASE NOTE, if this patient [...] Depression 05/02/2015 Overview (05/02/2015): F/U PSYCH @ [facility]. Migraine headache 12/08/2013 Overview (10/17/2014): Seen by Dr. 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 GI F/U AT [facility]. Repeat EGD 11/29/14 still with severe erosive esophagitis on high PPI use. Repeat EGD 06/16/16 = focal esophagitis limited to area GE junctio, superficial gastritis - Bxs: mod chronic gastritis, H.pylori neg, esophagus mild reflux esophagitis Iron deficiency anemia 03/31/2012 Chronic schizoaffective disorder ([facility]) 06/18/2010 Overview (06/08/2013): DX: 2008. ON PSYCH F/U. Insomnia 06/18/2010 Overview (06/08/2013): ON PSYCH F/U. Right hip pain Resolved Problems Problem Noted Date Diagnosed Date Resolved Date Right knee pain 06/08/2013 12/21/2016 Vitamin B12 deficiency anemia 03/31/2012 01/04/2014 Immunizations Immunization Administration Dates Next Due Flu, Preservative Free 08/02/2017,05/19/2016 Hep B, Adult/Adol ([id number]/RECOMBIVAX-ADULT) 04/28/2011 INFLUENZA, SEASONAL, INJECTABLE 07/27/2014,06/08,09/28/2012 Family History Medical History Relation Name Comments Cancer Father COLON Diabetes Father Hypertension Father Diabetes Mother Hypertension Mother Cancer Paternal Grandmother BREAST CA Heart Problems Paternal Grandmother SD Relation Name Status Comments Father Alive Mother [...] 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
== END 2025-05-14 09:25 | disposition home or self-care (01) ==
PROVIDERS: PCP Nurse Practitioner Family; Visit Provider Physician Assistant Medical
DX: G47.19 Other hypersomnia (principal); R25.1 Tremor, unspecified; G25.9 Extrapyramidal and movement disorder, unspecified; R25.2 Cramp and spasm
CPT/HCPCS: 99214

== ENCOUNTER → 2025-05-14 08:38 | Outpatient (BNVA) | payer OTHER, SELFPAY | PROVIDERS: PCP Nurse Practitioner Family; Visit Provider Physician Assistant Medical | DX: G47.19 Other hypersomnia (principal); G25.9 Extrapyramidal and movement disorder, unspecified; R25.1 Tremor, unspecified; R25.2 Cramp and spasm | CPT/HCPCS: 99212 ==

== ENCOUNTER → 2025-06-25 19:30 | Outpatient (REF) | payer OTHER, SELFPAY ==
--- OUTSIDE RECORDS SUMMARY | 2025-04-26 09:00 | XMS_ITS ---
Author Organization [facility] Address [address] [place] [address] Care Team Providers Care Transition Nurse Name Role Phone Aylin [place] Primary Care Provider Unavailab Guera Crane [phone] REASON FOR VISIT Seen Sooner Encounters Encounter Location Date Provider Diagnosis [address] [address] 04/26/2025 Guera Rosa Plan Of Treatment No Information Progress Notes * Terry AUGUSTINE ADOB:1980 (45 yo M)Acc No.[id number]:04/26/2025 Progress Notes Patient: Terry FRANKLIN Provider: Dania Rosa DPM :1980 A ge:44 Y S ex:Male Date:04/26/2025 Address:[address] [place], [place] [id number] Pcp:Aylin Kent Subjective: * Chief Complaints: * 1 . Seen Sooner. * Medical History: Objective: * Vitals: Assessment: Plan: * Treatment: * Images: * The named appointment provid er may or may not be the originator of this progress note, and it is not deemed complete until electronically signed by the appointment provider. Sign off status: Pending * Provider: Dania Rosa DPM Date: 0 04/26/2025 Generated for Asai ken/Regino/eTransmitting on: 1 08/25/2024 08:55 PM EST
--- OUTSIDE RECORDS SUMMARY | 2025-05-21 05:30 | XMS_ITS ---
Author Organization [facility] Address [address] [place] [address] Care Team Providers Care Center Administrator Name Role Phone Aylin Kent Primary Care Provider Unavailab Guera Crane Unavailable [phone] Nerissa Garcia [phone] REASON FOR VISIT Seen Sooner Encounters Encounter Location Date Provider Diagnosis [address] [address] 2025 Nerissa Garcia Plan Of Treatment No Information Progress Notes * Terry AUGUSTINE ADOB:1980 (45 yo M)Acc No.[id number] Progress Notes Patient: Lyndon HSU Terry Segovia Provider: Tyler Garcia DPM :1980 A ge:45 Y S ex:Male Date:2025 Address:[address] [place], [place] [id number] Pcp:Aylin Kent Subjective: * Chief Complaints: * 1 . Seen Sooner. * Medical History: Objective: * Vitals: Assessment: Plan: * Treatment: * Images: * The named appointment provid er may or may not be the originator of this progress note, and it is not deemed complete until electronically signed by the appointment provider. Sign off status: Pending * Provider: Tyler Garcia DPM Date: 0 2025 Generated for Printi ng/Fastephg/eTransmitting on: 08/25/2024 08:55 PM EST
--- OUTSIDE RECORDS SUMMARY | 2025-06-25 20:55 | XMS_ITS | Clinical Summary ---
Author Organization [facility] Address [address] [place] [address] Care Team Providers Care Medical Laboratory Technical Officer Name Role Phone Evonnegatotatikarishma Eduard GOLDMAN Primary Care Provider [phone] Source Comments PLEASE NOTE, if this patient [...] (ZYPREXA) 10 mg tabletIndications:C hronic schizoaffective disorder Take 1 Tab by mouth nightly at [...] 05/02/2015 Overview (05/02/2015): F/U PSYCH @ [facility] [facility]. Migraine headache 12/08/2013 Overview (10/17/2014): Seen by Dr. 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 GI F/U AT [facility]. Repeat EGD 11/29/14 still with severe erosive esophagitis on high PPI use. Repeat EGD 06/16/16 = focal esophagitis limited to area GE junctio, superficial gastritis - Bxs: mod chronic gastritis, H.pylori neg, esophagus mild reflux esophagitis Iron deficiency anemia 03/31/2012 Chronic schizoaffective disorder 06/18/2010 Overview (06/08/2013): DX: 2008. ON PSYCH F/U. Insomnia 06/18/2010 Overview (06/08/2013): ON PSYCH F/U. Right hip pain Resolved Problems Problem Noted Date Diagnosed Date Resolved Date Right knee pain 06/08/2013 12/21/2016 Vitamin B12 deficiency anemia 03/31/2012 01/04/2014 Immunizations Immunization Administration Dates Next Due Flu, Preservative Free 08/02/2017,05/19/2016 Hep B, Adult/Adol ([id number]/RECOMBIVAX-ADULT) 04/28/2011 INFLUENZA, SEASONAL, INJECTABLE 07/27/2014,06/08,09/28/2012 Family History Medical History Relation Name Comments Cancer Father COLON Diabetes Father Hypertension Father Diabetes Mother Hypertension Mother Cancer Paternal Grandmother BREAST CA Heart Problems Paternal Grandmother MD Relation Name Status Comments Father Alive Mother [...] 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
--- OUTSIDE RECORDS SUMMARY | 2025-06-25 20:55 | XMS_ITS | Patient Health Record ---
Author Organization [facility] Address [address] [facility] [place] [address] Care Team Providers Care Inside Steward/Stewardess Name Role Phone Aylin Kent Primary Care Provider Unavailab Guera Crane Unavailable [phone] Nerissa Garcia Unavailable [phone] Allergies Allergen (clinical drug ingredient) Drug/Non Drug Allergy documented on EMR Reaction Allergy Type Onset Date Status mushrooms (uncoded) Unknown Allergy Active Reason For Referral No Information Medications Medication SIG (Take, Route, Frequency, Duration) Notes Start Date End Date Status Meloxicam Active Abilify Active Immunizations Vaccine Route Administration Date Status [...] Status Risk Notes Problem Acquired hallux valgus (35121215) Hallux valgus (acquired), left foot (M20.12) Active confirmed 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) Active confirmed Vital Signs Blood pressure diastolic 80 mm Hg 05/29/2025 Height 5pr27cy in 05/29/2025 Blood pressure systolic 121 mm Hg 05/29/2025 Weight 227 lbs 05/29/2025 BMI 31.66 kg/m2 05/29/2025 Encounters Encounter Location Date Provider Diagnosis [address] [address] 03/20/2025 Guera Perica Achilles tendinitis of right lower extremity M76.61 ; Pain of right heel M79.671 ; Exostosis of right posterior calcaneus M77.31 ; Acquired Susanne's deformity of right heel M92.61 ; Short Achilles tendon (acquired), 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 ; Bursitis of left foot M77.52 ; Hallux valgus (acquired), left foot M20.12 and Tinea unguium B35.[address] [address] 05/29/2025 Guera Perica Achilles tendinitis of right lower extremity M76.61 ; Pain of right heel M79.671 ; Exostosis of right posterior calcaneus M77.31 ; Acquired Susanne's deformity of right heel M92.61 ; Short Achilles tendon (acquired), 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 ; Tinea unguium B35.1 and Pain in left toe(s) M79.675 Assessments Encounter Date Diagnosis (ICD Code) Assessment Notes Treatment Notes Treatment Clinical Notes Section Notes 03/20/2025 Pain of right heel (ICD-10 - M79.671) 03/20/2025 Achilles tendinitis of right lower extremity (ICD-10 - M76.61) Patient Educated with: HEEL CORD STRETCHES.pdf (HEEL CORD STRETCHES.pdf) Patient Educated with: RICE THERAPY.pdf (RICE THERAPY.pdf) 05/29/2025 Pain of right heel (ICD-10 - M79.671) 05/29/2025 Achilles tendinitis of right lower extremity (ICD-10 - M76.61) 05/29/2025 Exostosis of right posterior calcaneus (ICD-10 - M77.31) 03/20/2025 Exostosis of right posterior calcaneus (ICD-10 - M77.31) 03/20/2025 Acquired Susanne's deformity of right heel (ICD-10 - M92.61) 05/29/2025 Acquired Susanne's deformity of right heel (ICD-10 - M92.61) 05/29/2025 Short Achilles tendon (acquired), right ankle (ICD-10 - M67.01) 03/20/2025 Short Achilles tendon (acquired), right ankle (ICD-10 - M67.01) 03/20/2025 Bursitis of left foot (ICD-10 - M77.52) 05/29/2025 Tinea unguium (ICD-10 - B35.1) 03/20/2025 Hallux valgus (acquired), left foot (ICD-10 - M20.12) 05/29/2025 Pain in left toe(s) (ICD-10 - M79.675) 03/20/2025 Tinea unguium (ICD-10 - B35.1) Plan Of Treatment Pending Test Test Name Order Date X ray : Foot, left 3V 03/20/2025 X ray : Foot, right 3V 03/20/2025 Insurance Providers Payer Name Payer Address Payer Phone Subscriber Number Group Number Insured Name Patient Relationship to Insured Coverage Start Date Coverage End Date [facility] [employer] Claims [address] [place] [id number] Terry Quintanilla Self - patient is the insured Medical (General) History Medical History History ICD Code covid-19 Headaches/Migraines Chicken pox Surgical History Surgery Date(Month/Year) knee surgery
== END ==
LOC: HO.SL 19:30
PROVIDERS: PCP Nurse Practitioner Family; Visit Provider Physician Assistant Medical
DX: Z13.89 Encounter for screening for other disorder (principal)

== ENCOUNTER 2025-08-06 11:50 | Outpatient (REF) | payer OTHER, SELFPAY ==
[2025-08-06 18:17] LABS: Hematocrit 39.3 % (42.0-52.0); Hemoglobin 13.6 g/dl (14.0-18.0); Mean Corpuscular HGB Conc 34.6 g/dl (31.0-36.0); Mean Corpuscular Hemoglobin 31.0 pg (27.0-33.0); Mean Corpuscular Volume 89.5 fL (80.0-98.0); NRBC Abs Auto 0.000 X10*3/uL (0.0-0.012); NRBC Pct Auto 0.0 /100WBC (0.0-0.2); Platelet Count 251 X10*3/uL (160-400); Red Blood Count 4.39 X10*6/uL (4.60-5.80); White Blood Count 4.7 X10*3/uL (4.8-10.8)
[2025-08-06 18:49] LABS: Alanine Aminotransferase 42 U/L (0-40); Albumin Level 4.6 g/dL (3.5-5.0); Alkaline Phosphatase 78 U/L (39-117); Anion Gap 11 (12-20); Aspartate Amino Transferase 41 U/L (5-37); Blood Urea Nitrogen 16 mg/dL (9-16); Calcium 9.4 mg/dL (8.4-10.2); Carbon Dioxide 25 mmol/L (22-29); Chloride 106 mmol/L (96-108); Cholesterol 126 mg/dL (<200); Estimated Glomerular Filt Rate 57; Ferritin 174 ng/mL (20-250); HDL Cholesterol 29 mg/dL (>40); Iron 111 mcg/dL (45-160); Percent Iron Saturation 38 % (15-50); Potassium 4.2 mmol/L (3.3-5.1); Sodium 138 mmol/L (135-145); Total Iron Binding Capacity 296 mcg/dL (228-428); Total Protein 7.6 g/dL (6.5-8.0); Triglycerides 85 mg/dL (<150); Unsaturated Iron Binding 185 ug/dL
[2025-08-06 19:10] LABS: Folate 8.7 ng/mL (> or = 4.0); Vitamin B12 601 pg/mL (200-900)
[2025-08-06 19:10] LABS: Microalbum/Creatinine Ratio Ur 2.4 ug/mg cr (<30)
== END 2025-08-06 11:51 | disposition home or self-care (01) ==
LOC: HO.LAB 11:50
PROVIDERS: PCP Nurse Practitioner Family; Visit Provider Nurse Practitioner Family
DX: Z00.00 Encounter for general adult medical examination without abnormal findings (principal); Z23 Encounter for immunization; Z12.5 Encounter for screening for malignant neoplasm of prostate; K76.0 Fatty (change of) liver, not elsewhere classified; R73.01 Impaired fasting glucose; Z79.899 Other long term (current) drug therapy; E55.9 Vitamin D deficiency, unspecified; E53.8 Deficiency of other specified B group vitamins; E66.9 Obesity, unspecified; M25.562 Pain in left knee; Z68.32 Body mass index [BMI] 32.0-32.9, adult
CPT/HCPCS: 36415; 80053; 80061; 82043; 82306; 82570; 82607; 82728; 82746; 83036; 83540; 84153; 84443; 85027; 90471; 90656; 96127; 99212; 99396

== ENCOUNTER 2025-08-06 11:50 | Outpatient (AMB) | payer OTHER, SELFPAY ==
--- NOTE | 2025-08-06 11:51 | A.OFFPC_ITS ---
Vital Signs 08/06/25 11:58 Height 5 ft 11 in Weight 233 lb 6 oz BMI 32.5 BP 99/66 Blood Pressure Location Lt brachial Position Sitting Respiration 12 Pulse 57 Pulse Source Pulse Oximeter Temp 97.3 F Temp Source Oral Pulse Oximetry (%) 96 Oxygen Delivery Method Room Air Intake Visit Reasons: MAY CPE, resched Intake Note: CPE. Patient c/o right knee px x 1week but is slowly getting better. Press Box Custodian Required: No Allergies mushroom (MUSHROOM) Allergy (Intermediate, Verified 08/06/25 12:31) SHORTNESS OF BREATH Seasonal Allergies Allergy (Intermediate, Verified 08/06/25 12:31) Runny Nose, watery eyes valbenazine (From Ingrezza) Allergy (Unknown, Verified 08/06/25 12:31) Unknown Medication List - Last Reconciled 08/06/25 by Aylin Pizarro, CARE PROCESS MANAGER- albuterol sulfate 90 mcg/actuation 2 puffs inhalation Q4-6H PRN bupropion HCl 75 mg PO DAILY cetirizine 10 mg PO DAILY fluticasone propionate 50 mcg/actuation 2 sprays intranasal DAILY 1 month magnesium oxide 400 mg PO DAILY mecobalamin (vitamin B12) 1,000 mcg sublingual DAILY melatonin 3 mg PO BEDTIME meloxicam 7.5 mg PO DAILY PRN multivitamin with minerals 1 tab PO DAILY omega-3 fatty acids 500 mg PO DAILY omeprazole 20 mg PO DAILY pyridoxine (vitamin B6) 100 mg PO 2XW quetiapine 100 mg PO BEDTIME sodium chloride 0.65% 2 sprays intranasal Q3H Tobacco use date assessed: 08/06/25 Dental Screening Dental Screen Date: 08/06/25 Did you have a dental visit in the last 12 months?: Yes Did you have a dental problem in the last 6 months where you did not have access to dental care?: No Was dental information given to patient?: Patient has dentist HPI HPI Comments History of Present Illness Details 45 year-old male with anemia, schizoaffe ctive disorder, MDD, generalized anxiety disorder, obesity, gout, chronic tension headaches, GERD, vitamin-D deficiency, allergic rhinitis, CKD 2, IFG, family hx of colon ca (father), hiatal hernia, gastritis, 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 neuroleptic parkinsons > check imaging + sleep study RTO 6 mo Orthopedics GI Podiatry [facility] Health Maintenance: Tdap 2023 Flu 08/06/25 Colon 02/2025 [facility] [place] 5 years PSA wnl 10/2023 History of Present Illness The patient is a 45 year old male presenting for a complete physical exam. Prediabetes: - The patient has prediabetes with an A1 c of 5.8%. Obesity: - The patient has obesity with a BMI of 32.5. - He reports a desire to change his eati ng habits, noting difficulty with soda consumption. Left Knee Pain: - The patient reports sudden onset of le ft knee pain two weeks ago, which has been slowly improving. - At its worst, he was unable to bend th e knee and rated the pain as 7-8/10. - He denies any known injury, redness, o r heat. - The pain was located in the middle and along the side of the knee. - He reports taking meloxicam, which hel ped alleviate the symptoms. - Currently, the pain is 0/10. Medically-Induced Parkinsonism: - The patient was diagnosed with medical ly-induced parkinsonism by a neurologist, which caused shakiness in his left hand. - He has been off the causative medicati on, and symptoms have been improving but are not fully resolved. Past Medical History - Prediabetes - Obesity - Medically-induced parkinsonism - Left knee pain - Follow-up with neurology - History of mental health issues with m edication changes, now improved - EEG was negative for seizures Past Surgical History - Denies any surgeries since the last vi sit. Family History - Mother in October from a vir al infection. - His 19-year-old daughter has absence s eizures, transitioned from febrile seizures. - His youngest daughter is having simila r seizures. Social History - Employment: Works at a [employer]. - Housing: Recently moved back to [facility]. - Functional Status: Receives assistance from a visiting nurse for medication administration. - Nutritional Intake: Patient reports wa nting to change eating habits and struggles with soda consumption, having reverted to drinking more Coke than Sprite. Health Maintenance - Colonoscopy: Last colonoscopy was norm al; next one is due in five years. - Vaccinations: Tdap is up to date, rece ived last year and is good for 10 years. An influenza vaccine was administered today. - Laboratory Screening: Agreed to have b lood work done today to screen for anemia and other conditions. Review of Systems - Musculoskeletal: Reports intermittent left knee pain for two weeks, which has been improving. Denies redness or warmth. - Neurological: Reports persistent, thou gh improving, shakiness in the left hand after discontinuing a medication. Denies known seizures. - Constitutional: Denies any other flowers es in health. - Psychiatric: Reports mental health is better now after previous medication changes. Physical Exam General: Well developed, well nourished, in no acute distress. Appears stated age. Obesity with a BMI of 32.5. Head: Normocephalic, atraumatic. Eyes: Pupils are equal, round and reactive to light and accommodation. Conjunctivae are clear. Scleras nonicteric bilat. Vision grossly normal. Ears: TMs clear AU, EACS WNL Nose: Patent, without discharge. Neck: No carotid bruit bilat. Supple, no adenopathy or thyromegaly. Breast: Edu on SBE Lungs: Clear to auscultation bilaterally. No rales, rhonchi or wheeze noted. Good air flow in all bautista. Heart: Regular rate and rhythm. No murmurs, click, rubs or gallops are noted. Abdomen: Bowel sounds present in all quadrants. The abdomen is soft, nontender, with no masses or organomegaly noted. No hernias are noted. : Deferred. Reviewed JOSE L & recommendations Pulses: Peripheral pulses are equal and palpable bilaterally. Extremities: No clubbing, cyanosis nor edema is noted. Left knee exam is benign. Neurologic: Gait and station normal. Cranial Nerves 2-12 intact. Motor strength grossly symmetrical and intact. No sensory loss. Balance normal. Intention tremors LUE Skin: No rashes, ulcers, or lesions noted. Turgor is good. Skin color is good. Hair and nails are without abnormalities. Psych: Normal eye contact, affect and mood appropriate, and normal interactions. Patient is alert and appropriate to context Results - Labs: A1c is 5.8%. - Tests and Diagnostics: EEG was negativ e for seizures. Medical Decision Making The patient is a 45-year-old male here for a complete physical exam with several chronic and acute issues. His prediabetes remains stable with an A1c of 5.8%, which is reassuring. Given his obesity (BMI 32.5) and desire to improve eating habits, a referral to a preparation operator is appropriate to provide support and education. His acute left knee pain, which started two weeks ago, has significantly improved with meloxicam and is currently asymptomatic on exam. Since the physical exam is benign today, the plan is to continue meloxicam as needed and consider an X-ray only if symptoms recur or worsen. The patient's medically-induced parkinsonism symptoms are improving since stopping the offending agent, and he continues to follow up with neurology. R egarding his family history of seizures in his daughters, I have explained that his prior EEG was negative, and genetic testing for his daughters would need to be initiated by their providers to explore a potential genetic link. Health maintenance includes an influenza vaccine today, routine lab work, and scheduling his next annual physical. Plan 1. Complete Physical Exam - The patient will receive an influenza vaccine today. - He will undergo routine lab work today to screen for conditions like anemia. - He will schedule his next annual physi abdullahi exam at the front elevator operator. 2. Left Knee Pain - The patient should continue taking alie oxicam as needed for pain, as it has been effective. - An X-ray of the left knee will be cons idered if the pain returns or worsens. - The patient should follow up if sympto ms change, but given the benign exam today, no further immediate action is planned. 3. Obesity, IFG, Vit D def, b12 def - A referral has been placed for a nutri tionist to assist with changing eating habits. - The preparation operator will contact the marvin ent to schedule an appointment, which can be conducted in-person or by phone. - Updated labs to be completed today 4. Medically-Induced Parkinsonism - The patient continues to be followed b y neurology for this condition. Patient Instructions - You will get your flu shot today befor e you leave. - Stop at the front elevator operator to schedule you r next physical exam, 1 year. - After scheduling, you will go to the l ab to have your blood drawn today. - For your left knee pain, keep taking t he meloxicam if it starts to hurt again. Let us know if the pain comes back or gets worse, and we will consider getting an X-ray. - A preparation operator will call you to set up an appointment to help with your eating habits. You can meet with them in person or talk on the phone. - You are doing a great job managing you r prediabetes, as your A1c blood sugar test was 5.8. Consent The patient provided verbal consent to receive a flu shot today. The patient also verbally consented to have labs drawn to screen for anemia and other conditions. Patient was informed and verbally consented to the use of an ambient scribe for clinic note documentation during this visit. An additional 10 minutes was spent addressing the problem(s) noted at todays visit. This includes time spent before the visit reviewing the chart, time spent during the visit, and time spent after the visit on documentation reviewing laboratory results, diagnostic imaging, medications, performing a medically necessary evaluation, counseling on diagnoses, care coordination, ordering appropriate tests, ordering appropriate medications, review of tests performed by other providers, reporting test results with the patient, communication with other healthcare providers. [facility] Medical History (Updated 08/06/25 @ 12:48 by KAREN Grimes-BECKY) Benign essential tremor Dysphagia NIRU (generalized anxiety disorder) History of retropharyngeal abscess Left knee pain MDD (major depressive disorder) Recent bereavement Right anterior knee pain Schizoaffective disorder Tremor of left hand Surgical History (Updated 08/06/25 @ 07:43 by ELKIN Grimes) H/O colonoscopy (~02/2025) History of esophagogastroduodenoscopy (EGD) (~02/2025) History of surgery Labral tear of right hip joint S/P emergency tracheotomy for assistance in breathing (2022) Family History Father Colon cancer Alcoholism Mother Arthritis Daughter GERD (gastroesophageal reflux disease) Family/Other FH: mental illness Schizo affective schizophrenia Brother In good health Social History Household Members: Family and Other Both parents involved: No Caregiver staying overnight: No Housing: [facility] Are you a primary child care to a significant other at home: No Do you presently have visiting nurse or other home services: No 75 years or older and lives alone: No Alcohol intake: never Patient Tobacco Use Status: Never used Tobacco e-Cigarette/Vaping Use: Never Used Second Hand Smoke Exposure: No service: No Current occupational status: employed 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 1. Little interest or pleasure in doing things: not at all 2. Feeling down, depressed, or hopeless: not at all 3. Trouble falling or staying asleep, or sleeping too much: not at all 4. Feeling tired or having little energy: not at all 5. Poor appetite or overeating: not at all 6. Feeling bad about yourself - or that you are a failure or have let yourself or your family down: not at all 7. Trouble concentrating on things, such as reading the newspaper or watching television: not at all 8. Moving or speaking so slowly that other people could have noticed. Or the opposite - being so fidgety or restless that you have been moving around a lot more than usual: not at all 9. Thoughts that you would be better off or of hurting yourself in some way: not at all Total score: 0 Depression Screening Interpretation: Negative Depression Screening Done: Yes 66186 - PHQ-9 Billing: Yes Source: Developed by Drs. Anderson Mijares, Shanda Sloan, Gurpreet Cabezas and colleagues, with an educational sandra from [employer]. Thrive Questionnaire Date Thrive assessed: 08/06/25 I am a: Patient What is your living situation today?: I have a steady place to live Within the past 12 months, did the food you bought not last and you didn't have the money to get more?: I choose not to answer this question Within the past 12 months, did you worry whether your food would run out before you got money to buy more?: I choose not to answer this question Do you have trouble paying for medicines?: No Do you have trouble getting transportation to medical appointments?: I choose no t to answer this question Do you have trouble paying your heating and electricity bill?: I choose not to answer this question Do you have trouble taking care of your child, family member or friend?: I choose not to answer this question Do you have trouble with day-to-day activities such as bathing, preparing meals, shopping, managing finances, etc.?: I choose not to answer this question Are you currently unemployed and looking for a job?: I choose not to answer this question Are you interested in more education?: I choose not to answer this question Please select the resources that you would like help with: None Currently or been in a relationship where the following occur: I choose not to answer THRIVE Score: 0 AUDIT C Alcohol Use Questionnaire (AUDIT-C) 1. How often do you have a drink containing alcohol?: Never 3. How often do you have six or more drinks on one occasion?: Never Total Score: 0 Score Reviewed/Action Taken: Yes NIRU-7 AMB Questionnaire NIRU-7 Date NIRU - 7 assessed: 08/06/25 Feeling nervous, anxious, or on edge: 0 = Not at all Not being able to stop or control worryin = Not at all Worrying too much about different things: 0 = Not at all Trouble relaxin = Not at all Being so restless that it is hard to sit still: 0 = Not at all Becoming easily annoyed or irritable: 0 = Not at all Feeling afraid as if something awful might happen: 0 = Not at all Total NIRU-7 score (0-4 normal; 5-9 mild; 10-14 moderate; 15-21 severe): 0 Source: Developed by Drs. Anderson Mijares, Shanda Sloan, Gurpreet Cabezas and colleagues, with an educational sandra from [employer]. NIRU-7 Assessment Billing NIRU-7 Assessment Tool: NIRU-7 Assessment 41155 Physical exam (Primary Care) Vital Signs: Last Vital Signs Temp 97.3 F 08/06/25 11:58 Pulse 57 08/06/25 11:58 Resp 12 08/06/25 11:58 BP 99/66 08/06/25 11:58 Pulse Ox 96 08/06/25 11:58 Oxygen Delivery Method Room Air 08/06/25 11:58 BMI result Body Mass Index 32.5 BMI Assessment/Plan discussion: High BMI High, discussed plan: lifestyle Tobacco/Smoking Status: Tobacco use Status Tobacco use date assessed 08/06/25 08/06/25 11:55 Patient Tobacco Use Status Never used Tobacco 08/06/25 11:55 e-Cigarette/Vaping Use Never Used 08/06/25 11:55 PHQ-9: PHQ-9 Score PHQ-9: Total score 0 08/06/25 12:31 Depression Screening Interpretation: Negative Thrive Assessment: Date of Thrive Assessment Date Thrive assessed 08/06/25 08/06/25 11:55 Currently or been in a relationship where the following occur: I choose not to answer Office Procedures Flu Questionnaire Does the patient have a severe egg allergy?: No Does the patient have severe life threatening allergies?: No Does the patient have a fever or illness today?: No Has the patient ever had Guillain-[place] Syndrome?: No Has the patient ever had any past reaction to a flu shot?: No Results AMB Hemoglobin A1c AMB Hemoglobin A1c 5.8 % Last Edit by Angela Cook CMA on 08/06/25 12:08 Immunizations Fluarix [id number] (PF) 45 mcg (15 mcg x 3)/0.5 mL IM syringe Performing Provider: ELKIN Grimes Performing Location[place] [facility] [place] [facility] Administered by: Nikhil Cooper MA on 08/06/25 12:48 Dose Route Admin Location Dispensed Lot Number Expiration Date [facility] Permastone Applicator 0.5 mL IM Left Deltoid 0.5 mL [id number] 02/19/27 [id number] [employer] VIS Given Date VIS Provided VIS Publication Date 08/06/25 Single Vaccine 24 Eligibility Eligibility Date Funding Source Not [facility] Eligible 08/06/25 Private Results Reviewed Results Reviewed: Laboratory Last Values Hgb A1c (Clinic) 5.8 % (4.0-6.0) 08/06/25 12:02 Coding Level of Care Code Est Pt Level 2 (00062) Est Pt Prev Care 40-64y(37630) Diagnoses Annual physical exam Z00.00 Laboratory tests ordered as part of a complete physical exam (CPE) Z00.00 Influenza vaccination administered at current visit Z23 Vitamin D deficiency E55.9 IFG (impaired fasting glucose) R73.01 B12 deficiency E53.8 Obesity (BMI 30-39.9) E66.9 Left knee pain M25.562 Additional Codes NIRU-7 Assessment Billing - NIRU-7 Assessment Tool: NIRU-7 Assessment 00233 ([id number]) PHQ-9 - 81718 - PHQ-9 Billing: Yes ([id number]) Assessment & Plan Assessment & Plan (1) Annual physical exam: Onset Date: ~08/06/25 Code(s): Z00.00 - Encounter for general adult medical examination without abnormal findings Category: Medical (2) Laboratory tests ordered as part of a complete physical exam (CPE): Code(s): Z00.00 - Encounter for general adult medical examination without abnormal findings Category: Medical (3) Influenza vaccination administered at current visit: Onset Date: ~08/06/25 Code(s): Z23 - Encounter for immunization Category: Medical (4) Vitamin D deficiency: Comment: was on vitamin D3 50 mcgs p.o. daily vitamin-D level > 40. started on MVI Cont MVI repeat Vit D annually Code(s): E55.9 - Vitamin D deficiency, unspecified Category: Medical (5) IFG (impaired fasting glucose): Comment: lifestyle mods & monitoring Code(s): R73.01 - Impaired fasting glucose Category: Medical (6) B12 deficiency: Code(s): E53.8 - Deficiency of other specified B group vitamins Category: Medical (7) Obesity (BMI 30-39.9): Code(s): E66.9 - Obesity, unspecified Category: Medical (8) Left knee pain: Code(s): M25.562 - Pain in left knee Plan , Orders: Orders Influenza [id number] Immunization Today Z23 - Encounter for immunization Prostate Specific Antigen Scr Today Z00.00 - Encounter for general adult medical examination without abnormal findings AMB Hemoglobin A1c Today Z13.9 - Encounter for screening, unspecified Referrals [facility] Referral E53.8 - Deficiency of other specified B group vitamins, E55.9 - Vitamin D deficiency, unspecified, E66.9 - Obesity, unspecified, R73.01 - Impaired fasting glucose Patient Instructions: Health screenings for men You should visit your health care provider regularly, even if you feel healthy. The purpose of these visits is to: Screen for medical issues Assess your risk for future medical problems Encourage a healthy lifestyle Update vaccinations and other preventive care services Help you get to know your provider in case of an illness Information Even if you feel fine, you should still see your provider for regular checkups. These visits can help you avoid problems in the future. For example, the only way to find out if you have high blood pressure is to have it checked regularly. High blood sugar and high cholesterol level also may not have any symptoms in the early stages. Simple blood tests can check for these conditions. There are specific times when you should see your provider or receive specific health screenings. The [place] Preventive Services Task Force publishes a list of recommended screenings. Below are screening guidelines for men ages 40 to 64. BLOOD PRESSURE SCREENING Have your blood pressure checked at least once every year. Watch for blood pressure screenings in your area. Ask your provider if you can stop in to have your blood pressure checked. Ask your provider if you need your blood pressure checked more often if: You have diabetes, heart disease, kidney problems, or are overweight or have certain other health conditions You have a first-degree relative with high blood pressure You are Black Your blood pressure top number is from 120 to 129 mm Hg, or the bottom number is from 70 to 79 mm Hg If the top number is 130 mm Hg or greater or the bottom number is 80 mm Hg or greater, this is considered stage 1 hypertension. Schedule an appointment with your provider to learn how you can lower your blood pressure. Effects of age on blood pressure CHOLESTEROL SCREENING Cholesterol screening should begin at age 35 for men with no known risk factors for coronary heart disease. Repeat cholesterol screening should take place: Every 5 years for men with normal cholesterol levels More often if changes occur in lifestyle (including weight gain and diet) More often if you have diabetes, heart disease, kidney problems, or certain other conditions COLORECTAL CANCER SCREENING If you are under age 45, talk to your provider about getting screened. You may need to be screened if you have a strong family history of colon cancer or polyps. Screening may also be considered if you have risk factors such as a history of inflammatory bowel disease or polyps. If you are age 45 to 75, you should be screened for colorectal cancer. There are several screening tests available: A stool-based fecal occult blood (gFOBT) or fecal immunochemical test (FIT) every year A stool sDNA test every 1 to 3 years Flexible sigmoidoscopy every 5 years or every 10 years with stool testing FIT done every year CT colonography (virtual colonoscopy) every 5 years Colonoscopy every 10 years You may need a colonoscopy more often if you have risk factors for colorectal cancer, such as: Ulcerative colitis A personal or family history of colorectal cancer A history of growths in your colon called adenomatous polyps DENTAL EXAM Go to the dentist once or twice every year for an exam and cleaning. Your dentist will evaluate if you have a need for more frequent visits. DIABETES SCREENING All adults who do not have risk factors for diabetes should be screened starting at age 35 and repeated every 3 years. If you have other risk factors for diabetes, such as a first degree relative with diabetes, overweight or obesity, high blood pressure, prediabetes, or a history of heart disease, you may be tested more often. If you are overweight and have other risk factors, such as high blood pressure and are planning to become , screening is recommended. EYE EXAM Have an eye exam every 2 to 4 years ages 40 to 54 and every 1 to 3 years ages 55 to 64. Your provider may recommend more frequent eye exams if you have vision problems or glaucoma risk. Have an eye exam that includes an examination of your retina (back of your eye) at least every year if you have diabetes. IMMUNIZATIONS Commonly needed vaccines include: Flu shot: get one every year COVID-19 vaccine: ask your provider what is best for you Tetanus-diphtheria and acellular pertussis (Tdap) vaccine: have as one of your tetanus-diphtheria vaccines if you did not receive it as an adolescent Tetanus-diphtheria: have a booster (or Tdap) every 10 years Varicella vaccine: receive 2 doses if you never had chickenpox or the varicella vaccine and were born in 1979 or after Hepatitis B vaccine: receive 2, 3, or 4 doses, depending on your exact circums tances, if you did not receive these as a child or adolescent, until age 59 Shingles (herpes zoster) vaccine: at or after age 50 Ask your provider if you should receive other immunizations, especially if you have certain medical conditions, such as diabetes or are at increased risk for some diseases such as pneumonia. INFECTIOUS DISEASE SCREENING Screening for hepatitis C: all adults ages 18 to 79 should get a one-time test for hepatitis C. Screening for human immunodeficiency virus (HIV): all people ages 15 to 65 should get a one-time test for HIV. Depending on your lifestyle and medical history, you may need to be screened for infections such as syphilis, chlamydia, and other infections. LUNG CANCER SCREENING You should have an annual screening for lung cancer with low-dose computed tomography (LDCT) if: You are age 50 to 80 years AND You have a 20 pack-year smoking history AND You currently smoke or have quit within the past 15 years OSTEOPOROSIS SCREENING If you are age 50 to 64 and have risk factors for osteoporosis, you should discuss screening with your provider. Risk factors can include long-term steroid use, low body weight, smoking, heavy alcohol use, having a fracture after age 50, or a family history of hip fracture or osteoporosis. Osteoporosis PHYSICAL EXAM All adults should visit their provider from time to time, even if they are healthy. The purpose of these visits is to: Screen for diseases Assess risk of future medical problems Encourage a healthy lifestyle Update vaccinations and other preventive care services Maintain a relationship with a provider in case of an illness Your height, weight, and body mass index (BMI) should be checked at every exam. During your exam, your provider may ask you about: Depression and anxiety Diet and exercise Alcohol and tobacco use Safety, such as use of seat belts and smoke detectors Your medicines and risk for interactions PROSTATE CANCER SCREENING If you're 55 through 69 years old, before having the test, talk to your provider about the pros and cons of having a PSA test. Ask about: Whether screening decreases your chance of dying from prostate cancer. Whether there is any harm from prostate cancer screening, such as side effects from testing or overtreatment of cancer when discovered. Whether you have a higher risk of prostate cancer than others. If you are age 55 or younger, screening is not generally recommended. You should talk with your provider about if you have a higher risk for prostate cancer. Risk factors include: Having a family history of prostate cancer (especially a brother or father) Being If you choose to be tested, the PSA blood test is repeated over time (yearly or less often), though the best frequency is not known. Prostate examinations are no longer routinely done on men with no symptoms. Prostate cancer SKIN EXAM Your provider may check your skin for signs of skin cancer, especially if you're at high risk. People at high risk include those who have had skin cancer before, have close relatives with skin cancer, or have a weakened immune system. TESTICULAR EXAM The [place] Preventive Services Task Force (USPSTF) now recommends against performing testicular self-exams. Doing testicular self-exams has been shown to have little to no benefit.
[2025-08-06 11:58] VITALS: BP 99/66; PULSE 57; RESP 12; TEMP 36.3; O2SAT 96; BMI 32.5
== END 2025-08-06 12:50 | disposition home or self-care (01) ==
LOC: HO.HMCFM 11:51
PROVIDERS: PCP Nurse Practitioner Family; Visit Provider Nurse Practitioner Family
DX: Z00.00 Encounter for general adult medical examination without abnormal findings (principal); E55.9 Vitamin D deficiency, unspecified; E66.9 Obesity, unspecified; Z68.32 Body mass index [BMI] 32.0-32.9, adult; E53.8 Deficiency of other specified B group vitamins; R73.01 Impaired fasting glucose; M25.562 Pain in left knee; Z23 Encounter for immunization